=== PATIENT | male | born 1945 | race Caucasian/White ===

== ENCOUNTER 2017-07-29 11:45 | Inpatient (IN) | payer MEDICARE ==
[~2017-07-29] VITALS: Ht 170.2 cm; Wt 75.0 kg
[2017-07-29] VITALS (13 sets, daily range): BP systolic 139–223; BP diastolic 58–94; PULSE 46–59; RESP 15–18; TEMP 98; O2SAT 96–99
--- NOTE | 2017-07-29 11:57 | PD ---
HPI Chief Complaint: Stroke Alert Time Seen by Provider: 11:51 Travel History International Travel<30 days: No Contact w/Intl Traveler<30days: No Traveled to known affect area: No History of Present Illness HPI 72-year-old male patient with history of CAD status post Stents, presents to the ER today brought in by EMS as a stroke alert, about an hour prior to arrival , started having slurred speech, dysarthria according to EMS and family. 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 Modifying Factors: None Associated Signs & Symptoms: Stroke alert, dysarthria Risk Factors: None PFSH Social History Tobacco Use: No Allergies-Medications (Allergen,Severity, Reaction): Coded Allergies: No Known Allergies (Unverified , 07/29/17) Review of Systems Except as stated in HPI: all other systems reviewed are Neg Physical Exam Narrative GENERAL: Well-developed elderly male patient currently in mild distress. Awake and oriented 3. SKIN: Focused skin assessment warm/dry. HEAD: Atraumatic. Normocephalic. EYES: Pupils equal and round. No scleral icterus. No injection or drainage. ENT: No nasal bleeding or discharge. Mucous membranes pink and moist. NECK: Trachea midline. No JVD. CARDIOVASCULAR: Regular rate and rhythm. No murmur appreciated. RESPIRATORY: No accessory muscle use. Clear to auscultation. Breath sounds equal bilaterally. GASTROINTESTINAL: Abdomen soft, non-tender, nondistended. Hepatic and splenic margins not palpable. MUSCULOSKELETAL: No obvious deformities. No clubbing. No cyanosis. No edema. NEUROLOGICAL: Awake and alert. No obvious cranial nerve deficits. Motor grossly within normal limits. Slurred speech. No pronator drift. PSYCHIATRIC: Appropriate mood and affect; insight and judgment normal. Data Data Last Documented VS Vital Signs Date Time Temp Pulse Resp B/P (MAP) Pulse Ox O2 Delivery O2 Flow Rate FiO2 07/29/17 12:31 18 98 Room Air 07/29/17 11:49 98.0 59 213/90 (131) Orders Orders Diet Npo (07/29/17 Lunch) Activity Bed Rest (07/29/17 ) Electrocardiogram (07/29/17 ) I-Stat Profile (07/29/17 11:51) Prothrombin Time / Inr (Pt) (07/29/17 11:51) Act Partial Throm Time (Ptt) (07/29/17 11:51) Complete Blood Count With Diff (07/29/17 11:51) Fibrinogen (07/29/17 11:51) Creatine Kinase (Cpk) (07/29/17 11:51) Troponin I (07/29/17 11:51) Drug Screen, Random Urine (07/29/17 11:51) Type And Screen (07/29/17 11:51) Ct Brain W/O Iv Contrast(Rout) (07/29/17 ) Cta Brain W Iv Contrast W 3d (07/29/17 11:51) Cta Neck W Iv Contrast W 3d (07/29/17 11:51) Consult Neurology (07/29/17 ) Blood Glucose (07/29/17 11:51) Ecg Monitoring (07/29/17 11:51) Neuro Checks Q2HX12,Q4H (07/29/17 11:51) Nursing Bedside Swallow Assess .ONCE (07/29/17 11:51) Iv Access Insert/Monitor (07/29/17 11:51) NPO (07/29/17 11:51) Oximetry (07/29/17 11:51) Resp Oxygen Nc Stroke (07/29/17 ) Cath For Specimen (07/29/17 11:51) Iohexol 350 Inj (Omnipaque 350 Inj) (07/29/17 12:28) Aspirin (Aspirin) (07/29/17 12:45) Nicardipine Inj (Cardene Inj) (07/29/17 12:45) Westergren Sedimentation Rate (07/29/17 12:36) Rapid Plasma Regin (Rpr) W Ttr (07/29/17 12:36) Joan Screen (07/29/17 12:36) Thyroid Stimulating Hormone (07/29/17 12:36) Free Thyroxine (T4) (07/29/17 12:36) Vitamin B1 (Thiamine) (07/29/17 12:36) Vitamin B12 (07/29/17 12:36) Urinalysis - C+S If Indicated (07/29/17 12:36) Ast (Sgot) (07/29/17 12:36) Alt (Sgpt) (07/29/17 12:36) Mri Brain W&W/O Contrast (07/29/17 12:36) Eeg Study (07/29/17 12:36) Echo 2d Comp With Doppler (07/29/17 12:36) Holter Monitor Recording (07/29/17 12:36) Court Clerk / Telemetry ARIEL.Q8H (07/29/17 12:36) Troponin I (07/29/17 12:36) [place] (07/29/17 12:36) Clopidogrel (Plavix) (07/29/17 12:45) Aspirin Ec (Ecotrin Ec) (07/29/17 12:45) Sodium Chlor 0.9% 1000 Ml Inj (Ns 1000 M (07/29/17 12:36) Lipid Profile (07/29/17 12:36) Scd&Teds Bilateral/Knee High ARIEL.QSHIFT (07/29/17 12:36) Urine Culture (07/29/17 12:25) Admit Order (Ed Use Only) (07/29/17 13:02) Labs Laboratory Tests Test 07/29/17 11:55 07/29/17 12:25 White Blood Count 6.6 TH/MM3 Red Blood Count 4.58 MIL/MM3 Hemoglobin 14.2 GM/DL Bedside Hemoglobin 12.9 G/DL Hematocrit 41.2 % Bedside Hematocrit 38.0 % Mean Corpuscular Volume 90.0 FL Mean Corpuscular Hemoglobin 31.1 PG Mean Corpuscular Hemoglobin Concent 34.5 % Red Cell Distribution Width 13.5 % Platelet Count 213 TH/MM3 Mean Platelet Volume 7.5 FL Neutrophils (%) (Auto) 60.3 % Lymphocytes (%) (Auto) 29.9 % Monocytes (%) (Auto) 7.4 % Eosinophils (%) (Auto) 2.0 % Basophils (%) (Auto) 0.4 % Neutrophils # (Auto) 4.0 TH/MM3 Lymphocytes # (Auto) 2.0 TH/MM3 Monocytes # (Auto) 0.5 TH/MM3 Eosinophils # (Auto) 0.1 TH/MM3 Basophils # (Auto) 0.0 TH/MM3 CBC Comment DIFF FINAL Differential Comment Prothrombin Time 10.4 SEC Prothromb Time International Ratio 1.0 RATIO Activated Partial Thromboplast Time 22.9 SEC Fibrinogen 293 mg/dL Bedside Sodium 140 MMOL/L Bedside Potassium 4.2 MMOL/L Bedside Chloride 104 MMOL/L Bedside Blood Urea Nitrogen 15 MG/DL Bedside Creatinine 1.3 MG/DL Bedside Glucose 116 MG/DL Total Creatine Kinase 54 U/L Troponin I LESS THAN 0.02 NG/ML Urine Color LIGHT-YELLOW Urine Turbidity CLEAR Urine pH 7.5 Urine Specific [place] 1.018 Urine Protein NEG mg/dL Urine Glucose (UA) NEG mg/dL Urine Ketones NEG mg/dL Urine Occult Blood NEG Urine Nitrite NEG Urine Bilirubin NEG Urine Urobilinogen LESS THAN 2.0 MG/DL Urine Leukocyte Esterase MOD Urine RBC LESS THAN 1 /hpf Urine WBC 16 /hpf Microscopic Urinalysis Comment CULTURE INDICATED MDM Medical Screen Exam Complete: Yes Emergency Medical Condition: Yes Medical Record Reviewed: Yes Differential Diagnosis Stroke versus ICH versus hypertensive urgency versus metabolic issues Narrative Course CAT scan was initially negative. Dr. Martin of neurology saw the patient, does not feel the patient would be a TPA candidate, also has had some syncopal episodes over the last week according to the family, and at this point, aspirin was given in the ER. Patient will need further workup, and case was discussed with Dr. Mike for admission to medicine. Stroke Alert NIHSS NIH Stroke Scale Result: 1 NIHSS Time Completed: 11:50 Thrombolytic Contraindications Contraindications: Uncontrolled HTN at event Contraindications Comment: Fairly low NIH stroke score. Diagnosis Diagnosis: Primary Impression: CVA (cerebral vascular accident) Additional Impression: Accelerated hypertension Admitting Physician Requests: Admit Irasema Peter MD Jul 29, 2017 11:57
--- NOTE | 2017-07-29 12:13 | RADRPT ---
EXAM DATE/TIME: 07/29/2017 12:05 [facility] COMPARISON: No previous studies available for comparison. INDICATIONS : Stroke alert. Altered mental status. RADIATION DOSE: 39.54 CTDIvol (mGy) This report was called by Dr. Elise to Dr. Villalpando and DR Martin at 12: 11pm MEDICAL HISTORY : Non-responsive. SURGICAL HISTORY : Non-responsive. ENCOUNTER: Initial ACUITY: 1 day PAIN SCALE: Non-responsive LOCATION: Bilateral head TECHNIQUE: Multiple contiguous axial images were obtained of the head. Using automated exposure control and adj ustment of the mA and/or kV according to patient size, radiation dose was kept as low as reasonably a chievable to obtain optimal diagnostic quality images. DICOM format image data is available electro nically for review and comparison. FINDINGS: CEREBRUM: The ventricles are normal for age. No evidence of midline shift, mass lesion, hemorrhage or acute in farction. No extra-axial fluid collections are seen. POSTERIOR FOSSA: The cerebellum and brainstem are intact. The 4th ventricle is midline. The cerebellopontine angle i s unremarkable. EXTRACRANIAL: The visualized portion of the orbits is intact. SKULL: The calvaria is intact. No evidence of skull fracture. CONCLUSION: Normal examination. Misty Elise MD on July 29, 2017 at 12:08 Board Certified Radiologist. This report was verified electronically.
[2017-07-29 12:17] LABS: BASOPHIL % 0.4 % (0.0-2.0); EOSINOPHIL # 0.1 TH/MM3 (0-0.4); HEMATOCRIT 41.2 % (39.0-51.0); HEMOGLOBIN 14.2 GM/DL (13.0-17.0); LYMPH % 29.9 % (9.0-44.0); MEAN CORPUSCULAR HEMOGLOBIN 31.1 PG (27.0-34.0); MEAN CORPUSCULAR HGB CONC 34.5 % (32.0-36.0); MEAN PLATELET VOLUME 7.5 FL (7.0-11.0); MONO % 7.4 % (0.0-8.0); MONOCYTE # 0.5 TH/MM3 (0-0.9); NEUT % 60.3 % (16.0-70.0); PLATELET COUNT 213 TH/MM3 (150-450); RED BLOOD COUNT 4.58 MIL/MM3 (4.50-5.90); RED CELL DISTRIBUTION WIDTH 13.5 % (11.6-17.2); WHITE BLOOD COUNT 6.6 TH/MM3 (4.0-11.0)
[2017-07-29 12:28] LABS: PROTHROMBIN TIME - PATIENT 10.4 SEC (9.8-11.6)
[2017-07-29] MEDS ORDERED: IOHEXOL 350 MG/ML 10 ML VIAL (for RAD DIAG) IVCONTRAST ONE (12:28)
[2017-07-29] MEDS: SODIUM CHLOR 0.9% 1000 ML INJ 1,000 ML IV SCH (12:36)
[2017-07-29 12:39] LABS: TROPONIN I LESS THAN 0.02 NG/ML (0.02-0.05)
[2017-07-29] MEDS: ASPIRIN EC 325 MG TABEC PO SCH (12:45)
[2017-07-29] MEDS: CLOPIDOGREL 75 MG TAB PO SCH (12:45)
[2017-07-29] MEDS ORDERED: ASPIRIN 325 MG TAB PO ONE (12:45)
[2017-07-29] MEDS ORDERED: niCARdipine INJ 25 MG in SODIUM CHLOR 0.9% 250 ML INJ 240 ML IV PRN (12:45)
--- NOTE | 2017-07-29 12:50 | RADRPT ---
EXAM DATE/TIME: 07/29/2017 12:13 [facility] COMPARISON: No previous studies available for comparison. INDICATIONS : Stroke alert, altered mental status. IV CONTRAST: 85 cc Omnipaque 350 (iohexol) IV ; Cumulative dose for multiple exams. RADIATION DOSE: 28.71 CTDIvol (mGy) ; Combined studies MEDICAL HISTORY : Non-responsive. SURGICAL HISTORY : Non-responsive. ENCOUNTER: Initial ACUITY: 1 day PAIN SCALE: Non-responsive LOCATION: Bilateral head TECHNIQUE: Volumetric scanning was performed using a multi-row detector CT scanner. The data was post processed with a variety of visualization algorithms including full volume maximum intensity projection, multi -planar sliding thin slab reformation, curved planar reformation, and surface rendering techniques. Using automated exposure control and adjustment of the mA and/or kV according to patient size, radiat ion dose was kept as low as reasonably achievable to obtain optimal diagnostic quality images. DICO M format image data is available electronically for review and comparison. FINDINGS: There is excellent visualization of the major intracranial arteries out to the second-order branch ve ssels. There is no evidence for aneurysm, vessel truncation or stenosis, and no evidence for vascula r malformation. There is mild atherosclerosis identified within the bilateral carotid bulbs. No evidence of significa nt luminal narrowing. CONCLUSION: No evidence of aneurysm, dissection or stenosis. No significant luminal narrowing.. Misty Elise MD on July 29, 2017 at 12:44 Board Certified Radiologist. This report was verified electronically.
[2017-07-29 12:58] LABS: BILIRUBIN, URINE NEG (NEG); BLOOD, URINE NEG (NEG); GLUCOSE,URINE NEG (NEG); KETONE, URINE NEG (NEG); NITRITE,URINE NEG (NEG); PH, URINE 7.5 (5.0-8.5); URINE COLOR LIGHT-YELLOW (YELLW/STRAW); URINE LEUKOCYTE ESTERASE MOD (NEG)
--- NOTE | 2017-07-29 13:01 | RADRPT ---
EXAM DATE/TIME: 07/29/2017 12:13 [facility] COMPARISON: No previous studies available for comparison. INDICATIONS : Stroke alert, altered mental status. IV CONTRAST: 85 cc Omnipaque 350 (iohexol) IV ; Cumulative dose for multiple exams. RADIATION DOSE: 28.71 CTDIvol (mGy) ; Combined studies MEDICAL HISTORY : Non-responsive. SURGICAL HISTORY : Non-responsive. ENCOUNTER: Initial ACUITY: 1 day PAIN SCALE: Non-responsive LOCATION: Bilateral neck Elevated flow velocities and ICA/CCA ratios have been found to correlate with increased degrees of vessel stenosis, calculated as percentage of diameter relative to a normal segment of distal ICA/CCA. TECHNIQUE: Volumetric scanning was performed using a multirow detector CT scanner. The data was post processed with a variety of visualization algorithms including full-volume maximum intensity projection, multip lanar sliding thin-slab reformation, curved-planar reformation, and surface-rendering techniques. Us ing automated exposure control and adjustment of the mA and/or kV according to patient size, radiatio n dose was kept as low as reasonably achievable to obtain optimal diagnostic quality images. DICOM f ormat image data is available electronically for review and comparison. FINDINGS: AORTIC ARCH: There is a three-vessel origin of the great vessels from the aorta. No evidence of ostial narrowing. RIGHT CAROTID: The common carotid artery is intact. The carotid bulb has a normal configuration without ulceration o r narrowing. The internal carotid artery lumen is smooth without stenosis. The external carotid lillian ry is intact. LEFT CAROTID: The common carotid artery is intact. The carotid bulb has a normal configuration without ulceration or narrowing. The internal carotid artery lumen is smooth without stenosis. The external carotid ar aline is intact. VERTEBRALS: The vertebral arteries have a symmetric diameter. No stenotic lesions are seen. CONCLUSION: Normal vascular anatomy without evidence of stenosis, dissection significant luminal narrowing. Exten sive degenerative changes are identified within the cervical spine. The lungs are significant for a n oncalcified nodule identified within the left upper lobe measuring 4 mm. Misty Elise MD on July 29, 2017 at 12:56 Board Certified Radiologist. This report was verified electronically.
[2017-07-29] MEDS ORDERED: DEXTROSE 50% IN WATER 50 ML VIAL(D50) IV PUSH PRN (13:15)
[2017-07-29] MEDS ORDERED: GLUCAGON 1 MG/ML VIAL OTHER PRN (13:15)
--- NOTE | 2017-07-29 13:18 | MB ---
cc: Branden Martin MD DATE: 07/29/2017 HISTORY OF PRESENT ILLNESS: A 72-year-old right-handed man with hypertension, hypercholesterolemia, cardiac stent, 1 small kidney, Parkinson disease for 11 years, treated [place]. He is down here visiting and said this morning about 9:00 a.m., he had some tingling and numbness on the left fingers and then a little bit of difficulty talking. The sheet metal worker helper thought he had a little bit of left facial droop. He was brought in as a stroke alert, but really his NIH stroke scale was 1. As such, he did not get TPA. REVIEW OF SYSTEMS: He denied any headache, chest pain or palpitations, diabetes, CABG, atrial fibrillation, Coumadin, hepatic or pulmonary disease, thyroid disease, lupus, ulcer, cancer, seizure, or prior stroke. SOCIAL HISTORY: He is not a smoker or drinker, lives with his . FAMILY HISTORY: Negative for cancer, seizure or stroke. MEDICATIONS: 1. Atorvastatin 2. Finasteride. 3. Sinemet 25/100 three a day. 4. Azilect 1 mg a day. 5. Linzess. 6. Venlafaxine. 7. Plavix 75 a day. 8. Metoprolol. 9. Ranitidine. 10. Aspirin 81 mg. 11. Multivitamin. 12. Calcium alkaline. 13. Alfuzosin hydrochloride ER 10 mg. PHYSICAL EXAMINATION: VITAL SIGNS: He is afebrile, heart rate 59, respirations 17, blood pressure 213/90. NECK: There were no carotid bruits. HEART: Regular rhythm. I did not detect a murmur. NEUROLOGIC: Pupils were equal. Visual jackson are full. Extraocular movements intact without nystagmus. Face could have just a hint of droopiness in the left corner of his mouth but he moves it symmetrically with normal sensation. Tongue was midline. There is no drifting. Normal strength in upper and lower extremities bilaterally. DTRs are trace throughout. Toes downgoing bilaterally. Pinprick is intact throughout including the left side of his face and his left fingers. He is not ataxic on [id number]. Speech is fluent. He is not aphasic. Tone: No major cogwheel rigidity right now. He is a little bit clumsy on fast finger movements bilaterally due to his Parkinson's, a little bit worse in the left than the right. He has a little bit of tremor in the left hand, but he said he was shaking that himself. LABORATORY DATA: CBC is normal. Basic metabolic profile is normal at this time. Glucose 116. Coags are normal. IMAGING STUDIES: CT scan of the brain was normal. CT of the neck and [place] also looks normal. He has a little bit of calcification on the left carotid, but otherwise negative. EKG shows sinus rhythm. IMPRESSION AND PLAN: Some history of Parkinson disease, a little bit of numbness by history on the left hand and fingers and the left face, a little bit thickened speech ,sounds like a transient ischemic attack. For now, he is already on Plavix. He is in sinus rhythm here on telemetry and his CTAs are negative. We will do an echo and a Holter, and I have just increased his aspirin to 325 at this time. Do an MRI of the brain and EEG. Should get a prolonged monitor on him at some point, [place], at least a 30-day monitor, possibly a loop recorder unless something else shows up here. Check some additional blood work on him, a lipid profile. He tells me he has not missed his Plavix at all. It would be okay to run his blood pressure down to 160 at this time. I will be following him while he is in the hospital. I note at this time, his NIH stroke scale would be 0 and he did not get TPA as a result. MD ROXANA Hernandez/ALONA , 12:38 PM , 01:16 PM
--- NOTE | 2017-07-29 15:10 | MB ---
cc: Branden Martin MD DATE: 07/29/2017 ADDENDUM After talking with the family, they tell me passed out twice in the last 2 weeks and yesterday, he had a similar symptom of left-sided tingling and high blood pressure. I have recommended to have cardiology see him to the med team. MD ROXANA Hernandez/ALONA , 02:38 PM , 03:09 PM
[2017-07-29] MEDS ORDERED: ENALAPRILAT 1.25 MG/ML VIAL IV PUSH PRN (15:30)
[2017-07-29] MEDS ORDERED: METOPROLOL TARTRATE 25 MG TAB PO ONE (15:30)
--- NOTE | 2017-07-29 15:54 | HHI.HP ---
[facility] Unknown Admission Diagnosis Stroke alert/severe hypertension Diagnoses: (1) TIA (transient ischemic attack) (2) Accelerated hypertension Chief Complaint: numbness in hands Travel History International Travel<30 Days: No Contact w/Intl Traveler <30 Da: No Traveled to Known Affected Are: No History of Present Illness The patient is a 72-year-old male with history of TIA who presented to the emergency department with complaint of numbness in his hands that started this morning. He also had some difficulty speaking. His states that his speech was slurred and he had left-sided facial droop. He reported weakness on his left side. Symptoms have essentially resolved at this point. Denies headache or vision changes. Denies chest pain or dyspnea. Review of Systems Constitutional: DENIES: Fever, Chills, Night Sweats Eyes: DENIES: Blurred vision, Vision loss Ears, nose, mouth, throat: DENIES: Hearing loss Respiratory: DENIES: Cough, Wheezing, Sputum production, Shortness of breath Cardiovascular: DENIES: Chest pain, Palpitations, Dyspnea on Exertion, Lower Extremity Edema Gastrointestinal: DENIES: Abdominal pain, Constipation, Diarrhea, Nausea, Vomiting Genitourinary: DENIES: Urinary frequency, Urinary incontinence, Urgency, Hematuria, Dysuria, Nocturia Musculoskeletal: DENIES: Joint pain, Muscle aches Integumentary: DENIES: Pruritus, Rash Hematologic/lymphatic: DENIES: Bruising Neurologic: COMPLAINS OF: Paresthesias, DENIES: Headache Past Family Social History Past Medical History History of TIA in February 2017 Coronary artery disease Parkinson's Past Surgical History Cardiac catheterization with placement of 2 stents Reported Medications Metoprolol 25 mg twice daily Plavix 75 mg daily Atorvastatin Finasteride Sinemet Azilect Linzess Venlafaxine Ranitidine Aspirin 81 mg daily Multivitamin Calcium supplement Alfuzosin Allergies: Coded Allergies: No Known Allergies (Unverified , 07/29/17) Family History Heart disease Social History Denies tobacco or illicit drug use. Rare alcohol use. Physical Exam Vital Signs Vital Signs Date Time Temp Pulse Resp B/P (MAP) Pulse Ox O2 Delivery O2 Flow Rate FiO2 4/7/18 15:15 50 139/58 (85) 07/29/17 15:00 55 144/65 (91) 07/29/17 14:50 99 Room Air 07/29/17 14:45 50 149/68 (95) 07/29/17 14:00 46 185/79 (114) 07/29/17 13:25 51 18 141/65 (90) 99 Room Air 07/29/17 13:10 50 209/83 07/29/17 12:31 18 98 Room Air 07/29/17 12:31 98 Room Air 07/29/17 11:49 98.0 59 17 213/90 (131) 98 Physical Exam GENERAL: Well-nourished, well-developed male in no acute distress. HEENT: Normocephalic, atraumatic. Pupils equal, round and reactive. Extraocular movements intact. No scleral icterus. No injection or drainage. Oropharynx is clear. Mucous membranes are moist. CARDIOVASCULAR: Regular rate and rhythm without murmurs, gallops, or rubs. RESPIRATORY: Clear to auscultation. No wheezes, rales, or rhonchi. Breathing is non-labored. GASTROINTESTINAL: Abdomen soft, non-tender, nondistended. EXTREMITIES: No lower extremity edema. No calf tenderness. PSYCH: Alert and oriented x 3. NEURO: Cranial nerves II through XII are grossly intact. Strength is 5/5 in upper and lower extremities. Laboratory Laboratory Tests Test 07/29/17 11:55 07/29/17 12:25 White Blood Count 6.6 Red Blood Count 4.58 Hemoglobin 14.2 Bedside Hemoglobin 12.9 Hematocrit 41.2 Bedside Hematocrit 38.0 Mean Corpuscular Volume 90.0 Mean Corpuscular Hemoglobin 31.1 Mean Corpuscular Hemoglobin Concent 34.5 Red Cell Distribution Width 13.5 Platelet Count 213 Mean Platelet Volume 7.5 Neutrophils (%) (Auto) 60.3 Lymphocytes (%) (Auto) 29.9 Monocytes (%) (Auto) 7.4 Eosinophils (%) (Auto) 2.0 Basophils (%) (Auto) 0.4 Neutrophils # (Auto) 4.0 Lymphocytes # (Auto) 2.0 Monocytes # (Auto) 0.5 Eosinophils # (Auto) 0.1 Basophils # (Auto) 0.0 CBC Comment DIFF FINAL Differential Comment Prothrombin Time 10.4 Prothromb Time International Ratio 1.0 Activated Partial Thromboplast Time 22.9 Fibrinogen 293 Bedside Sodium 140 Bedside Potassium 4.2 Bedside Chloride 104 Bedside Blood Urea Nitrogen 15 Bedside Creatinine 1.3 Bedside Glucose 116 Total Creatine Kinase 54 Troponin I LESS THAN 0.02 Urine Color LIGHT-YELLOW Urine Turbidity CLEAR Urine pH 7.5 Urine Specific Herre[place] 1.018 Urine Protein NEG Urine Glucose (UA) NEG Urine Ketones NEG Urine Occult Blood NEG Urine Nitrite NEG Urine Bilirubin NEG Urine Urobilinogen LESS THAN 2.0 Urine Leukocyte Esterase MOD Urine RBC LESS THAN 1 Urine WBC 16 Microscopic Urinalysis Comment CULTURE INDICATED Urine Opiates Screen NEG Urine Barbiturates Screen NEG Urine Amphetamines Screen NEG Urine Benzodiazepines Screen NEG Urine Cocaine Screen NEG Urine Cannabinoids Screen NEG Date/Time Source Procedure Growth Status 07/29/17 12:25 Urine Clean Catch Urine Culture Pending Received Result Diagram: 07/29/17 1155 Imaging Last Impressions Neck CTA 07/29/17 1151 Signed Impressions: Service Date/Time: Saturday, July 29, 2017 12:13 - CONCLUSION: Normal vascular anatomy without evidence of stenosis, dissection significant luminal narrowing. Extensive degenerative changes are identified within the cervical spine. The lungs are significant for a noncalcified nodule identified within the left upper lobe measuring 4 mm. Misty Elise MD Head CTA 07/29/17 1151 Signed Impressions: Service Date/Time: Saturday, July 29, 2017 12:13 - CONCLUSION: No evidence of aneurysm, dissection or stenosis. No significant luminal narrowing.. Misty Elise MD Head CT 07/29/17 0000 Signed Impressions: Service Date/Time: Saturday, July 29, 2017 12:05 - CONCLUSION: Normal examination. Misty Elise MD Caprini VTE Risk Assessment Caprini VTE Risk Assessment: Mod/High Risk (score >= 2) Caprini Risk Assessment Model Point Value = 1 Point Value = 2 Point Value = 3 Point Value = 5 Age 41-60 Minor surgery BMI > 25 kg/m2 Swollen legs Varicose veins or History of unexplained or recurrent spontaneous Oral contraceptives or hormone replacement Sepsis (< 1 month) Serious lung disease, including pneumonia (< 1 month) Abnormal pulmonary function Acute myocardial infarction Congestive heart failure (< 1 month) History of inflammatory bowel disease Medical patient at bed rest Age 61-74 Arthroscopic surgery Major open surgery (> 45 min) Laparoscopic surgery (> 45 min) Malignancy Confined to bed (> 72 hours) Immobilizing plaster cast Central venous access Age >= 75 History of VTE Family history of VTE Factor V Leiden Prothrombin [id number] Lupus anticoagulant Anticardiolipin antibodies Elevated serum homocysteine Heparin-induced thrombocytopenia Other congenital or acquired thrombophilia Stroke (< 1 month) Elective arthroplasty Hip, pelvis, or leg fracture Acute spinal cord injury (< 1 month) Prophylaxis Regimen Total Risk Factor Score Risk Level Prophylaxis Regimen 0-1 Low Early ambulation 2 Moderate Order ONE of the following: *Sequential Compression Device (SCD) *Heparin 5000 units SQ BID 3-4 Higher Order ONE of the following medications: *Heparin 5000 units SQ TID *Enoxaparin/Lovenox 40 mg SQ daily (WT < 150 kg, CrCl > 30 mL/min) *Enoxaparin/Lovenox 30 mg SQ daily (WT < 150 kg, CrCl > 10-29 mL/min) *Enoxaparin/Lovenox 30 mg SQ BID (WT < 150 kg, CrCl > 30 mL/min) AND/OR *Sequential Compression Device (SCD) 5 or more Highest Order ONE of the following medications: *Heparin 5000 units SQ TID (Preferred with Epidurals) *Enoxaparin/Lovenox 40 mg SQ daily (WT < 150 kg, CrCl > 30 mL/min) *Enoxaparin/Lovenox 30 mg SQ daily (WT < 150 kg, CrCl > 10-29 mL/min) *Enoxaparin/Lovenox 30 mg SQ BID (WT < 150 kg, CrCl > 30 mL/min) AND *Sequential Compression Device (SCD) Assessment and Plan Assessment and Plan 1. TIA: Patient developed numbness in his hands, slurred speech, and left facial droop. Symptoms have resolved. Imaging is unremarkable. Appreciate neurology recommendations. Patient was not a candidate to receive TPA. Continue Plavix. Echocardiogram, Holter monitor ordered. Aspirin increased to 325 mg daily. Cardiology consulted. 2. Hypertensive urgency: Blood pressure significantly elevated. Patient was placed on nicardipine drip initially. Will transition him off of the nicardipine and increase oral beta-cherie. Vasotec IV as needed. 3. Coronary artery disease: No chest pain. Check serial cardiac enzymes. Patient's states that he is due to have another stent placed when he returns to [place]. Consult cardiology for further recommendations. 4. DVT prophylaxis: SHARI Freitas. Volodymyr Mike MD Jul 29, 2017 15:54
[2017-07-29 16:14] LABS: AST (GOT) 19 U/L (15-37); CHOLESTEROL 138 MG/DL (120-200)
[2017-07-29 16:40] LABS: ALT (GPT) 22 U/L (12-78); CHOLESTEROL/ HDL RATIO 2.35 RATIO; HDL CHOLESTEROL 58.6 MG/DL (40.0-60.0); LDL CHOLESTEROL 53 MG/DL (0-99); TRIGLYCERIDES 132 MG/DL (42-150); TROPONIN I LESS THAN 0.02 NG/ML (0.02-0.05)
[2017-07-29] MEDS ORDERED: GADODIAMIDE PF 287 MG/ML 20 ML VIAL (for RAD MRI) IVCONTRAST ONE (16:42)
[2017-07-29] MEDS: INSULIN ASPART SUPPLEMENTAL SCALE SQ SCH ×2 (17:00→21:00)
[2017-07-29] MEDS ORDERED: PLAV75TA29 PO (17:29)
[2017-07-29] MEDS ORDERED: ALFU10TA2 PO (17:29)
[2017-07-29] MEDS ORDERED: VENL100T PO (17:29)
[2017-07-29] MEDS ORDERED: METO25TA3 PO (17:29)
[2017-07-29] MEDS ORDERED: CARB25TA9 PO ×2 (17:29)
[2017-07-29] MEDS ORDERED: LINA145C PO (17:29)
[2017-07-29] MEDS ORDERED: AZIL1TAB2 (17:29)
[2017-07-29] MEDS ORDERED: ATOR20TA15 PO (17:29)
[2017-07-29] MEDS ORDERED: RANI150T PO (17:29)
[2017-07-29] MEDS ORDERED: ASPI-516 CHEW (17:29)
[2017-07-29 17:37] LABS: TROPONIN I LESS THAN 0.02 NG/ML (0.02-0.05)
--- NOTE | 2017-07-29 18:27 | RADRPT ---
EXAM DATE/TIME: 07/29/2017 16:26 [place] COMPARISON: No previous studies available for comparison. INDICATIONS : Slurred speech. Left side weakness. CONTRAST: 16 cc Omniscan (gadodiamide) IV MEDICAL HISTORY : Parkinson's. Hypertension. SURGICAL HISTORY : Coronary artery stent. ENCOUNTER: Initial ACUITY: 1 day PAIN SCORE: 0/10 LOCATION: cranial TECHNIQUE: Multiplanar, multisequence MRI of the brain was performed both prior to and following the administrat ion of paramagnetic contrast. FINDINGS: CEREBRUM: The ventricles are normal for age. No evidence of midline shift, mass lesion, hemorrhage or acute in farction. No extraaxial fluid collections are seen. The pituitary gland and suprasellar cistern are normal in configuration. WHITE MATTER: Scattered signal abnormalities are seen in the white matter. POSTERIOR FOSSA: The cerebellum and brainstem are intact. The 4th ventricle is midline. The cerebellopontine angle is unremarkable. The cerebellar tonsils are normal in position. DIFFUSION IMAGING: No focal areas of restricted diffusion are seen. No evidence of acute infarction. EXTRACRANIAL: The visualized portions of the orbits and paranasal sinuses are unremarkable. POST-CONTRAST: No abnormal areas of parenchymal or dural enhancement. No evidence of blood-brain barrier breakdown. CONCLUSION: 1. Cerebral white matter disease with scattered T2 hyperintensities characteristic of chronic microva scular ischemic changes. 2. No evidence of acute infarct, hemorrhage, mass or edema. Robert Trevizo MD on July 29, 2017 at 18:23 Board Certified Radiologist. This report was verified electronically.
--- NOTE | 2017-07-29 20:36 | MB ---
cc: Dusty Connelly DO DATE: 07/29/2017 REASON FOR CONSULTATION: TIA, syncopal episode. HISTORY OF PRESENT ILLNESS: Eugenio Alcantara is a pleasant 72-year-old male who presented to [facility] Emergency Room on 07/29/2017 due to numbness in his hands that started this morning. The patient is overall a difficult historian as he is having some dysarthria. Apparently his was around earlier to get more information from, but when seeing the patient no family is around. Apparently when chemical process operator arrived, he had some left facial droop and was brought in as a stroke alert. Apparently, the mentioned to the ER doctor, as well as neurology that he has passed out twice in the last 2 weeks and had similar symptoms of left-sided tingling with high blood pressure. I was asked to see him due to this as well as his history of coronary artery disease. Per the notes, the patient had recent stenting done and is due to have another stent placed when he returns to [place]. I have no further information on this at this time. PAST MEDICAL HISTORY: 1. Coronary artery disease. 2. TIA (02/2017). 3. Parkinson's. PAST SURGICAL HISTORY: Cardiac catheterization with placement of 2 stents to unknown coronary anatomy (done in [place]). ALLERGIES: NO KNOWN DRUG ALLERGIES. MEDICATIONS: 1. Alfuzosin 10 mg daily. 2. Plavix 75 mg daily. 3. Lipitor 20 mg every night. 4. Metoprolol tartrate 25 mg b.i.d. 5. Aspirin 81 mg daily. 6. Effexor 150 mg daily. 7. Carbidopa/levodopa 25/100 every 8 hours. 8. ____ 150 mg daily. 9. Linzess 145 mcg daily. FAMILY HISTORY: Denies premature coronary artery disease or sudden cardiac within the family. SOCIAL HISTORY: Denies tobacco, alcohol or drug abuse. REVIEW OF SYSTEMS: Fourteen systems were reviewed including osteopathic. Pertinent positives and negatives above, otherwise negative. PHYSICAL EXAMINATION: VITAL SIGNS: Temperature 98.0, heart rate 55, blood pressure 144/65, respirations 18, pulse oximetry 99% on room air. GENERAL: The patient appears well, no acute distress. Alert, awake and oriented x 3. HEENT: Extraocular muscles intact. Mucous membranes moist. NECK: Supple. No JVD at 45 degrees. No carotid bruits heard bilaterally. Carotid upstroke is brisk in nature. HEART: Mildly bradycardic, but positive first and second heart sounds with no noted murmurs, gallops or rubs. LUNGS: Clear to auscultation bilaterally. No wheezes, rales or rhonchi. ABDOMEN: Soft, nontender, nondistended. No organomegaly noted. EXTREMITIES: Show no clubbing, cyanosis or edema. Femoral and distal pulses intact bilaterally. NEUROLOGIC: Does have minimal facial droop noted on the left side. Otherwise, no focal deficits noted. OSTEOPATHIC: No kyphoscoliosis, lordosis or paraspinal tender points. LABORATORY DATA: Hemoglobin 14.2, hematocrit 41.2, platelets 213. Potassium 4.2, BUN 15, creatinine 1.3. Troponin negative x 2. Electrocardiogram (07/29/2017 at 1236) sinus rhythm with possible PACs versus an atrial bigeminy, nonspecific ST-T wave changes. IMPRESSIONS: 1. Transient ischemic attack. 2. Hypertensive urgency. 3. Coronary artery disease. 4. Syncopal episode of unknown cause. 5. Probable atrial bigeminy by EKG. RECOMMENDATIONS: 1. Mr. Alcantara presented with TIA-like symptoms and will be worked up per neurology. 2. We will plan on checking a 2-D echo to look at his overall left ventricular function, cardiac structure and possible valvulopathies. 3. As far as his coronary artery disease goes, he can continue on aspirin and Plavix therapy. At this time, he has no symptoms concerning for changes of his coronary anatomy, as well as having a recent TIA would be contraindicated for further consideration of ischemic evaluation. 4. Overall, he needs better blood pressure control. 5. He does have atrial bigeminy on his EKG, but this in itself should not lead to syncopal episodes. Syncope may be due to hypertensive urgency. 6. Overall, I agree with Dr. Martin that he should have some type of rhythm analysis, but this may have to be deferred until he is back in [place] with his rn clinician for a longer event monitor of 30 days or loop recorder. Thank you for allowing me to see Eugenio Alcantara. If there are any questions, please do not hesitate to call. Dusty Connelly DO VGP/rt , 05:43 PM , 08:35 PM MTDRaven
[2017-07-29] MEDS ORDERED: METOPROLOL TARTRATE 50 MG TAB PO SCH (21:00)
[2017-07-29] MEDS: METOPROLOL TARTRATE 25 MG TAB PO SCH (21:00)
[2017-07-29] MEDS ORDERED: cloNIDine HCL 0.1 MG TAB PO ONE (21:15)
[2017-07-29 23:02] LABS: TROPONIN I LESS THAN 0.02 NG/ML (0.02-0.05)
[2017-07-30] VITALS (27 sets, daily range): BP systolic 98–200; BP diastolic 54–92; PULSE 48–83; RESP 15–17; TEMP 97.5–97.8; O2SAT 97–100
[2017-07-30 05:13] LABS: CHOLESTEROL/ HDL RATIO 2.54 RATIO; HDL CHOLESTEROL 56.6 MG/DL (40.0-60.0)
[2017-07-30] MEDS ORDERED: hydrALAZINE HCL 20 MG/ML VIAL IV PUSH ONE (05:45)
[2017-07-30] MEDS: SODIUM CHLOR 0.9% 1000 ML INJ 1,000 ML IV SCH ×3 (05:57→23:35)
--- NOTE | 2017-07-30 07:23 | HHI.PR ---
Subjective Remarks sr no new co Objective Vital Signs Date Time Temp Pulse Resp B/P (MAP) Pulse Ox O2 Delivery O2 Flow Rate FiO2 07/30/17 07:07 77 17 169/77 (107) 100 07/30/17 06:41 63 15 153/71 (98) 99 Room Air 07/30/17 06:24 53 16 131/63 (85) 99 Room Air 07/30/17 06:03 57 17 173/83 (113) 99 Room Air 07/30/17 05:45 54 16 189/86 (120) 97 Room Air 07/30/17 05:34 54 15 200/89 (126) 98 Room Air 07/30/17 05:00 48 15 186/83 (117) 97 Room Air 07/30/17 04:04 54 16 183/84 (117) 97 Room Air 07/30/17 03:00 48 15 190/84 (119) 98 Room Air 07/30/17 02:20 52 15 173/80 (111) 99 Room Air 07/30/17 00:05 50 15 178/83 (114) 97 Room Air 07/29/17 23:30 48 15 168/78 (108) 96 Room Air 07/29/17 23:00 54 16 185/84 (117) 96 Room Air 07/29/17 22:28 47 17 191/89 (123) 96 Room Air 07/29/17 22:20 51 17 203/92 (129) 97 Room Air 07/29/17 22:01 55 17 223/93 (136) 97 Room Air 07/29/17 18:07 52 204/94 (130) 07/29/17 15:15 50 139/58 (85) 07/29/17 15:00 55 144/65 (91) 07/29/17 14:50 99 Room Air 07/29/17 14:45 50 149/68 (95) 07/29/17 14:00 46 185/79 (114) 07/29/17 13:25 51 18 141/65 (90) 99 Room Air 07/29/17 13:10 50 209/83 07/29/17 12:31 18 98 Room Air 07/29/17 12:31 98 Room Air 07/29/17 11:49 98.0 59 17 213/90 (131) 98 Result Diagram: 07/29/17 1155 Objective Remarks speech clear now vff face sym 5/5 clumsy bilat left hand tremor Assessment and Plan Assessment and Plan imp PD i wonder if just a bad PD day with speech change however that does not account for the left hand tingle if echo neg could dc on asa 325 and plavix and need fu with cards and neuro up [facility] here ctax2 nl and mri neg labs all ok ldl nl check standing bp needs bp lower now too high can run to 120/70 Branden Martin MD Jul 30, 2017 07:23
[2017-07-30] MEDS: INSULIN ASPART SUPPLEMENTAL SCALE SQ SCH ×4 (08:00→21:00)
[2017-07-30] MEDS ORDERED: CLOPIDOGREL 75 MG TAB PO SCH (09:00)
[2017-07-30] MEDS ORDERED: ASPIRIN 81 MG CHEW TAB CHEW SCH (09:00)
[2017-07-30] MEDS ORDERED: NON-FORMULARY DRUG (Linaclotide (Linzess) 145 MCG) PO SCH (09:00)
[2017-07-30] MEDS ORDERED: METOPROLOL TARTRATE 25 MG TAB PO SCH (09:00)
[2017-07-30] MEDS: TAMSULOSIN HCL 0.4 MG CAP PO SCH (10:00)
[2017-07-30] MEDS: VENLAFAXINE HCL 25 MG TAB PO SCH (10:01)
[2017-07-30] MEDS: CLOPIDOGREL 75 MG TAB PO SCH (10:01)
[2017-07-30] MEDS: amLODIPine BESYLATE 5 MG TAB PO SCH (10:01)
[2017-07-30] MEDS: METOPROLOL TARTRATE 25 MG TAB PO SCH ×2 (10:02→21:00)
[2017-07-30] MEDS: ASPIRIN EC 325 MG TABEC PO SCH (10:03)
[2017-07-30] MEDS: FAMOTIDINE 20 MG TAB PO SCH ×2 (10:56→21:12)
[2017-07-30 12:48] LABS: HEMOGLOBIN A1C 5.4 % (4.3-6.0)
--- NOTE | 2017-07-30 14:02 | PD.CARD.PN ---
Subjective Subjective Remarks No events overnight Feels well Speech back to baseline per Objective Medications Current Medications Medications (Trade) Dose Ordered Sig/Szuie Route Start Time Stop Time Status Last Admin (Plavix) 75 mg DAILY PO 07/29/17 12:45 07/30/17 10:01 (Ecotrin Ec) 325 mg DAILY PO 07/29/17 12:45 07/30/17 10:03 Sodium Chloride 1,000 ml @ 75 mls/hr [id number] IV 07/29/17 12:36 07/30/17 05:57 (NovoLOG SUPPLEMENTAL SCALE) 1 ACHS SQ 07/29/17 17:00 (D50w (Vial) Inj) 50 ml UNSCH PRN IV PUSH 07/29/17 13:15 (Glucagon Inj) 1 mg UNSCH PRN OTHER 07/29/17 13:15 (Vasotec Inj) 1.25 mg Q6H PRN IV PUSH 07/29/17 15:30 07/30/17 03:14 (Lopressor) 25 mg Q12HR PO 07/29/17 21:00 07/30/17 10:02 (Norvasc) 5 mg DAILY PO 07/30/17 09:00 07/30/17 10:01 (Lipitor) 20 mg HS PO 07/30/17 21:00 (Sinemet 25-100 Mg) 1 tab Q8HR PO 07/30/17 14:00 (Effexor) 150 mg DAILY PO 07/30/17 09:00 07/30/17 10:01 (Flomax) 0.4 mg DAILY PO 07/30/17 10:00 Non-Formulary Medication 145 mcg DAILY PO 07/30/17 09:00 UNV (Pepcid) 20 mg BID PO 07/30/17 09:30 07/30/17 10:56 Vital Signs / I&O Vital Signs Date Time Temp Pulse Resp B/P (MAP) Pulse Ox O2 Delivery O2 Flow Rate FiO2 07/30/17 13:21 62 158/88 (111) 64 99/58 (72) 62 147/92 (110) 07/30/17 13:00 56 17 117/57 (77) 07/30/17 08:44 61 161/73 (102) 07/30/17 07:32 100 07/30/17 07:30 140/67 (91) 07/30/17 07:29 62 98/54 (69) 100 07/30/17 07:26 83 17 106/57 (73) Room Air 07/30/17 07:07 77 17 169/77 (107) 100 07/30/17 06:41 63 15 153/71 (98) 99 Room Air 07/30/17 06:24 53 16 131/63 (85) 99 Room Air 07/30/17 06:03 57 17 173/83 (113) 99 Room Air 07/30/17 05:45 54 16 189/86 (120) 97 Room Air 07/30/17 05:34 54 15 200/89 (126) 98 Room Air 07/30/17 05:00 48 15 186/83 (117) 97 Room Air 07/30/17 04:04 54 16 183/84 (117) 97 Room Air 07/30/17 03:00 48 15 190/84 (119) 98 Room Air 07/30/17 02:20 52 15 173/80 (111) 99 Room Air 07/30/17 00:05 50 15 178/83 (114) 97 Room Air 07/29/17 23:30 48 15 168/78 (108) 96 Room Air 07/29/17 23:00 54 16 185/84 (117) 96 Room Air 07/29/17 22:28 47 17 191/89 (123) 96 Room Air 07/29/17 22:20 51 17 203/92 (129) 97 Room Air 07/29/17 22:01 55 17 223/93 (136) 97 Room Air 07/29/17 18:07 52 204/94 (130) 07/29/17 15:15 50 139/58 (85) 07/29/17 15:00 55 144/65 (91) 07/29/17 14:50 99 Room Air 07/29/17 14:45 50 149/68 (95) 07/29/17 14:00 46 185/79 (114) Physical Exam GENERAL: NAD, AAOX3 SKIN: Warm and dry. HEAD: Atraumatic. Normocephalic. EYES: Pupils equal and round. No scleral icterus. No injection or drainage. ENT: No nasal bleeding or discharge. Mucous membranes pink and moist. NECK: Trachea midline. No JVD. CARDIOVASCULAR: Regular rate and rhythm. RESPIRATORY: No accessory muscle use. Clear to auscultation. Breath sounds equal bilaterally. GASTROINTESTINAL: Abdomen soft, non-tender, nondistended. Hepatic and splenic margins not palpable. MUSCULOSKELETAL: Extremities without clubbing, cyanosis, or edema. No obvious deformities. NEUROLOGICAL: Awake and alert. No obvious cranial nerve deficits. Motor grossly within normal limits. Five out of 5 muscle strength in the arms and legs. Normal speech. PSYCHIATRIC: Appropriate mood and affect; insight and judgment normal. Laboratory Laboratory Tests Test 07/29/17 15:28 07/29/17 16:00 07/29/17 22:15 07/30/17 04:20 Erythrocyte Sedimentation Rate 11 mm/hr Aspartate Amino Transf (AST/SGOT) 19 U/L Alanine Aminotransferase (ALT/SGPT) 22 U/L Troponin I LESS THAN 0.02 NG/ML LESS THAN 0.02 NG/ML LESS THAN 0.02 NG/ML Triglycerides Level 132 MG/DL 127 MG/DL Cholesterol Level 138 MG/DL 144 MG/DL LDL Cholesterol 53 MG/DL 62 MG/DL HDL Cholesterol 58.6 MG/DL 56.6 MG/DL Cholesterol/HDL Ratio 2.35 RATIO 2.54 RATIO Vitamin B12 Level 678 PG/ML Free Thyroxine 1.00 NG/DL Thyroid Stimulating Hormone 3rd Gen 3.020 uIU/ML Total Creatine Kinase 38 U/L 48 U/L Hemoglobin A1c 5.4 % Assessment and Plan Problem List: (1) CAD (coronary artery disease) ICD Codes: I25.10 - Atherosclerotic heart disease of [place] coronary artery without angina pectoris (2) Parkinsonism ICD Codes: G20 - Parkinson's disease (3) TIA (transient ischemic attack) ICD Codes: G45.9 - Transient cerebral ischemic attack, unspecified (4) Accelerated hypertension ICD Codes: I10 - Essential (primary) hypertension Status: Acute Assessment and Plan 1) TIA Per neurology 2) CAD Stable, can follow up with cardiology up in [place] Per the , he had 2-3 stents in Feb and is due for another in the near future when they go back Con't ASA/Plavix 3) Syncope Possible due to hypertensive urgency? Patient asymptomatic before the events, no CP/SOB/palpitations Needs moth exterminator rhythm analysis Previously had 30 day monitor at home Recommend either another event monitor or loop recorder once back in [place] 4) HTN Somewhat better controlled today 5) 2D echo pending Dusty Connelly DO Jul 30, 2017 14:02
--- NOTE | 2017-07-30 15:01 | HHI.PR ---
Subjective Remarks The patient is a 72-year-old male with history of TIA who presented to the emergency department with complaint of numbness in his hands that started this morning. He also had some difficulty speaking. His states that his speech was slurred and he had left-sided facial droop. He reported weakness on his left side. Symptoms have essentially resolved at this point. Denies headache or vision changes. Denies chest pain or dyspnea. 07-30 patient has been seen by cardiology and neurology. Patient is having blatant orthostasis Discussed with RN and patient and family and Patient is going for a stat MRI due to symptoms that appear to sound more like orthostasis and hypotension, than actual stroke or TIA, similar symptoms from his Parkinson's Patient will need event monitor when he goes back to [place] Echo is pending We will more than likely be cleared by neurology but will hold him today due to his hypotension and orthostasis Objective Vitals Vital Signs Date Time Temp Pulse Resp B/P (MAP) Pulse Ox O2 Delivery O2 Flow Rate FiO2 07/30/17 13:21 62 158/88 (111) 64 99/58 (72) 62 147/92 (110) 07/30/17 13:00 56 17 117/57 (77) 07/30/17 08:44 61 161/73 (102) 07/30/17 07:32 100 07/30/17 07:30 140/67 (91) 07/30/17 07:29 62 98/54 (69) 100 07/30/17 07:26 83 17 106/57 (73) Room Air 07/30/17 07:07 77 17 169/77 (107) 100 07/30/17 06:41 63 15 153/71 (98) 99 Room Air 07/30/17 06:24 53 16 131/63 (85) 99 Room Air 07/30/17 06:03 57 17 173/83 (113) 99 Room Air 07/30/17 05:45 54 16 189/86 (120) 97 Room Air 07/30/17 05:34 54 15 200/89 (126) 98 Room Air 07/30/17 05:00 48 15 186/83 (117) 97 Room Air 07/30/17 04:04 54 16 183/84 (117) 97 Room Air 07/30/17 03:00 48 15 190/84 (119) 98 Room Air 07/30/17 02:20 52 15 173/80 (111) 99 Room Air 07/30/17 00:05 50 15 178/83 (114) 97 Room Air 07/29/17 23:30 48 15 168/78 (108) 96 Room Air 07/29/17 23:00 54 16 185/84 (117) 96 Room Air 07/29/17 22:28 47 17 191/89 (123) 96 Room Air 07/29/17 22:20 51 17 203/92 (129) 97 Room Air 07/29/17 22:01 55 17 223/93 (136) 97 Room Air 07/29/17 18:07 52 204/94 (130) 07/29/17 15:15 50 139/58 (85) 07/29/17 15:00 55 144/65 (91) Result Diagram: 07/29/17 1155 Other Results Laboratory Tests Test 07/29/17 11:55 07/29/17 12:25 07/29/17 15:28 07/29/17 16:00 White Blood Count 6.6 TH/MM3 Red Blood Count 4.58 MIL/MM3 Hemoglobin 14.2 GM/DL Bedside Hemoglobin 12.9 G/DL Hematocrit 41.2 % Bedside Hematocrit 38.0 % Mean Corpuscular Volume 90.0 FL Mean Corpuscular Hemoglobin 31.1 PG Mean Corpuscular Hemoglobin Concent 34.5 % Red Cell Distribution Width 13.5 % Platelet Count 213 TH/MM3 Mean Platelet Volume 7.5 FL Neutrophils (%) (Auto) 60.3 % Lymphocytes (%) (Auto) 29.9 % Monocytes (%) (Auto) 7.4 % Eosinophils (%) (Auto) 2.0 % Basophils (%) (Auto) 0.4 % Neutrophils # (Auto) 4.0 TH/MM3 Lymphocytes # (Auto) 2.0 TH/MM3 Monocytes # (Auto) 0.5 TH/MM3 Eosinophils # (Auto) 0.1 TH/MM3 Basophils # (Auto) 0.0 TH/MM3 CBC Comment DIFF FINAL Differential Comment Prothrombin Time 10.4 SEC Prothromb Time International Ratio 1.0 RATIO Activated Partial Thromboplast Time 22.9 SEC Fibrinogen 293 mg/dL Bedside Sodium 140 MMOL/L Bedside Potassium 4.2 MMOL/L Bedside Chloride 104 MMOL/L Bedside Blood Urea Nitrogen 15 MG/DL Bedside Creatinine 1.3 MG/DL Bedside Glucose 116 MG/DL Total Creatine Kinase 54 U/L 38 U/L Troponin I LESS THAN 0.02 NG/ML LESS THAN 0.02 NG/ML LESS THAN 0.02 NG/ML Urine Color LIGHT-YELLOW Urine Turbidity CLEAR Urine pH 7.5 Urine Specific [place] 1.018 Urine Protein NEG mg/dL Urine Glucose (UA) NEG mg/dL Urine Ketones NEG mg/dL Urine Occult Blood NEG Urine Nitrite NEG Urine Bilirubin NEG Urine Urobilinogen LESS THAN 2.0 MG/DL Urine Leukocyte Esterase MOD Urine RBC LESS THAN 1 /hpf Urine WBC 16 /hpf Microscopic Urinalysis Comment CULTURE INDICATED Urine Opiates Screen NEG Urine Barbiturates Screen NEG Urine Amphetamines Screen NEG Urine Benzodiazepines Screen NEG Urine Cocaine Screen NEG Urine Cannabinoids Screen NEG Erythrocyte Sedimentation Rate 11 mm/hr Aspartate Amino Transf (AST/SGOT) 19 U/L Alanine Aminotransferase (ALT/SGPT) 22 U/L Triglycerides Level 132 MG/DL Cholesterol Level 138 MG/DL LDL Cholesterol 53 MG/DL HDL Cholesterol 58.6 MG/DL Cholesterol/HDL Ratio 2.35 RATIO Vitamin B12 Level 678 PG/ML Free Thyroxine 1.00 NG/DL Thyroid Stimulating Hormone 3rd Gen 3.020 uIU/ML Test 07/29/17 22:15 07/30/17 04:20 Hemoglobin A1c 5.4 % Total Creatine Kinase 48 U/L Troponin I LESS THAN 0.02 NG/ML Triglycerides Level 127 MG/DL Cholesterol Level 144 MG/DL LDL Cholesterol 62 MG/DL HDL Cholesterol 56.6 MG/DL Cholesterol/HDL Ratio 2.54 RATIO Imaging Last Impressions Brain MRI 07/29/17 1236 Signed Impressions: Service Date/Time: Saturday, July 29, 2017 16:26 - CONCLUSION: 1. Cerebral white matter disease with scattered T2 hyperintensities characteristic of chronic microvascular ischemic changes. 2. No evidence of acute infarct, hemorrhage, mass or edema. Robert Trevizo MD Neck CTA 07/29/17 0154 Signed Impressions: Service Date/Time: Saturday, July 29, 2017 12:13 - CONCLUSION: Normal vascular anatomy without evidence of stenosis, dissection significant luminal narrowing. Extensive degenerative changes are identified within the cervical spine. The lungs are significant for a noncalcified nodule identified within the left upper lobe measuring 4 mm. Misty Elise MD Head CTA 07/29/17 1151 Signed Impressions: Service Date/Time: Saturday, July 29, 2017 12:13 - CONCLUSION: No evidence of aneurysm, dissection or stenosis. No significant luminal narrowing.. Misty Elise MD Head CT 07/29/17 0000 Signed Impressions: Service Date/Time: Saturday, July 29, 2017 12:05 - CONCLUSION: Normal examination. Misty Elise MD Objective Remarks GENERAL: Awake and alert talkative and cooperative somewhat rigid SKIN: Warm and dry. HEAD: Atraumatic. Normocephalic. EYES: Pupils equal and round. No scleral icterus. No injection or drainage. Extraocular muscles intact ENT: No nasal bleeding or discharge. Mucous membranes pink and moist. Tongue is midline NECK: Trachea midline. No JVD. Supple CARDIOVASCULAR: Regular rate and rhythm. S1-S2 no S3 or S4 RESPIRATORY: No accessory muscle use. Clear to auscultation. Breath sounds equal bilaterally. GASTROINTESTINAL: Abdomen soft, non-tender, nondistended. Hepatic and splenic margins not palpable. MUSCULOSKELETAL: Extremities without clubbing, cyanosis, or edema. No obvious deformities. NEUROLOGICAL: Awake and alert. No obvious cranial nerve deficits. Motor grossly within normal limits. 4 out of 5 muscle strength in the arms and legs. Normal speech. Rigid movement for a Parkinson's patient with rigid movements PSYCHIATRIC: Appropriate mood and affect; insight and judgment normal. Medications and IVs Current Medications Iohexol (Omnipaque 350 Inj) 85 ml STK-MED ONCE IVCONTRAST Last administered on 07/29/17at 12:28; Start 07/29/17 at 12:28; Stop 07/29/17 at 12:29; Status DC Aspirin (Aspirin) 325 mg ONCE ONCE PO Last administered on 07/29/17at 12:45; Start 07/29/17 at 12:45; Stop 07/29/17 at 12:46; Status DC Nicardipine HCl 25 mg/Sodium Chloride 250 ml @ 50 mls/hr TITRATE PRN IV Blood pressure management Last administered on 07/29/17at 13:10; Start 07/29/17 at 12:45 ; Stop 07/29/17 at 15:29; Status DC Clopidogrel Bisulfate (Plavix) 75 mg DAILY PO Last administered on 07/30/17at 10: 01; Start 07/29/17 at 12:45 Aspirin (Ecotrin Ec) 325 mg DAILY PO Last administered on 07/30/17at 10:03; Start 07/29/17 at 12:45 Sodium Chloride 1,000 ml @ 75 mls/hr [id number] IV Last administered on 07/30/17at 05:57; Start 07/29/17 at 12:36 Insulin Aspart (NovoLOG SUPPLEMENTAL SCALE) 1 ACHS SQ ; Start 07/29/17 at 17:00 Dextrose (D50w (Vial) Inj) 50 ml UNSCH PRN IV PUSH HYPOGLYCEMIA-SEE COMMENTS; Start 07/29/17 at 13:15 Glucagon (Glucagon Inj) 1 mg UNSCH PRN OTHER HYPOGLYCEMIA-SEE COMMENTS; Start 07/29/17 at 13:15 Metoprolol Tartrate (Lopressor) 25 mg ONCE ONCE PO Last administered on at 17:17; Start 07/29/17 at 15:30; Stop 07/29/17 at 15:31; Status DC Enalaprilat (Vasotec Inj) 1.25 mg Q6H PRN IV PUSH SBP> OR = 180, DBP> OR = 100 Last administered on 07/30/17at 03:14; Start 07/29/17 at 15:30 Metoprolol Tartrate (Lopressor) 50 mg Q12HR PO ; Start 07/29/17 at 21:00; Stop at 21:00; Status DC Gadodiamide (Omniscan Pf Inj) 16 ml STK-MED ONCE IVCONTRAST Last administered on 07/29/17at 16:42; Start 07/29/17 at 16:42; Stop 07/29/17 at 16:43; Status DC Metoprolol Tartrate (Lopressor) 25 mg Q12HR PO Last administered on 07/30/17at 10 :02; Start 07/29/17 at 21:00 Amlodipine Besylate (Norvasc) 5 mg DAILY PO Last administered on 07/30/17at 10:01 ; Start 07/30/17 at 09:00 Clonidine (Catapres) 0.1 mg ONCE ONCE PO Last administered on 07/29/17at 21:41; Start 07/29/17 at 21:15; Stop 07/29/17 at 21:16; Status DC Hydralazine HCl (Apresoline Inj) 10 mg ONCE ONCE IV PUSH Last administered on 07/30/17at 05:55; Start 07/30/17 at 05:45; Stop 07/30/17 at 05:52; Status DC Aspirin (Aspirin Chew) 81 mg DAILY CHEW ; Start 07/30/17 at 09:00; Stop 07/30/17 at 09:00; Status DC Atorvastatin Calcium (Lipitor) 20 mg HS PO ; Start 07/30/17 at 21:00 Carbidopa/Levodopa (Sinemet 25-100 Mg) 1 tab Q8HR PO ; Start 07/30/17 at 14:00 Clopidogrel Bisulfate (Plavix) 75 mg DAILY PO ; Start 07/30/17 at 09:00; Stop 07/30/17 at 09:18; Status DC Metoprolol Tartrate (Lopressor) 25 mg BID PO ; Start 07/30/17 at 09:00; Stop 07/30 at 09:19; Status DC Venlafaxine HCl (Effexor) 150 mg DAILY PO Last administered on 07/30/17at 10:01; Start 07/30/17 at 09:00 Tamsulosin HCl (Flomax) 0.4 mg DAILY PO ; Start 07/30/17 at 10:00 Non-Formulary Medication 145 mcg DAILY PO ; Start 07/30/17 at 09:00; Status UNV Famotidine (Pepcid) 20 mg BID PO Last administered on 07/30/17at 10:56; Start 07/30/17 at 09:30 A/P Problem List: (1) TIA (transient ischemic attack) ICD Code: G45.9 - Transient cerebral ischemic attack, unspecified (2) Accelerated hypertension ICD Code: I10 - Essential (primary) hypertension Status: Acute Assessment and Plan 1. TIA: Patient developed numbness in his hands, slurred speech, and left facial droop. Symptoms have resolved. Imaging is unremarkable. Appreciate neurology recommendations. Patient was not a candidate to receive TPA. Continue Plavix. Echocardiogram, Holter monitor ordered. Aspirin increased to 325 mg daily. Cardiology consulted. 2. Hypertensive urgency: Blood pressure significantly elevated. Patient was placed on nicardipine drip initially. Will transition him off of the nicardipine and increase oral beta-cherie. Vasotec IV as needed. 3. Coronary artery disease: No chest pain. Check serial cardiac enzymes. Patient's states that he is due to have another stent placed when he returns to [place]. Consult cardiology for further recommendations. Having orthostatic hypotension on quick movements Doubt true TIA suspect secondary to his Parkinson syndrome Parkinson's syndrome advanced with acute orthostatic hypotension and symptomatic Continue on fluids Monitor on floor IV fluids 4. DVT prophylaxis: SHARI Freitas. Discharge Planning Pending improvement of orthostasis Discussed with patient and RN and family Mynor Goddard DO Jul 30, 2017 15:01
--- NOTE | 2017-07-30 15:18 | EKG ---
Date Performed: 07/29/2017 Time Performed: 12:36:35 PTAGE: 72 years EKG: SINUS BRADYCARDIA WITH WANDERING ATRIAL PACEMAKER NONSPECIFIC ST & T-WAVE ABNORMALITY ABNOR MAL RHYTHM ECG NO PREVIOUS TRACING DOCTOR: Reed Moreno Interpretating Date/Time 07/30/2017 15:17:40
--- NOTE | 2017-07-30 15:19 | EKG ---
Date Performed: 07/29/2017 Time Performed: 17:15:28 PTAGE: 72 years EKG: SINUS BRADYCARDIA WITH WANDERING ATRIAL PACEMAKER NONSPECIFIC ST & T-WAVE ABNORMALITY Scot red to previous tracing, no significant change ABNORMAL RHYTHM ECG PREVIOUS TRACING : 07/29/2017 12.36 DOCTOR: Reed Moreno Interpretating Date/Time 07/30/2017 15:18:21
[2017-07-30] MEDS: CARBIDOPA/LEVODOPA 25 MG/100 MG TAB PO SCH ×2 (15:20→21:12)
--- NOTE | 2017-07-30 15:21 | EKG ---
Date Performed: 07/30/2017 Time Performed: 11:02:21 PTAGE: 72 years EKG: Sinus rhythm WITH WANDERING ATRIAL PACEMAKER NONSPECIFIC ST & T-WAVE ABNORMALITY Since the previous tracing, no s ignificant change noted BORDERLINE ECG PREVIOUS TRACING : 07/29/2017 22.10 DOCTOR: Reed Moreno Interpretating Date/Time 07/30/2017 15:20:14
--- NOTE | 2017-07-30 15:21 | EKG ---
Date Performed: 07/29/2017 Time Performed: 22:10:50 PTAGE: 72 years EKG: SINUS BRADYCARDIA WITH WANDERING ATRIAL PACEMAKER NONSPECIFIC ST-T WAVE CHANGE Since the pr evious tracing, no significant change noted BORDERLINE ECG PREVIOUS TRACING : 07/29/17 @ 1715 DOCTOR: Reed Moreno Interpretating Date/Time 07/30/2017 15:19:28
--- NOTE | 2017-07-30 15:28 | RADRPT ---
EXAM DATE/TIME: 07/30/2017 14:57 [facility] COMPARISON: No previous studies available for comparison. INDICATIONS : CVA. MEDICAL HISTORY : Parkinson's. Hypertension. SURGICAL HISTORY : Coronary artery stent. ENCOUNTER: Initial ACUITY: 2 day PAIN SCORE: 0/10 LOCATION: cranial TECHNIQUE: Multiplanar, multisequence MRI of the brain was performed without contrast. FINDINGS: There are moderate changes of chronic ischemic demyelination in the periventricular white matter. No recent infarct is identified on the diffusion weighted images. No mass effect or midline shift. No hydrocephalus. No abnormal extra-axial fluid collections present. CONCLUSION: 1. Mild to moderate chronic ischemic changes in the white matter. No acute findings. No recent infarc t. Chiki Dill MD on July 30, 2017 at 15:23 Board Certified Radiologist. This report was verified electronically.
--- NOTE | 2017-07-30 16:57 | OTSOAPIP ---
TIME SESSION COMPLETED: PM TREATMENT TIME: 0 MINS. CHART REVIEWED. INTERDISCIPLINARY COMMUNICATION: ATTEMPTED TO SEE PATIENT HOWEVER PATIENT WAS BEING PREPARED TO BE TRANSFER TO A DIFFERENT UNIT. PLAN: WILL SEE PATIENT NEXT TREATMENT DAY Therapist: SHIMA AYALA/Akbar Signature on file
[2017-07-30] MEDS: ATORVASTATIN 20 MG TAB PO SCH (21:12)
[2017-07-31] VITALS (26 sets, daily range): BP systolic 107–180; BP diastolic 55–97; PULSE 58–94; RESP 16–18; TEMP 97.7–97.8; O2SAT 96–99
[2017-07-31] MEDS: CARBIDOPA/LEVODOPA 25 MG/100 MG TAB PO SCH ×3 (05:25→21:50)
[2017-07-31 06:50] LABS: AUTOMATED NEUTROPHIL # 5.5 TH/MM3 (1.8-7.7); BASOPHIL % 0.2 % (0.0-2.0); EOSINOPHIL # 0.2 TH/MM3 (0-0.4); EOSINOPHIL % 2.2 % (0.0-4.0); HEMATOCRIT 37.8 % (39.0-51.0); HEMOGLOBIN 13.1 GM/DL (13.0-17.0); LYMPH % 21.9 % (9.0-44.0); LYMPHOCYTE # 1.8 TH/MM3 (1.0-4.8); MEAN CELL VOLUME 88.9 FL (80.0-100.0); MEAN CORPUSCULAR HEMOGLOBIN 30.8 PG (27.0-34.0); MEAN CORPUSCULAR HGB CONC 34.6 % (32.0-36.0); MEAN PLATELET VOLUME 7.5 FL (7.0-11.0); MONO % 7.6 % (0.0-8.0); MONOCYTE # 0.6 TH/MM3 (0-0.9); NEUT % 68.1 % (16.0-70.0); PLATELET COUNT 190 TH/MM3 (150-450); RED BLOOD COUNT 4.25 MIL/MM3 (4.50-5.90); RED CELL DISTRIBUTION WIDTH 13.9 % (11.6-17.2)
[2017-07-31 07:07] LABS: ALBUMIN 3.3 GM/DL (3.4-5.0); AST (GOT) 14 U/L (15-37); BICARBONATE 25.4 MEQ/L (21.0-32.0); BLOOD UREA NITROGEN 11 MG/DL (7-18); CALCIUM 8.1 MG/DL (8.5-10.1); CHLORIDE 110 MEQ/L (98-107); CREATININE 0.94 MG/DL (0.60-1.30); GLOMERULAR FILTRATION RATE 79 ML/MIN (>89); GLUCOSE,RANDOM 103 MG/DL (74-106); MAGNESIUM 2.2 MG/DL (1.5-2.5); SODIUM (NA) 145 MEQ/L (136-145)
[2017-07-31 07:16] LABS: ALKALINE PHOSPHATASE 85 U/L (45-117); ALT (GPT) 8 U/L (12-78); FREE T4 0.99 NG/DL (0.76-1.46); PHOSPHORUS 2.1 MG/DL (2.5-4.9); TOTAL BILIRUBIN ADULT 0.7 MG/DL (0.2-1.0); TOTAL PROTEIN 6.5 GM/DL (6.4-8.2)
--- NOTE | 2017-07-31 07:38 | HHI.PR ---
Subjective Remarks sb several episodes of OH yest with some lue sx near syncope Objective Vital Signs Date Time Temp Pulse Resp B/P (MAP) Pulse Ox O2 Delivery O2 Flow Rate FiO2 07/31/17 06:00 68 07/31/17 05:00 62 07/31/17 04:00 60 07/31/17 03:30 61 16 134/75 (94) 96 07/31/17 03:00 59 07/31/17 02:00 60 07/31/17 01:00 58 07/31/17 00:00 58 07/31/17 00:00 62 16 140/75 (96) 97 07/30/17 23:00 56 07/30/17 22:00 54 07/30/17 21:00 56 07/30/17 20:00 62 07/30/17 20:00 97.8 59 16 127/72 (90) 100 07/30/17 19:00 57 07/30/17 18:15 58 07/30/17 17:13 52 07/30/17 16:04 56 07/30/17 15:58 57 07/30/17 15:58 97.5 54 16 120/60 (80) 99 07/30/17 15:21 07/30/17 13:21 62 158/88 (111) 64 99/58 (72) 62 147/92 (110) 07/30/17 13:00 56 17 117/57 (77) 07/30/17 08:44 61 161/73 (102) I/O 07/30/17 07/30/17 07/30/17 07/31/17 07/31/17 07/31/17 07:00 15:00 23:00 07:00 15:00 23:00 Intake Total 120 ml 1240 ml Output Total 700 ml Balance 120 ml 540 ml Intake Oral 120 ml 240 ml IV Total 1000 ml Output Urine Total 700 ml # Bowel Movements 0 0 Result Diagram: 07/31/17 0557 07/31/17 05 Objective Remarks speech clear now vff face sym 5/5 clumsy bilat left hand tremor some dyskinesia lue this am Assessment and Plan Assessment and Plan imp PD i wonder if just a bad PD day with speech change however that does not account for the left hand tingle if echo neg could dc on asa 325 and plavix and need fu with cards and neuro up [facility] here ctax2 nl and mri neg labs all ok ldl nl check standing bp needs bp lower now too high can run to 120/70 07/31/17 he has some OH mattley needs to lower some bp med ? beta cherie with low hr keep checking standing bp repeat mri yest neg with spell and eeg neg ctax2 nl echo and holter still pend i think low bp here and brings out left sided PD sx Branden Martin MD Jul 31, 2017 07:38
[2017-07-31] MEDS: INSULIN ASPART SUPPLEMENTAL SCALE SQ SCH ×4 (08:00→21:56)
--- NOTE | 2017-07-31 08:21 | MG ---
cc: Branden Martin MD ELECTROENCEPHALOGRAM NUMBER: [id number]. DIAGNOSIS: Parkinson's disease, left arm weakness, near syncope. DESCRIPTION: Recording shows diffuse alpha and beta rhythms, including overall synchronous and symmetric. A lot of left temporal muscle artifact is seen and then some bitemporal muscle artifact. Photic stimulation is performed without significant posterior driving. Hyperventilation is not performed. IMPRESSION: Normal awake EEG. No evidence for focal or diffuse abnormality. MD ROXANA Hernandez/KALPANA , 09:12 PM , 09:35 PM
[2017-07-31] MEDS: METOPROLOL TARTRATE 25 MG TAB PO SCH ×2 (09:00→21:50)
[2017-07-31] MEDS ORDERED: PT:LINZESS 145 MCG PO SCH (09:00)
[2017-07-31] MEDS: TAMSULOSIN HCL 0.4 MG CAP PO SCH ×2 (09:00→09:17)
[2017-07-31] MEDS: VENLAFAXINE HCL 25 MG TAB PO SCH (09:00)
[2017-07-31] MEDS: amLODIPine BESYLATE 5 MG TAB PO SCH (09:17)
[2017-07-31] MEDS: CLOPIDOGREL 75 MG TAB PO SCH (09:17)
[2017-07-31] MEDS: FAMOTIDINE 20 MG TAB PO SCH ×2 (09:17→21:51)
[2017-07-31] MEDS: ASPIRIN EC 325 MG TABEC PO SCH (09:17)
[2017-07-31] MEDS: SODIUM CHLOR 0.9% 1000 ML INJ 1,000 ML IV SCH (10:26)
--- NOTE | 2017-07-31 12:55 | HHI.PR ---
Subjective Remarks The patient is a 72-year-old male with history of TIA who presented to the emergency department with complaint of numbness in his hands that started this morning. He also had some difficulty speaking. His states that his speech was slurred and he had left-sided facial droop. He reported weakness on his left side. Symptoms have essentially resolved at this point. Denies headache or vision changes. Denies chest pain or dyspnea. 07-30 patient has been seen by cardiology and neurology. Patient is having blatant orthostasis Discussed with RN and patient and family and Patient is going for a stat MRI due to symptoms that appear to sound more like orthostasis and hypotension, than actual stroke or TIA, similar symptoms from his Parkinson's Patient will need event monitor when he goes back to [place] Echo is pending We will more than likely be cleared by neurology but will hold him today due to his hypotension and orthostasis 07-31 WILL START ON MIDODRINE 5MG PO TID DW RN AND PATIENT AND FAMILY DW WITH [facility] AM LABS CLEARED BY NEUROLOGY STILL HAD SOME ORTHOSTASIS WANTS NOTE FOR AIRLINE Objective Vitals Vital Signs Date Time Temp Pulse Resp B/P (MAP) Pulse Ox O2 Delivery O2 Flow Rate FiO2 07/31/17 12:28 76 07/31/17 11:36 74 07/31/17 11:36 97.8 74 18 177/88 (117) 99 146/77 (100) 138/71 (93) 07/31/17 10:22 68 07/31/17 09:35 66 07/31/17 08:47 64 07/31/17 07:59 97.7 60 18 180/97 (124) 97 110/63 (79) 107/55 (72) 07/31/17 07:59 60 07/31/17 06:00 68 07/31/17 05:00 62 07/31/17 04:00 60 07/31/17 03:30 61 16 134/75 (94) 96 07/31/17 03:00 59 07/31/17 02:00 60 07/31/17 01:00 58 07/31/17 00:00 58 07/31/17 00:00 62 16 140/75 (96) 97 07/30/17 23:00 56 07/30/17 22:00 54 07/30/17 21:00 56 07/30/17 20:00 62 07/30/17 20:00 97.8 59 16 127/72 (90) 100 07/30/17 19:00 57 07/30/17 18:15 58 07/30/17 17:13 52 07/30/17 16:04 56 07/30/17 15:58 57 07/30/17 15:58 97.5 54 16 120/60 (80) 99 07/30/17 15:21 07/30/17 13:21 62 158/88 (111) 64 99/58 (72) 62 147/92 (110) 07/30/17 13:00 56 17 117/57 (77) I/O 07/30/17 07/30/17 07/30/17 07/31/17 07/31/17 07/31/17 06:59 14:59 22:59 06:59 14:59 22:59 Intake Total 120 ml 1240 ml Output Total 700 ml Balance 120 ml 540 ml Intake Oral 120 ml 240 ml IV Total 1000 ml Output Urine Total 700 ml # Bowel Movements 0 0 Result Diagram: 07/31/17 0557 07/31/17 0557 Other Results Laboratory Tests Test 07/29/17 11:55 07/29/17 12:25 07/29/17 15:28 07/29/17 16:00 White Blood Count 6.6 TH/MM3 Red Blood Count 4.58 MIL/MM3 Hemoglobin 14.2 GM/DL Bedside Hemoglobin 12.9 G/DL Hematocrit 41.2 % Bedside Hematocrit 38.0 % Mean Corpuscular Volume 90.0 FL Mean Corpuscular Hemoglobin 31.1 PG Mean Corpuscular Hemoglobin Concent 34.5 % Red Cell Distribution Width 13.5 % Platelet Count 213 TH/MM3 Mean Platelet Volume 7.5 FL Neutrophils (%) (Auto) 60.3 % Lymphocytes (%) (Auto) 29.9 % Monocytes (%) (Auto) 7.4 % Eosinophils (%) (Auto) 2.0 % Basophils (%) (Auto) 0.4 % Neutrophils # (Auto) 4.0 TH/MM3 Lymphocytes # (Auto) 2.0 TH/MM3 Monocytes # (Auto) 0.5 TH/MM3 Eosinophils # (Auto) 0.1 TH/MM3 Basophils # (Auto) 0.0 TH/MM3 CBC Comment DIFF FINAL Differential Comment Prothrombin Time 10.4 SEC Prothromb Time International Ratio 1.0 RATIO Activated Partial Thromboplast Time 22.9 SEC Fibrinogen 293 mg/dL Bedside Sodium 140 MMOL/L Bedside Potassium 4.2 MMOL/L Bedside Chloride 104 MMOL/L Bedside Blood Urea Nitrogen 15 MG/DL Bedside Creatinine 1.3 MG/DL Bedside Glucose 116 MG/DL Total Creatine Kinase 54 U/L 38 U/L Troponin I LESS THAN 0.02 NG/ML LESS THAN 0.02 NG/ML LESS THAN 0.02 NG/ML Urine Color LIGHT-YELLOW Urine Turbidity CLEAR Urine pH 7.5 Urine Specific [place] 1.018 Urine Protein NEG mg/dL Urine Glucose (UA) NEG mg/dL Urine Ketones NEG mg/dL Urine Occult Blood NEG Urine Nitrite NEG Urine Bilirubin NEG Urine Urobilinogen LESS THAN 2.0 MG/DL Urine Leukocyte Esterase MOD Urine RBC LESS THAN 1 /hpf Urine WBC 16 /hpf Microscopic Urinalysis Comment CULTURE INDICATED Urine Opiates Screen NEG Urine Barbiturates Screen NEG Urine Amphetamines Screen NEG Urine Benzodiazepines Screen NEG Urine Cocaine Screen NEG Urine Cannabinoids Screen NEG Erythrocyte Sedimentation Rate 11 mm/hr Aspartate Amino Transf (AST/SGOT) 19 U/L Alanine Aminotransferase (ALT/SGPT) 22 U/L Triglycerides Level 132 MG/DL Cholesterol Level 138 MG/DL LDL Cholesterol 53 MG/DL HDL Cholesterol 58.6 MG/DL Cholesterol/HDL Ratio 2.35 RATIO Vitamin B12 Level 678 PG/ML Free Thyroxine 1.00 NG/DL Thyroid Stimulating Hormone 3rd Gen 3.020 uIU/ML Rapid Plasma Reagin NON-REACTIVE Test 07/29/17 22:15 07/30/17 04:20 07/30/17 21:48 07/31/17 05:57 Hemoglobin A1c 5.4 % Total Creatine Kinase 48 U/L Troponin I LESS THAN 0.02 NG/ML 0.02 NG/ML Triglycerides Level 127 MG/DL Cholesterol Level 144 MG/DL LDL Cholesterol 62 MG/DL HDL Cholesterol 56.6 MG/DL Cholesterol/HDL Ratio 2.54 RATIO White Blood Count 8.0 TH/MM3 Red Blood Count 4.25 MIL/MM3 Hemoglobin 13.1 GM/DL Hematocrit 37.8 % Mean Corpuscular Volume 88.9 FL Mean Corpuscular Hemoglobin 30.8 PG Mean Corpuscular Hemoglobin Concent 34.6 % Red Cell Distribution Width 13.9 % Platelet Count 190 TH/MM3 Mean Platelet Volume 7.5 FL Neutrophils (%) (Auto) 68.1 % Lymphocytes (%) (Auto) 21.9 % Monocytes (%) (Auto) 7.6 % Eosinophils (%) (Auto) 2.2 % Basophils (%) (Auto) 0.2 % Neutrophils # (Auto) 5.5 TH/MM3 Lymphocytes # (Auto) 1.8 TH/MM3 Monocytes # (Auto) 0.6 TH/MM3 Eosinophils # (Auto) 0.2 TH/MM3 Basophils # (Auto) 0.0 TH/MM3 CBC Comment DIFF FINAL Differential Comment Blood Urea Nitrogen 11 MG/DL Creatinine 0.94 MG/DL Random Glucose 103 MG/DL Total Protein 6.5 GM/DL Albumin 3.3 GM/DL Calcium Level 8.1 MG/DL Phosphorus Level 2.1 MG/DL Magnesium Level 2.2 MG/DL Alkaline Phosphatase 85 U/L Aspartate Amino Transf (AST/SGOT) 14 U/L Alanine Aminotransferase (ALT/SGPT) 8 U/L Total Bilirubin 0.7 MG/DL Sodium Level 145 MEQ/L Potassium Level 3.3 MEQ/L Chloride Level 110 MEQ/L Carbon Dioxide Level 25.4 MEQ/L Anion Gap 10 MEQ/L Estimat Glomerular Filtration Rate 79 ML/MIN Free Thyroxine 0.99 NG/DL Thyroid Stimulating Hormone 3rd Gen 3.810 uIU/ML Imaging Last Impressions Brain MRI 07/30/17 0000 Signed Impressions: Service Date/Time: Sunday, July 30, 2017 14:57 - CONCLUSION: 1. Mild to moderate chronic ischemic changes in the white matter. No acute findings. No recent infarct. Chiki Dill MD Neck CTA 07/29/17 115 Signed Impressions: Service Date/Time: Saturday, July 29, 2017 12:13 - CONCLUSION: Normal vascular anatomy without evidence of stenosis, dissection significant luminal narrowing. Extensive degenerative changes are identified within the cervical spine. The lungs are significant for a noncalcified nodule identified within the left upper lobe measuring 4 mm. Misty Elise MD Head CTA 07/29/17 1151 Signed Impressions: Service Date/Time: Saturday, July 29, 2017 12:13 - CONCLUSION: No evidence of aneurysm, dissection or stenosis. No significant luminal narrowing.. Misty Elise MD Head CT 07/29/17 0000 Signed Impressions: Service Date/Time: Saturday, July 29, 2017 12:05 - CONCLUSION: Normal examination. Misty Elise MD Objective Remarks GENERAL: Awake and alert talkative and cooperative somewhat rigid SKIN: Warm and dry. HEAD: Atraumatic. Normocephalic. EYES: Pupils equal and round. No scleral icterus. No injection or drainage. Extraocular muscles intact ENT: No nasal bleeding or discharge. Mucous membranes pink and moist. Tongue is midline NECK: Trachea midline. No JVD. Supple CARDIOVASCULAR: Regular rate and rhythm. S1-S2 no S3 or S4 RESPIRATORY: No accessory muscle use. Clear to auscultation. Breath sounds equal bilaterally. GASTROINTESTINAL: Abdomen soft, non-tender, nondistended. Hepatic and splenic margins not palpable. MUSCULOSKELETAL: Extremities without clubbing, cyanosis, or edema. No obvious deformities. NEUROLOGICAL: Awake and alert. No obvious cranial nerve deficits. Motor grossly within normal limits. 4 out of 5 muscle strength in the arms and legs. Normal speech. Rigid movement for a Parkinson's patient with rigid movements PSYCHIATRIC: Appropriate mood and affect; insight and judgment normal. Medications and IVs Current Medications Iohexol (Omnipaque 350 Inj) 85 ml STK-MED ONCE IVCONTRAST Last administered on 07/29/17 12:28; Start 07/29/17 at 12:28; Stop 07/29/17 at 12:29; Status DC Aspirin (Aspirin) 325 mg ONCE ONCE PO Last administered on 07/29/17 12:45; Start 07/29/17 at 12:45; Stop 07/29/17 at 12:46; Status DC Nicardipine HCl 25 mg/Sodium Chloride 250 ml @ 50 mls/hr TITRATE PRN IV Blood pressure management Last administered on 07/29/17 13:10; Start 07/29/17 at 12:45 ; Stop 07/29/17 at 15:29; Status DC Clopidogrel Bisulfate (Plavix) 75 mg DAILY PO Last administered on 07/31/17 09: 17; Start 07/29/17 at 12:45 Aspirin (Ecotrin Ec) 325 mg DAILY PO Last administered on 07/31/17 09:17; Start 07/29/17 at 12:45 Sodium Chloride 1,000 ml @ 100 mls/hr Q10H IV Last administered on 4/9/18at 10 :26; Start 07/29/17 at 12:36 Insulin Aspart (NovoLOG SUPPLEMENTAL SCALE) 1 ACHS SQ Last administered on at 17:00; Start 07/29/17 at 17:00 Dextrose (D50w (Vial) Inj) 50 ml UNSCH PRN IV PUSH HYPOGLYCEMIA-SEE COMMENTS; Start 07/29/17 at 13:15 Glucagon (Glucagon Inj) 1 mg UNSCH PRN OTHER HYPOGLYCEMIA-SEE COMMENTS; Start 07/29/17 at 13:15 Metoprolol Tartrate (Lopressor) 25 mg ONCE ONCE PO Last administered on at 17:17; Start 07/29/17 at 15:30; Stop 07/29/17 at 15:31; Status DC Enalaprilat (Vasotec Inj) 1.25 mg Q6H PRN IV PUSH SBP> OR = 180, DBP> OR = 100 Last administered on 07/30/17at 03:14; Start 07/29/17 at 15:30 Metoprolol Tartrate (Lopressor) 50 mg Q12HR PO ; Start 07/29/17 at 21:00; Stop at 21:00; Status DC Gadodiamide (Omniscan Pf Inj) 16 ml STK-MED ONCE IVCONTRAST Last administered on 07/29/17at 16:42; Start 07/29/17 at 16:42; Stop 07/29/17 at 16:43; Status DC Metoprolol Tartrate (Lopressor) 25 mg Q12HR PO Last administered on 07/30/17at 10 :02; Start 07/29/17 at 21:00 Amlodipine Besylate (Norvasc) 5 mg DAILY PO Last administered on 07/31/17at 09:17 ; Start 07/30/17 at 09:00 Clonidine (Catapres) 0.1 mg ONCE ONCE PO Last administered on 07/29/17at 21:41; Start 07/29/17 at 21:15; Stop 07/29/17 at 21:16; Status DC Hydralazine HCl (Apresoline Inj) 10 mg ONCE ONCE IV PUSH Last administered on 07/30/17at 05:55; Start 07/30/17 at 05:45; Stop 07/30/17 at 05:52; Status DC Aspirin (Aspirin Chew) 81 mg DAILY CHEW ; Start 07/30/17 at 09:00; Stop 07/30/17 at 09:00; Status DC Atorvastatin Calcium (Lipitor) 20 mg HS PO Last administered on 07/30/17at 21:12 ; Start 07/30/17 at 21:00 Carbidopa/Levodopa (Sinemet 25-100 Mg) 1 tab Q8HR PO Last administered on at 05:25; Start 07/30/17 at 14:00 Clopidogrel Bisulfate (Plavix) 75 mg DAILY PO ; Start 07/30/17 at 09:00; Stop 07/30/17 at 09:18; Status DC Metoprolol Tartrate (Lopressor) 25 mg BID PO ; Start 07/30/17 at 09:00; Stop 07/30 at 09:19; Status DC Venlafaxine HCl (Effexor) 150 mg DAILY PO Last administered on 07/31/17at 09:00; Start 07/30/17 at 09:00 Tamsulosin HCl (Flomax) 0.4 mg DAILY PO ; Start 07/30/17 at 10:00 Non-Formulary Medication 145 mcg DAILY PO ; Start 07/30/17 at 09:00; Status UNV Famotidine (Pepcid) 20 mg BID PO Last administered on 07/31/17at 09:17; Start 07/30/17 at 09:30 Patient Own Medication PT OWN MED: LINZ... DAILY PO ; Start 07/31/17 at 09:00; Status Future Hold Midodrine (Proamatine) 5 mg TID@07,12,17 PO ; Start 07/31/17 at 12:15 A/P Problem List: (1) TIA (transient ischemic attack) ICD Code: G45.9 - Transient cerebral ischemic attack, unspecified (2) Accelerated hypertension ICD Code: I10 - Essential (primary) hypertension Status: Acute Assessment and Plan 1. TIA: Patient developed numbness in his hands, slurred speech, and left facial droop. Symptoms have resolved. Imaging is unremarkable. Appreciate neurology recommendations. Patient was not a candidate to receive TPA. Continue Plavix. Echocardiogram, Holter monitor ordered. Aspirin increased to 325 mg daily. Cardiology consulted. 2. Hypertensive urgency: Blood pressure significantly elevated. Patient was placed on nicardipine drip initially. Will transition him off of the nicardipine and increase oral beta-cherie. Vasotec IV as needed. 3. Coronary artery disease: No chest pain. Check serial cardiac enzymes. Patient's states that he is due to have another stent placed when he returns to [place]. Consult cardiology for further recommendations. Having orthostatic hypotension on quick movements Doubt true TIA suspect secondary to his Parkinson syndrome Parkinson's syndrome advanced with acute orthostatic hypotension and symptomatic Continue on fluids Monitor on floor POSITIVE ORTHOSTASIS- ADD PROAMATINE 5MG TID HYPOKALEMIA WILL REPLACE IV fluids 4. DVT prophylaxis: SHARI Freitas. Discharge Planning Pending improvement of orthostasis Discussed with patient and RN and family Mynor Goddard DO Jul 31, 2017 12:55
[2017-07-31] MEDS: MIDODRINE 5 MG TAB PO SCH ×2 (12:59→17:20)
--- NOTE | 2017-07-31 13:00 | HHI.FF ---
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 My clinical findings support the need for the requested home health care services because: Ltd mobility - disease progression Deconditioned w/ increased weakness I certify that my clinical findings support that this patient is homebound because: Unsteady gait/balance Myonr Goddard DO Jul 31, 2017 12:59
[2017-07-31] MEDS: POTASSIUM CHLOR 20 MEQ PREMIX 100 ML IV SCH ×4 (13:20→19:00)
--- NOTE | 2017-07-31 14:48 | ECHRPT ---
Indication: CVA/TIA CONCLUSIONS The left ventricular systolic function is normal with an estimated ejection fraction in the range of 60-65%. Normal left ventricular size. Wall thickness is normal. No regional wall motion abnormalities are present. The pulmonary valve is not well visualized. BP: 134 / 75 HR: 68 Rhythm: Sinus MEASUREMENTS (Male / Female) Normal Values Technical Quality:Fair 2D ECHO LV Diastolic Diameter PLAX 4.3 cm 4.2 - 5.9 / 3.9 - 5.3 cm LV Systolic Diameter PLAX 3.0 cm IVS Diastolic Thickness 1.0 cm 0.6 - 1.0 / 0.6 - 0.9 cm LVPW Diastolic Thickness 1.0 cm 0.6 - 1.0 / 0.6 - 0.9 cm LV Relative Wall Thickness 0.5 RV Internal Dim ED PLAX 2.5 cm LVOT Diameter 1.9 cm LA Systolic Diameter LX 3.5 cm 3.0 - 4.0 / 2.7 - 3.8 cm LV Ejection Fraction MOD 4C 62.8 % LV Cardiac Index MOD 4C 2112.2 cm/minm LV Ejection Fraction 4C AL 63.4 % LV Cardiac Index 4C AL 2195.5 cm/minm M-MODE Aortic Root Diameter MM 2.8 cm LA Systolic Diameter MM 3.2 cm LA Ao Ratio MM 1.1 AV Cusp Separation MM 1.6 cm DOPPLER AV Peak Velocity 132.0 cm/s AV Peak Gradient 7.0 mmHg LVOT Peak Velocity 106.0 cm/s LVOT Peak Gradient 4.5 mmHg AV Area Cont Eq pk 2.3 cm MV Area PHT 4.2 cm Mitral E Point Velocity 61.7 cm/s Mitral A Point Velocity 111.0 cm/s Mitral E to A Ratio 0.6 LV E' Lateral Velocity 7.9 cm/s Mitral E to LV E' Lateral Ratio 7.8 LV E' Septal Velocity 5.3 cm/s Mitral E to LV E' Septal Ratio 11.7 PV Peak Velocity 110.0 cm/s PV Peak Gradient 4.8 mmHg FINDINGS LEFT VENTRICLE The left ventricular systolic function is normal with an estimated ejection fraction in the range of 60-65%. Normal left ventricular size. Wall thickness is normal. No regional wall motion abnormalities are present. RIGHT VENTRICLE Normal right ventricular size and systolic function. LEFT ATRIUM The left atrial size is normal. RIGHT ATRIUM The right atrial size is normal. ATRIAL SEPTUM Normal atrial septal thickness without atrial level shunting by limited color doppler interrogation. AORTA The aortic root and proximal ascending aorta are normal in size on limited imaging. MITRAL VALVE Mild mitral annular thickening. No mitral valve stenosis or regurgitation. AORTIC VALVE Trileaflet aortic valve. No aortic valve stenosis or regurgitation. TRICUSPID VALVE Structurally normal tricuspid valve. No tricuspid valve stenosis or regurgitation. PULMONARY VALVE The pulmonary valve is not well visualized. VESSELS The inferior vena cava was not well visualized. PERICARDIUM No pericardial effusion. Morris Dos Santos MD (Electronically Signed) Final Date:31 July 2017 14:47
--- NOTE | 2017-07-31 15:43 | PD.CARD.PN ---
Subjective Subjective Remarks No events overnight Feels well Speech back to baseline per Does appear to have orthostatic hypotension Objective Medications Current Medications Medications (Trade) Dose Ordered Sig/Suzie Route Start Time Stop Time Status Last Admin (Plavix) 75 mg DAILY PO 07/29/17 12:45 07/31/17 09:17 (Ecotrin Ec) 325 mg DAILY PO 07/29/17 12:45 07/31/17 09:17 (NovoLOG SUPPLEMENTAL SCALE) 1 ACHS SQ 07/29/17 17:00 07/30/17 17:00 (D50w (Vial) Inj) 50 ml UNSCH PRN IV PUSH 07/29/17 13:15 (Glucagon Inj) 1 mg UNSCH PRN OTHER 07/29/17 13:15 (Vasotec Inj) 1.25 mg Q6H PRN IV PUSH 07/29/17 15:30 07/30/17 03:14 (Lopressor) 25 mg Q12HR PO 07/29/17 21:00 07/30/17 10:02 (Norvasc) 5 mg DAILY PO 07/30/17 09:00 07/31/17 09:17 (Lipitor) 20 mg HS PO 07/30/17 21:00 07/30/17 21:12 (Sinemet 25-100 Mg) 1 tab Q8HR PO 07/30/17 14:00 07/31/17 14:35 (Effexor) 150 mg DAILY PO 07/30/17 09:00 07/31/17 09:00 (Flomax) 0.4 mg DAILY PO 07/30/17 10:00 (Pepcid) 20 mg BID PO 07/30/17 09:30 07/31/17 09:17 Patient Own Medication PT OWN MED: LINZ... DAILY PO 07/31/17 09:00 Future Hold (Proamatine) 5 mg TID@07,12,17 PO 07/31/17 12:15 07/31/17 12:59 Potassium Chloride 100 ml @ 50 mls/hr Q2H IV 07/31/17 13:00 07/31/17 20:59 07/31/17 14:35 Vital Signs / I&O Vital Signs Date Time Temp Pulse Resp B/P (MAP) Pulse Ox O2 Delivery O2 Flow Rate FiO2 07/31/17 14:30 94 07/31/17 13:14 75 07/31/17 12:28 76 07/31/17 11:36 74 07/31/17 11:36 97.8 74 18 177/88 (117) 99 146/77 (100) 138/71 (93) 07/31/17 10:22 68 07/31/17 09:35 66 07/31/17 08:47 64 07/31/17 07:59 97.7 60 18 180/97 (124) 97 110/63 (79) 107/55 (72) 07/31/17 07:59 60 07/31/17 06:00 68 07/31/17 05:00 62 07/31/17 04:00 60 07/31/17 03:30 61 16 134/75 (94) 96 07/31/17 03:00 59 07/31/17 02:00 60 07/31/17 01:00 58 07/31/17 00:00 58 07/31/17 00:00 62 16 140/75 (96) 97 07/30/17 23:00 56 07/30/17 22:00 54 07/30/17 21:00 56 07/30/17 20:00 62 07/30/17 20:00 97.8 59 16 127/72 (90) 100 07/30/17 19:00 57 07/30/17 18:15 58 07/30/17 17:13 52 07/30/17 16:04 56 07/30/17 15:58 57 07/30/17 15:58 97.5 54 16 120/60 (80) 99 I/O 07/30/17 07/30/17 07/30/17 07/31/17 07/31/17 07/31/17 07:00 15:00 23:00 07:00 15:00 23:00 Intake Total 120 ml 1240 ml Output Total 700 ml Balance 120 ml 540 ml Intake Oral 120 ml 240 ml IV Total 1000 ml Output Urine Total 700 ml # Bowel Movements 0 0 Physical Exam GENERAL: NAD, AAOX3 SKIN: Warm and dry. HEAD: Atraumatic. Normocephalic. EYES: Pupils equal and round. No scleral icterus. No injection or drainage. ENT: No nasal bleeding or discharge. Mucous membranes pink and moist. NECK: Trachea midline. No JVD. CARDIOVASCULAR: Regular rate and rhythm. RESPIRATORY: No accessory muscle use. Clear to auscultation. Breath sounds equal bilaterally. GASTROINTESTINAL: Abdomen soft, non-tender, nondistended. Hepatic and splenic margins not palpable. MUSCULOSKELETAL: Extremities without clubbing, cyanosis, or edema. No obvious deformities. NEUROLOGICAL: Awake and alert. No obvious cranial nerve deficits. Motor grossly within normal limits. Five out of 5 muscle strength in the arms and legs. Normal speech. PSYCHIATRIC: Appropriate mood and affect; insight and judgment normal. Laboratory Laboratory Tests Test 07/30/17 21:48 07/31/17 05:57 Troponin I 0.02 NG/ML White Blood Count 8.0 TH/MM3 Red Blood Count 4.25 MIL/MM3 Hemoglobin 13.1 GM/DL Hematocrit 37.8 % Mean Corpuscular Volume 88.9 FL Mean Corpuscular Hemoglobin 30.8 PG Mean Corpuscular Hemoglobin Concent 34.6 % Red Cell Distribution Width 13.9 % Platelet Count 190 TH/MM3 Mean Platelet Volume 7.5 FL Neutrophils (%) (Auto) 68.1 % Lymphocytes (%) (Auto) 21.9 % Monocytes (%) (Auto) 7.6 % Eosinophils (%) (Auto) 2.2 % Basophils (%) (Auto) 0.2 % Neutrophils # (Auto) 5.5 TH/MM3 Lymphocytes # (Auto) 1.8 TH/MM3 Monocytes # (Auto) 0.6 TH/MM3 Eosinophils # (Auto) 0.2 TH/MM3 Basophils # (Auto) 0.0 TH/MM3 CBC Comment DIFF FINAL Differential Comment Blood Urea Nitrogen 11 MG/DL Creatinine 0.94 MG/DL Random Glucose 103 MG/DL Total Protein 6.5 GM/DL Albumin 3.3 GM/DL Calcium Level 8.1 MG/DL Phosphorus Level 2.1 MG/DL Magnesium Level 2.2 MG/DL Alkaline Phosphatase 85 U/L Aspartate Amino Transf (AST/SGOT) 14 U/L Alanine Aminotransferase (ALT/SGPT) 8 U/L Total Bilirubin 0.7 MG/DL Sodium Level 145 MEQ/L Potassium Level 3.3 MEQ/L Chloride Level 110 MEQ/L Carbon Dioxide Level 25.4 MEQ/L Anion Gap 10 MEQ/L Estimat Glomerular Filtration Rate 79 ML/MIN Free Thyroxine 0.99 NG/DL Thyroid Stimulating Hormone 3rd Gen 3.810 uIU/ML Assessment and Plan Problem List: (1) CAD (coronary artery disease) ICD Codes: I25.10 - Atherosclerotic heart disease of [place] coronary artery without angina pectoris (2) Parkinsonism ICD Codes: G20 - Parkinson's disease (3) TIA (transient ischemic attack) ICD Codes: G45.9 - Transient cerebral ischemic attack, unspecified (4) Accelerated hypertension ICD Codes: I10 - Essential (primary) hypertension Status: Acute Assessment and Plan 1) TIA Per neurology 2) CAD Stable, can follow up with cardiology up in [place] Per the , he had 2-3 stents in Feb and is due for another in the near future when they go back Con't ASA/Plavix 3) Syncope Possible due to hypertensive urgency? Patient asymptomatic before the events, no CP/SOB/palpitations Needs senior care rhythm analysis Previously had 30 day monitor at home Recommend either another event monitor or loop recorder once back in [place] 4) HTN Somewhat better controlled today 5) EF 65% 6) Orthostatic hypotension Possible due to Carbidopa/Levodopa and Flomax Started on Midodrine Dusty Connelyl DO Jul 31, 2017 15:43
--- NOTE | 2017-07-31 16:16 | HM ---
Date Performed: 07/30/2017 Time Performed: 11:41:00 HOOKUP DATE: 07/30/17 11:41:00 AM Sun ANALYSIS START TIME: 07/30/2017 11:46:00 AM ANALYSIS END TIME: 07/31/2017 11:50:00 AM PATIENT AGE: 72 PATIENT HEIGHT PATIENT WEIGHT DRUG LIST PATIENT DIAGNOSIS: stroke alert TEST NARRATIVE: The patient's average heart rate was 62 BPM. No episodes of tachycardia wer e noted. Heart rates less than 50 BPM were noted 5% of the time. No pauses exceeding 2.0 seconds were noted. 149 ventricular ectopics, which represented < 1% of the total beat count, were noted . The highest ventricular ectopic frequency occurred from 06:00 AM to 07:00 AM Mon. During this sanya e 18 VE(s) occurred. Ventricular ectopics were observed as 146 isolated beat(s) and as 1 run(s). 3211 supraventricular ectopics, which represented 4% of the total beat count, were noted. The highe st supraventricular ectopic frequency occurred from 01:00 PM to 02:00 PM Sun. During this time 506 S VE(s) occurred. Multiple episodes of ST depression (defined as -1.0 mm or more) were noted in ch josh 1. The maximum depression of -2.8 mm occurred at 01:06:40 PM Sun. Multiple episodes of ST dep ression (defined as -1.0 mm or more) were noted in channel 2. The maximum depression of -3.1 mm occ urred at 10:40:53 AM Mon. Multiple episodes of ST depression (defined as -1.0 mm or more) were note d in channel 3. The maximum depression of -2.2 mm occurred at 01:07:15 PM Sun. TEST INTERPRETATION: Minmum HR 44. Maximum HR 100. Average HR 62. Underlying rhythm is normal si nus. There are short runs of PACs up to 5 beats. There are occasional PVCs noted. Conclusions: PACs, PVCs, short runs of PACs, one 3 beat run of PVCs noted at 0635 at rate of 35 BPM. Signed by : Ekta Campoverde
[2017-07-31 16:22] LABS: HEMOGLOBIN A1C 5.3 % (4.3-6.0)
[2017-07-31] MEDS: ATORVASTATIN 20 MG TAB PO SCH (21:50)
[2017-08-01] VITALS (7 sets, daily range): BP systolic 114–180; BP diastolic 58–95; PULSE 51–60; RESP 16–18; TEMP 97.7–97.9; O2SAT 97–99
[2017-08-01 06:47] LABS: AUTOMATED NEUTROPHIL # 4.6 TH/MM3 (1.8-7.7); BASOPHIL % 0.3 % (0.0-2.0); EOSINOPHIL # 0.3 TH/MM3 (0-0.4); EOSINOPHIL % 4.4 % (0.0-4.0); HEMATOCRIT 39.1 % (39.0-51.0); HEMOGLOBIN 13.7 GM/DL (13.0-17.0); LYMPH % 27.7 % (9.0-44.0); LYMPHOCYTE # 2.2 TH/MM3 (1.0-4.8); MEAN CELL VOLUME 88.9 FL (80.0-100.0); MEAN CORPUSCULAR HEMOGLOBIN 31.2 PG (27.0-34.0); MEAN CORPUSCULAR HGB CONC 35.1 % (32.0-36.0); MEAN PLATELET VOLUME 7.7 FL (7.0-11.0); MONO % 8.5 % (0.0-8.0); MONOCYTE # 0.7 TH/MM3 (0-0.9); NEUT % 59.1 % (16.0-70.0); PLATELET COUNT 184 TH/MM3 (150-450); RED BLOOD COUNT 4.39 MIL/MM3 (4.50-5.90); RED CELL DISTRIBUTION WIDTH 13.9 % (11.6-17.2); WHITE BLOOD COUNT 7.8 TH/MM3 (4.0-11.0)
[2017-08-01 06:59] LABS: ALBUMIN 3.5 GM/DL (3.4-5.0); AST (GOT) 22 U/L (15-37); BICARBONATE 25.5 MEQ/L (21.0-32.0); BLOOD UREA NITROGEN 10 MG/DL (7-18); CALCIUM 8.4 MG/DL (8.5-10.1); CHLORIDE 112 MEQ/L (98-107); CREATININE 0.99 MG/DL (0.60-1.30); GLOMERULAR FILTRATION RATE 74 ML/MIN (>89); GLUCOSE,RANDOM 98 MG/DL (74-106); MAGNESIUM 2.2 MG/DL (1.5-2.5); SODIUM (NA) 144 MEQ/L (136-145)
[2017-08-01 07:06] LABS: ALKALINE PHOSPHATASE 97 U/L (45-117); ALT (GPT) 9 U/L (12-78); PHOSPHORUS 2.7 MG/DL (2.5-4.9); TOTAL BILIRUBIN ADULT 0.5 MG/DL (0.2-1.0); TOTAL PROTEIN 7.1 GM/DL (6.4-8.2)
--- NOTE | 2017-08-01 07:13 | HHI.PR ---
Subjective Remarks sb several episodes of OH yest with some lue sx near syncope ----- 08/01/17 no more left sided spells bp lowes 109/ has 40 pt drop at times to 114/ Objective Vital Signs Date Time Temp Pulse Resp B/P (MAP) Pulse Ox O2 Delivery O2 Flow Rate FiO2 08/01/17 01:36 58 16 129/73 (91) 98 07/31/17 21:28 97 21 07/31/17 18:02 74 07/31/17 17:08 74 07/31/17 16:49 80 07/31/17 15:44 78 07/31/17 15:44 97.7 78 18 178/77 (110) 97 172/75 (107) 138/71 (93) 07/31/17 14:30 94 07/31/17 13:14 75 07/31/17 12:28 76 07/31/17 11:36 74 07/31/17 11:36 97.8 74 18 177/88 (117) 99 146/77 (100) 138/71 (93) 07/31/17 10:22 68 07/31/17 09:35 66 07/31/17 08:47 64 07/31/17 07:59 97.7 60 18 180/97 (124) 97 110/63 (79) 107/55 (72) 07/31/17 07:59 60 I/O 07/31/17 07/31/17 07/31/17 08/01/17 08/01/17 08/01/17 07:00 15:00 23:00 07:00 15:00 23:00 Intake Total 1240 ml 240 ml Output Total 700 ml 1900 ml Balance 540 ml -1660 ml Intake Oral 240 ml 240 ml IV Total 1000 ml Output Urine Total 700 ml 1900 ml # Bowel Movements 0 0 Result Diagram: 08/01/17 0553 08/01/17 0553 Objective Remarks speech clear now vff face sym 5/5 clumsy bilat no left hand tremor some mild scissor gait but steady some confusion overnoc Assessment and Plan Assessment and Plan imp PD i wonder if just a bad PD day with speech change however that does not account for the left hand tingle if echo neg could dc on asa 325 and plavix and need fu with [place] here ctax2 nl and mri neg labs all ok ldl nl check standing bp needs bp lower now too high can run to 120/70 07/31/17 he has some OH likley needs to lower some bp med ? beta cherie with low hr keep checking standing bp repeat mri yest neg with spell and eeg neg ctax2 nl echo and holter still pend i think low bp here and brings out left sided PD sx 08/01/17 no more spells echo and holter nl needs fu with me or his o/p neurologist some autonomic dysfxt ok to dc home before gets too confused on asa and plavix Branden Martin MD Aug 01, 2017 07:13
[2017-08-01] MEDS: INSULIN ASPART SUPPLEMENTAL SCALE SQ SCH ×2 (08:00→12:00)
[2017-08-01] MEDS: VENLAFAXINE HCL 25 MG TAB PO SCH (09:00)
[2017-08-01] MEDS: METOPROLOL TARTRATE 25 MG TAB PO SCH (09:09)
[2017-08-01] MEDS: ASPIRIN EC 325 MG TABEC PO SCH (09:10)
[2017-08-01] MEDS: MIDODRINE 5 MG TAB PO SCH ×2 (09:10→12:00)
[2017-08-01] MEDS: TAMSULOSIN HCL 0.4 MG CAP PO SCH (09:10)
[2017-08-01] MEDS: CLOPIDOGREL 75 MG TAB PO SCH (09:10)
[2017-08-01] MEDS: FAMOTIDINE 20 MG TAB PO SCH (09:11)
[2017-08-01] MEDS: amLODIPine BESYLATE 5 MG TAB PO SCH (09:11)
--- NOTE | 2017-08-01 09:47 | PD.CARD.PN ---
Subjective Subjective Remarks No events overnight Feels well Orthostatic hypotension somewhat better Objective Medications Current Medications Medications (Trade) Dose Ordered Sig/Suzie Route Start Time Stop Time Status Last Admin (Plavix) 75 mg DAILY PO 07/29/17 12:45 08/01/17 09:10 (Ecotrin Ec) 325 mg DAILY PO 07/29/17 12:45 08/01/17 09:10 (NovoLOG SUPPLEMENTAL SCALE) 1 ACHS SQ 07/29/17 17:00 07/30/17 17:00 (D50w (Vial) Inj) 50 ml UNSCH PRN IV PUSH 07/29/17 13:15 (Glucagon Inj) 1 mg UNSCH PRN OTHER 07/29/17 13:15 (Vasotec Inj) 1.25 mg Q6H PRN IV PUSH 07/29/17 15:30 07/30/17 03:14 (Lopressor) 25 mg Q12HR PO 07/29/17 21:00 08/01/17 09:09 (Norvasc) 5 mg DAILY PO 07/30/17 09:00 08/01/17 09:11 (Lipitor) 20 mg HS PO 07/30/17 21:00 07/31/17 21:50 (Sinemet 25-100 Mg) 1 tab Q8HR PO 07/30/17 14:00 07/31/17 21:50 (Effexor) 150 mg DAILY PO 07/30/17 09:00 08/01/17 09:00 (Flomax) 0.4 mg DAILY PO 07/30/17 10:00 08/01/17 09:10 (Pepcid) 20 mg BID PO 07/30/17 09:30 08/01/17 09:11 Patient Own Medication PT OWN MED: LINZ... DAILY PO 07/31/17 09:00 Future Hold (Proamatine) 5 mg TID@07,12,17 PO 07/31/17 12:15 08/01/17 09:10 Vital Signs / I&O Vital Signs Date Time Temp Pulse Resp B/P (MAP) Pulse Ox O2 Delivery O2 Flow Rate FiO2 08/01/17 04:00 58 16 146/88 (107) 99 08/01/17 02:00 52 08/01/17 01:36 58 16 129/73 (91) 98 144/71 (95) 114/58 (76) 08/01/17 01:00 54 08/01/17 00:00 54 08/01/17 00:00 51 07/31/17 23:00 80 07/31/17 22:00 78 07/31/17 21:28 97 21 07/31/17 21:00 80 07/31/17 20:15 80 07/31/17 20:00 164/86 (112) 07/31/17 18:02 74 07/31/17 17:08 74 07/31/17 16:49 80 07/31/17 15:44 78 07/31/17 15:44 97.7 78 18 178/77 (110) 97 172/75 (107) 138/71 (93) 07/31/17 14:30 94 07/31/17 13:14 75 07/31/17 12:28 76 07/31/17 11:36 74 07/31/17 11:36 97.8 74 18 177/88 (117) 99 146/77 (100) 138/71 (93) 07/31/17 10:22 68 I/O 07/31/17 07/31/17 07/31/17 08/01/17 08/01/17 08/01/17 07:00 15:00 23:00 07:00 15:00 23:00 Intake Total 1240 ml 240 ml 240 ml Output Total 700 ml 1900 ml 1250 ml Balance 540 ml -1660 ml -1010 ml Intake Oral 240 ml 240 ml 240 ml IV Total 1000 ml Output Urine Total 700 ml 1900 ml 1250 ml # Bowel Movements 0 0 Physical Exam GENERAL: NAD, AAOX3 SKIN: Warm and dry. HEAD: Atraumatic. Normocephalic. EYES: Pupils equal and round. No scleral icterus. No injection or drainage. ENT: No nasal bleeding or discharge. Mucous membranes pink and moist. NECK: Trachea midline. No JVD. CARDIOVASCULAR: Regular rate and rhythm. RESPIRATORY: No accessory muscle use. Clear to auscultation. Breath sounds equal bilaterally. GASTROINTESTINAL: Abdomen soft, non-tender, nondistended. Hepatic and splenic margins not palpable. MUSCULOSKELETAL: Extremities without clubbing, cyanosis, or edema. No obvious deformities. NEUROLOGICAL: Awake and alert. No obvious cranial nerve deficits. Motor grossly within normal limits. Five out of 5 muscle strength in the arms and legs. Normal speech. PSYCHIATRIC: Appropriate mood and affect; insight and judgment normal. Laboratory Laboratory Tests Test 08/01/17 05:53 White Blood Count 7.8 TH/MM3 Red Blood Count 4.39 MIL/MM3 Hemoglobin 13.7 GM/DL Hematocrit 39.1 % Mean Corpuscular Volume 88.9 FL Mean Corpuscular Hemoglobin 31.2 PG Mean Corpuscular Hemoglobin Concent 35.1 % Red Cell Distribution Width 13.9 % Platelet Count 184 TH/MM3 Mean Platelet Volume 7.7 FL Neutrophils (%) (Auto) 59.1 % Lymphocytes (%) (Auto) 27.7 % Monocytes (%) (Auto) 8.5 % Eosinophils (%) (Auto) 4.4 % Basophils (%) (Auto) 0.3 % Neutrophils # (Auto) 4.6 TH/MM3 Lymphocytes # (Auto) 2.2 TH/MM3 Monocytes # (Auto) 0.7 TH/MM3 Eosinophils # (Auto) 0.3 TH/MM3 Basophils # (Auto) 0.0 TH/MM3 CBC Comment DIFF FINAL Differential Comment Blood Urea Nitrogen 10 MG/DL Creatinine 0.99 MG/DL Random Glucose 98 MG/DL Total Protein 7.1 GM/DL Albumin 3.5 GM/DL Calcium Level 8.4 MG/DL Phosphorus Level 2.7 MG/DL Magnesium Level 2.2 MG/DL Alkaline Phosphatase 97 U/L Aspartate Amino Transf (AST/SGOT) 22 U/L Alanine Aminotransferase (ALT/SGPT) 9 U/L Total Bilirubin 0.5 MG/DL Sodium Level 144 MEQ/L Potassium Level 4.0 MEQ/L Chloride Level 112 MEQ/L Carbon Dioxide Level 25.5 MEQ/L Anion Gap 7 MEQ/L Estimat Glomerular Filtration Rate 74 ML/MIN Assessment and Plan Problem List: (1) CAD (coronary artery disease) ICD Codes: I25.10 - Atherosclerotic heart disease of [place] coronary artery without angina pectoris (2) Parkinsonism ICD Codes: G20 - Parkinson's disease (3) TIA (transient ischemic attack) ICD Codes: G45.9 - Transient cerebral ischemic attack, unspecified (4) Accelerated hypertension ICD Codes: I10 - Essential (primary) hypertension Status: Acute Assessment and Plan 1) TIA Per neurology 2) CAD Stable, can follow up with cardiology up in [place] Per the , he had 2-3 stents in Nov and is due for another in the near future when they go back Con't ASA/Plavix 3) Syncope Possible due to hypertensive urgency? Patient asymptomatic before the events, no CP/SOB/palpitations Needs exterminator rhythm analysis Previously had 30 day monitor at home Recommend either another event monitor or loop recorder once back in [place] 4) HTN Somewhat better controlled today 5) EF 65% 6) Orthostatic hypotension Possible due to Carbidopa/Levodopa and Flomax Started on Midodrine Autonomic dysfunction 7) No further cardiovascular work up at this time Dusty Connelly DO Aug 01, 2017 09:47
[2017-08-01] MEDS: CARBIDOPA/LEVODOPA 25 MG/100 MG TAB PO SCH (14:05)
--- NOTE | 2017-08-01 15:09 | HHI.PR ---
Subjective Remarks The patient is a 72-year-old male with history of TIA who presented to the emergency department with complaint of numbness in his hands that started this morning. He also had some difficulty speaking. His states that his speech was slurred and he had left-sided facial droop. He reported weakness on his left side. Symptoms have essentially resolved at this point. Denies headache or vision changes. Denies chest pain or dyspnea. 07-30 patient has been seen by cardiology and neurology. Patient is having blatant orthostasis Discussed with RN and patient and family and Patient is going for a stat MRI due to symptoms that appear to sound more like orthostasis and hypotension, than actual stroke or TIA, similar symptoms from his Parkinson's Patient will need event monitor when he goes back to [place] Echo is pending We will more than likely be cleared by neurology but will hold him today due to his hypotension and orthostasis 07-31 WILL START ON MIDODRINE 5MG PO TID DW RN AND PATIENT AND FAMILY DW WITH [facility] AM LABS CLEARED BY NEUROLOGY STILL HAD SOME ORTHOSTASIS WANTS NOTE FOR AIRLINE 08-01 CLEARED BY CARDIO AND NEUROLOGY ON MIDODRINE 5MG TID WORKED WITH PT AND OT LESS ORTHOSTATIC DC TO HOME WITH [facility] Objective Vitals Vital Signs Date Time Temp Pulse Resp B/P (MAP) Pulse Ox O2 Delivery O2 Flow Rate FiO2 08/01/17 11:00 97.9 60 18 170/80 (110) 97 165/82 (109) 115/68 (84) 08/01/17 07:00 97.7 58 18 180/95 (123) 98 170/88 (115) 120/69 (86) 08/01/17 04:00 58 16 146/88 (107) 99 08/01/17 02:00 52 08/01/17 01:36 58 16 129/73 (91) 98 144/71 (95) 114/58 (76) 08/01/17 01:00 54 08/01/17 00:00 54 08/01/17 00:00 51 07/31/17 23:00 80 07/31/17 22:00 78 07/31/17 21:28 97 21 07/31/17 21:00 80 07/31/17 20:15 80 07/31/17 20:00 164/86 (112) 07/31/17 18:02 74 07/31/17 17:08 74 07/31/17 16:49 80 07/31/17 15:44 78 07/31/17 15:44 97.7 78 18 178/77 (110) 97 172/75 (107) 138/71 (93) I/O 07/31/17 07/31/17 07/31/17 08/01/17 08/01/17 08/01/17 07:00 15:00 23:00 07:00 15:00 23:00 Intake Total 1240 ml 240 ml 240 ml Output Total 700 ml 1900 ml 1250 ml Balance 540 ml -1660 ml -1010 ml Intake Oral 240 ml 240 ml 240 ml IV Total 1000 ml Output Urine Total 700 ml 1900 ml 1250 ml # Bowel Movements 0 0 Result Diagram: 08/01/17 0553 08/01/17 0553 Other Results Laboratory Tests Test 07/29/17 15:28 07/29/17 16:00 07/29/17 22:15 07/30/17 04:20 Erythrocyte Sedimentation Rate 11 mm/hr Aspartate Amino Transf (AST/SGOT) 19 U/L Alanine Aminotransferase (ALT/SGPT) 22 U/L Troponin I LESS THAN 0.02 NG/ML LESS THAN 0.02 NG/ML LESS THAN 0.02 NG/ML Triglycerides Level 132 MG/DL 127 MG/DL Cholesterol Level 138 MG/DL 144 MG/DL LDL Cholesterol 53 MG/DL 62 MG/DL HDL Cholesterol 58.6 MG/DL 56.6 MG/DL Cholesterol/HDL Ratio 2.35 RATIO 2.54 RATIO Vitamin B12 Level 678 PG/ML Free Thyroxine 1.00 NG/DL Thyroid Stimulating Hormone 3rd Gen 3.020 uIU/ML Anti-Nuclear Antibody Screen NEG Rapid Plasma Reagin NON-REACTIVE Total Creatine Kinase 38 U/L 48 U/L Hemoglobin A1c 5.4 % Test 07/30/17 21:48 07/31/17 05:57 08/01/17 05:53 Troponin I 0.02 NG/ML White Blood Count 8.0 TH/MM3 7.8 TH/MM3 Red Blood Count 4.25 MIL/MM3 4.39 MIL/MM3 Hemoglobin 13.1 GM/DL 13.7 GM/DL Hematocrit 37.8 % 39.1 % Mean Corpuscular Volume 88.9 FL 88.9 FL Mean Corpuscular Hemoglobin 30.8 PG 31.2 PG Mean Corpuscular Hemoglobin Concent 34.6 % 35.1 % Red Cell Distribution Width 13.9 % 13.9 % Platelet Count 190 TH/MM3 184 TH/MM3 Mean Platelet Volume 7.5 FL 7.7 FL Neutrophils (%) (Auto) 68.1 % 59.1 % Lymphocytes (%) (Auto) 21.9 % 27.7 % Monocytes (%) (Auto) 7.6 % 8.5 % Eosinophils (%) (Auto) 2.2 % 4.4 % Basophils (%) (Auto) 0.2 % 0.3 % Neutrophils # (Auto) 5.5 TH/MM3 4.6 TH/MM3 Lymphocytes # (Auto) 1.8 TH/MM3 2.2 TH/MM3 Monocytes # (Auto) 0.6 TH/MM3 0.7 TH/MM3 Eosinophils # (Auto) 0.2 TH/MM3 0.3 TH/MM3 Basophils # (Auto) 0.0 TH/MM3 0.0 TH/MM3 CBC Comment DIFF FINAL DIFF FINAL Differential Comment Blood Urea Nitrogen 11 MG/DL 10 MG/DL Creatinine 0.94 MG/DL 0.99 MG/DL Random Glucose 103 MG/DL 98 MG/DL Total Protein 6.5 GM/DL 7.1 GM/DL Albumin 3.3 GM/DL 3.5 GM/DL Calcium Level 8.1 MG/DL 8.4 MG/DL Phosphorus Level 2.1 MG/DL 2.7 MG/DL Magnesium Level 2.2 MG/DL 2.2 MG/DL Alkaline Phosphatase 85 U/L 97 U/L Aspartate Amino Transf (AST/SGOT) 14 U/L 22 U/L Alanine Aminotransferase (ALT/SGPT) 8 U/L 9 U/L Total Bilirubin 0.7 MG/DL 0.5 MG/DL Sodium Level 145 MEQ/L 144 MEQ/L Potassium Level 3.3 MEQ/L 4.0 MEQ/L Chloride Level 110 MEQ/L 112 MEQ/L Carbon Dioxide Level 25.4 MEQ/L 25.5 MEQ/L Anion Gap 10 MEQ/L 7 MEQ/L Estimat Glomerular Filtration Rate 79 ML/MIN 74 ML/MIN Hemoglobin A1c 5.3 % Free Thyroxine 0.99 NG/DL Thyroid Stimulating Hormone 3rd Gen 3.810 uIU/ML Imaging Last Impressions Brain MRI 07/30/17 0000 Signed Impressions: Service Date/Time: Sunday, July 30, 2017 14:57 - CONCLUSION: 1. Mild to moderate chronic ischemic changes in the white matter. No acute findings. No recent infarct. Chiki Dill MD Neck CTA 07/29/17 1151 Signed Impressions: Service Date/Time: Saturday, July 29, 2017 12:13 - CONCLUSION: Normal vascular anatomy without evidence of stenosis, dissection significant luminal narrowing. Extensive degenerative changes are identified within the cervical spine. The lungs are significant for a noncalcified nodule identified within the left upper lobe measuring 4 mm. Misty Elise MD Head CTA 07/29/17 1151 Signed Impressions: Service Date/Time: Saturday, July 29, 2017 12:13 - CONCLUSION: No evidence of aneurysm, dissection or stenosis. No significant luminal narrowing.. Misty Elise MD Head CT 07/29/17 0000 Signed Impressions: Service Date/Time: Saturday, July 29, 2017 12:05 - CONCLUSION: Normal examination. Misty Elise MD Objective Remarks GENERAL: Awake and alert talkative and cooperative somewhat rigid SKIN: Warm and dry. HEAD: Atraumatic. Normocephalic. EYES: Pupils equal and round. No scleral icterus. No injection or drainage. Extraocular muscles intact ENT: No nasal bleeding or discharge. Mucous membranes pink and moist. Tongue is midline NECK: Trachea midline. No JVD. Supple CARDIOVASCULAR: Regular rate and rhythm. S1-S2 no S3 or S4 RESPIRATORY: No accessory muscle use. Clear to auscultation. Breath sounds equal bilaterally. GASTROINTESTINAL: Abdomen soft, non-tender, nondistended. Hepatic and splenic margins not palpable. MUSCULOSKELETAL: Extremities without clubbing, cyanosis, or edema. No obvious deformities. NEUROLOGICAL: Awake and alert. No obvious cranial nerve deficits. Motor grossly within normal limits. 4 out of 5 muscle strength in the arms and legs. Normal speech. Rigid movement for a Parkinson's patient with rigid movements PSYCHIATRIC: Appropriate mood and affect; insight and judgment normal. Procedures NONE Medications and IVs Current Medications Iohexol (Omnipaque 350 Inj) 85 ml STK-MED ONCE IVCONTRAST Last administered on 07/29/17at 12:28; Start 07/29/17 at 12:28; Stop 07/29/17 at 12:29; Status DC Aspirin (Aspirin) 325 mg ONCE ONCE PO Last administered on 07/29/17at 12:45; Start 07/29/17 at 12:45; Stop 07/29/17 at 12:46; Status DC Nicardipine HCl 25 mg/Sodium Chloride 250 ml @ 50 mls/hr TITRATE PRN IV Blood pressure management Last administered on 07/29/17at 13:10; Start 07/29/17 at 12:45 ; Stop 07/29/17 at 15:29; Status DC Clopidogrel Bisulfate (Plavix) 75 mg DAILY PO Last administered on 08/01/17at 09 :10; Start 07/29/17 at 12:45 Aspirin (Ecotrin Ec) 325 mg DAILY PO Last administered on 08/01/17at 09:10; Start 07/29/17 at 12:45 Sodium Chloride 1,000 ml @ 100 mls/hr Q10H IV Last administered on 07/31/17at 10 :26; Start 07/29/17 at 12:36; Stop 07/31/17 at 14:27; Status DC Insulin Aspart (NovoLOG SUPPLEMENTAL SCALE) 1 ACHS SQ Last administered on at 17:00; Start 07/29/17 at 17:00 Dextrose (D50w (Vial) Inj) 50 ml UNSCH PRN IV PUSH HYPOGLYCEMIA-SEE COMMENTS; Start 07/29/17 at 13:15 Glucagon (Glucagon Inj) 1 mg UNSCH PRN OTHER HYPOGLYCEMIA-SEE COMMENTS; Start 07/29/17 at 13:15 Metoprolol Tartrate (Lopressor) 25 mg ONCE ONCE PO Last administered on at 17:17; Start 07/29/17 at 15:30; Stop 07/29/17 at 15:31; Status DC Enalaprilat (Vasotec Inj) 1.25 mg Q6H PRN IV PUSH SBP> OR = 180, DBP> OR = 100 Last administered on 07/30/17at 03:14; Start 07/29/17 at 15:30 Metoprolol Tartrate (Lopressor) 50 mg Q12HR PO ; Start 07/29/17 at 21:00; Stop at 21:00; Status DC Gadodiamide (Omniscan Pf Inj) 16 ml STK-MED ONCE IVCONTRAST Last administered on 07/29/17at 16:42; Start 07/29/17 at 16:42; Stop 07/29/17 at 16:43; Status DC Metoprolol Tartrate (Lopressor) 25 mg Q12HR PO Last administered on 08/01/17at 09:09; Start 07/29/17 at 21:00 Amlodipine Besylate (Norvasc) 5 mg DAILY PO Last administered on 08/01/17at 09: 11; Start 07/30/17 at 09:00 Clonidine (Catapres) 0.1 mg ONCE ONCE PO Last administered on 07/29/17at 21:41; Start 07/29/17 at 21:15; Stop 07/29/17 at 21:16; Status DC Hydralazine HCl (Apresoline Inj) 10 mg ONCE ONCE IV PUSH Last administered on 07/30/17at 05:55; Start 07/30/17 at 05:45; Stop 07/30/17 at 05:52; Status DC Aspirin (Aspirin Chew) 81 mg DAILY CHEW ; Start 07/30/17 at 09:00; Stop 07/30/17 at 09:00; Status DC Atorvastatin Calcium (Lipitor) 20 mg HS PO Last administered on 07/31/17at 21:50 ; Start 07/30/17 at 21:00 Carbidopa/Levodopa (Sinemet 25-100 Mg) 1 tab Q8HR PO Last administered on at 14:05; Start 07/30/17 at 14:00 Clopidogrel Bisulfate (Plavix) 75 mg DAILY PO ; Start 07/30/17 at 09:00; Stop 07/30/17 at 09:18; Status DC Metoprolol Tartrate (Lopressor) 25 mg BID PO ; Start 07/30/17 at 09:00; Stop 07/30 at 09:19; Status DC Venlafaxine HCl (Effexor) 150 mg DAILY PO Last administered on 08/01/17at 09:00 ; Start 07/30/17 at 09:00 Tamsulosin HCl (Flomax) 0.4 mg DAILY PO Last administered on 08/01/17at 09:10; Start 07/30/17 at 10:00 Non-Formulary Medication 145 mcg DAILY PO ; Start 07/30/17 at 09:00; Status UNV Famotidine (Pepcid) 20 mg BID PO Last administered on 08/01/17at 09:11; Start at 09:30 Patient Own Medication PT OWN MED: LINZ... DAILY PO ; Start 07/31/17 at 09:00; Status Future Hold Midodrine (Proamatine) 5 mg TID@07,12,17 PO Last administered on 08/01/17at 12: 00; Start 07/31/17 at 12:15 Potassium Chloride 100 ml @ 50 mls/hr Q2H IV Last administered on 07/31/17at 19: 00; Start 07/31/17 at 13:00; Stop 07/31/17 at 20:59; Status DC A/P Problem List: (1) TIA (transient ischemic attack) ICD Code: G45.9 - Transient cerebral ischemic attack, unspecified (2) Accelerated hypertension ICD Code: I10 - Essential (primary) hypertension Status: Acute Assessment and Plan 1. TIA: Patient developed numbness in his hands, slurred speech, and left facial droop. Symptoms have resolved. Imaging is unremarkable. Appreciate neurology recommendations. Patient was not a candidate to receive TPA. Continue Plavix. Echocardiogram, Holter monitor ordered. Aspirin increased to 325 mg daily. Cardiology consulted. 2. Hypertensive urgency: Blood pressure significantly elevated. Patient was placed on nicardipine drip initially. Will transition him off of the nicardipine and increase oral beta-cherie. Vasotec IV as needed. 3. Coronary artery disease: No chest pain. Check serial cardiac enzymes. Patient's states that he is due to have another stent placed when he returns to [place]. Consult cardiology for further recommendations. 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 DVT prophylaxis: SHARI Freitas. Discharge Planning Patient has been cleared by cardiology AND neurology Mynor Goddard DO Aug 01, 2017 15:09
[2017-08-01] MEDS ORDERED: CARB25TA9 PO (15:15)
[2017-08-01] MEDS ORDERED: CEFU1TAB18 PO (15:15)
[2017-08-01] MEDS ORDERED: PLAV75TA29 PO (15:15)
[2017-08-01] MEDS ORDERED: ATOR20TA15 PO (15:15)
[2017-08-01] MEDS ORDERED: VENL100T PO (15:15)
[2017-08-01] MEDS ORDERED: MIDO5TAB PO (15:15)
[2017-08-01] MEDS ORDERED: METO25TA3 PO (15:15)
[2017-08-01] MEDS ORDERED: ALFU10TA2 PO (15:15)
[2017-08-01] MEDS ORDERED: ASPI325T33 PO (15:15)
[2017-08-01] MEDS ORDERED: AMLO5 PO (15:15)
--- NOTE | 2017-08-01 15:17 | HHI.DS ---
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 ICD Code: G90.3 - Multi-system degeneration of the autonomic nervous system Diagnosis: Principal (4) Orthostatic hypertension ICD Code: I10 - Essential (primary) hypertension Diagnosis: Principal (5) Parkinsonism ICD Code: G20 - Parkinson's disease Diagnosis: Principal (6) CAD (coronary artery disease) ICD Code: I25.10 - Atherosclerotic heart disease of [place] coronary artery without angina pectoris Diagnosis: Principal (7) UTI (urinary tract infection) ICD Code: N39.0 - Urinary tract infection, site not specified Diagnosis: Principal Procedures NONE Brief History - From Admission The patient is a 72-year-old male with history of TIA who presented to the emergency department with complaint of numbness in his hands that started this morning. He also had some difficulty speaking. His states that his speech was slurred and he had left-sided facial droop. He reported weakness on his left side. Symptoms have essentially resolved at this point. Denies headache or vision changes. Denies chest pain or dyspnea. CBC/BMP: 08/01/17 0553 08/01/17 0553 Significant Findings Laboratory Tests Test 07/29/17 15:28 07/29/17 16:00 07/29/17 22:15 07/30/17 04:20 Troponin I LESS THAN 0.02 NG/ML LESS THAN 0.02 NG/ML LESS THAN 0.02 NG/ML Total Creatine Kinase 38 U/L (39-308) Test 07/30/17 21:48 07/31/17 05:57 08/01/17 05:53 Red Blood Count 4.25 MIL/MM3 (4.50-5.90) 4.39 MIL/MM3 (4.50-5.90) Hematocrit 37.8 % (39.0-51.0) Albumin 3.3 GM/DL (3.4-5.0) Calcium Level 8.1 MG/DL (8.5-10.1) 8.4 MG/DL (8.5-10.1) Phosphorus Level 2.1 MG/DL (2.5-4.9) Aspartate Amino Transf (AST/SGOT) 14 U/L (15-37) Alanine Aminotransferase (ALT/SGPT) 8 U/L (12-78) 9 U/L (12-78) Potassium Level 3.3 MEQ/L (3.5-5.1) Chloride Level 110 MEQ/L (98-107) 112 MEQ/L (98-107) Estimat Glomerular Filtration Rate 79 ML/MIN (>89) 74 ML/MIN (>89) Thyroid Stimulating Hormone 3rd Gen 3.810 uIU/ML (0.358-3.740) Monocytes (%) (Auto) 8.5 % (0.0-8.0) Eosinophils (%) (Auto) 4.4 % (0.0-4.0) Imaging Last Impressions Brain MRI 07/30/17 0000 Signed Impressions: Service Date/Time: Sunday, July 30, 2017 14:57 - CONCLUSION: 1. Mild to moderate chronic ischemic changes in the white matter. No acute findings. No recent infarct. Chiki Dill MD Neck CTA 07/29/17 115 Signed Impressions: Service Date/Time: Saturday, July 29, 2017 12:13 - CONCLUSION: Normal vascular anatomy without evidence of stenosis, dissection significant luminal narrowing. Extensive degenerative changes are identified within the cervical spine. The lungs are significant for a noncalcified nodule identified within the left upper lobe measuring 4 mm. Misty Elise MD Head CTA 07/29/17 1151 Signed Impressions: Service Date/Time: Saturday, July 29, 2017 12:13 - CONCLUSION: No evidence of aneurysm, dissection or stenosis. No significant luminal narrowing.. Misty Elise MD Head CT 07/29/17 0000 Signed Impressions: Service Date/Time: Saturday, July 29, 2017 12:05 - CONCLUSION: Normal examination. Misty Elise MD PE at Discharge GENERAL: Awake and alert talkative and cooperative somewhat rigid SKIN: Warm and dry. HEAD: Atraumatic. Normocephalic. EYES: Pupils equal and round. No scleral icterus. No injection or drainage. Extraocular muscles intact ENT: No nasal bleeding or discharge. Mucous membranes pink and moist. Tongue is midline NECK: Trachea midline. No JVD. Supple CARDIOVASCULAR: Regular rate and rhythm. S1-S2 no S3 or S4 RESPIRATORY: No accessory muscle use. Clear to auscultation. Breath sounds equal bilaterally. GASTROINTESTINAL: Abdomen soft, non-tender, nondistended. Hepatic and splenic margins not palpable. MUSCULOSKELETAL: Extremities without clubbing, cyanosis, or edema. No obvious deformities. NEUROLOGICAL: Awake and alert. No obvious cranial nerve deficits. Motor grossly within normal limits. 4 out of 5 muscle strength in the arms and legs. Normal speech. Rigid movement for a Parkinson's patient with rigid movements PSYCHIATRIC: Appropriate mood and affect; insight and judgment normal. Hospital Course The patient is a 72-year-old male with history of TIA who presented to the emergency department with complaint of numbness in his hands that started this morning. He also had some difficulty speaking. His states that his speech was slurred and he had left-sided facial droop. He reported weakness on his left side. Symptoms have essentially resolved at this point. Denies headache or vision changes. Denies chest pain or dyspnea. 4-8 patient has been seen by cardiology and neurology. Patient is having blatant orthostasis Discussed with RN and patient and family and Patient is going for a stat MRI due to symptoms that appear to sound more like orthostasis and hypotension, than actual stroke or TIA, similar symptoms from his Parkinson's Patient will need event monitor when he goes back to [place] is pending We will more than likely be cleared by neurology but will hold him today due to his hypotension and orthostasis 4-9 WILL START ON MIDODRINE 5MG PO TID DW RN AND PATIENT AND FAMILY DW WITH [facility] AM LABS CLEARED BY NEUROLOGY STILL HAD SOME ORTHOSTASIS WANTS NOTE FOR AIRLINE 4-10 CLEARED BY CARDIO AND NEUROLOGY ON MIDODRINE 5MG TID WORKED WITH PT AND OT LESS ORTHOSTATIC DC TO HOME WITH [facility] UTI WILL TREAT WITH CEFTIN Pt Condition on Discharge: Fair Discharge Disposition: Disch w/ Home Health Serv Discharge Time: > 30 minutes Discharge Instructions DIET: Follow Instructions for: As Tolerated, No Restrictions, Heart Healthy Diet Speech Therapy-Diet Recommends: Regular Activities you can perform: Regular-No Restrictions Follow up Referrals: Cardiology - 1 Month Neurology - 2 Weeks with Branden Martin MD PCP Follow-up - 1 Month New Medications: Cefuroxime (Ceftin) 250 Mg Tab 250 MG PO BID for Infection for 10 Days, #20 TAB Amlodipine (Norvasc) 5 Mg Tab 5 MG PO DAILY for Blood Pressure Management, #[address] (Aspirin EC) 325 Mg Tabdr 325 MG PO DAILY for Blood Clot Prevention, #30 TAB Midodrine (Midodrine) 5 Mg Tab 5 MG PO TID@07,12,17 for Blood Pressure Management, #90 TAB Continued Medications: Alfuzosin ER 24 HR (Alfuzosin ER 24 HR) 10 Mg Tab 10 MG PO DAILY for BPH, #30 TAB 0 Refills (This prescription has been renewed) Atorvastatin (Atorvastatin) 20 Mg Tab 20 MG PO HS for Cholesterol Management, #30 TAB 0 Refills (This prescription has been renewed) Carbidopa-Levodopa (Carbidopa-Levodopa) 25-100 Mg Tab 1 TAB PO Q8HR for Parkinson Disease Mgmt, #90 TAB 0 Refills (This prescription has been renewed) Clopidogrel (Plavix) 75 Mg Tab 75 MG PO DAILY for Blood Clot Prevention, #30 TAB 0 Refills (This prescription has been renewed) Linaclotide (Linzess) 145 Mcg Cap 145 MCG PO DAILY, CAP 0 Refills Metoprolol Tartrate (Metoprolol Tartrate) 25 Mg Tab 25 MG PO BID for Regulate Heart Beat, #60 TAB 0 Refills (This prescription has been renewed) Ranitidine (Ranitidine) 150 Mg Tab 150 MG PO DAILY for Heartburn Management, #30 TAB 0 Refills Rasagiline (Azilect) 1 Mg Tab TAB Venlafaxine (Effexor) 100 Mg Tab 150 MG PO DAILY for Depression Control, #60 TAB 0 Refills (This prescription has been renewed) Discontinued Medications: Carbidopa-Levodopa (Carbidopa-Levodopa) 25-100 Mg Tab 1 TAB PO Q8HR for Parkinson Disease Mgmt, #90 TAB 0 Refills Mynor Goddard DO Aug 01, 2017 15:17
== END 2017-08-01 16:31 | disposition home health service (06) | DRG 69 ==
LOC: NEPC 11:45 → NEDA 13:03 → NEDH 20:29 → HCIS 07-30 15:35
PROVIDERS: ADMIT Hospitalist; ATTEND Hospitalist
DX: G45.9 Transient cerebral ischemic attack, unspecified (principal); G20 Parkinson's disease; N39.0 Urinary tract infection, site not specified; I10 Essential (primary) hypertension; R47.1 Dysarthria and anarthria; E87.6 Hypokalemia; I16.0 Hypertensive urgency; I95.1 Orthostatic hypotension; E78.00 Pure hypercholesterolemia, unspecified; F45.8 Other somatoform disorders; I25.10 Atherosclerotic heart disease of native coronary artery without angina pectoris; Z95.5 Presence of coronary angioplasty implant and graft; N27.0 Small kidney, unilateral; Z79.02 Long term (current) use of antithrombotics/antiplatelets; Z79.82 Long term (current) use of aspirin
CPT/HCPCS: 70450; 70496; 70498; 70551; 70553; 80048; 80053; 80061; 80307; 81001; 82550; 82607; 82948; 83036; 83735; 84100; 84425; 84439; 84443; 84450; 84460; 84484; 85025; 85384; 85610; 85652; 85730; 86038; 86592; 86850; 86900; 86901; 87086; 93005; 93225; 93226; 93306; 95819; A9579; J0360; J1815; J3480; J7030; J7050; Q9967

== ENCOUNTER 2018-02-09 19:28 | Inpatient (IN) ==
[2018-02-09] MEDS ORDERED: Acetaminophen 650 MG Supp RECTAL ONE (19:53)
[2018-02-09] MEDS ORDERED: Piperacil/Tazo 4.5 GM Premix 4.5 GM/100 ML BAG IV.SIG ONE (19:56)
[2018-02-09] MEDS ORDERED: Vancomycin Inj 1 GM/200 ML PIGGYBACK IV.SIG ONE (19:56)
[2018-02-09] MEDS: Sod Chloride 0.9% Inj 1,000 ML IV.SIG SCH (20:15)
--- NOTE | 2018-02-09 20:27 | CT ---
EXAM DATE: 02/09/2018 8:05 PM EDT AGE/SEX: 72 years / Male INDICATIONS: Abdominal pain. CLINICAL DATA: This is the patient's initial encounter. Patient reports that signs and symptoms have been present for 1 day and indicates a pain score of Nonresponsive. MEDICAL/SURGICAL HISTORY: Parkinson's disease. Hypertension. Hypercholesterolemia. None. RADIATION DOSE: 12.35 CTDI (mGy) COMPARISON: No prior exams available for comparison. TECHNIQUE: Multiple contiguous axial images were obtained through the abdomen. Images were obtained using multiple row detector helical technique. Using automated exposure control and adjustment of the mA and/or kV according to patient size, radiation dose was kept as low as reasonably achievable to o btain optimal diagnostic quality images. DICOM format image data is available electronically for rev iew and comparison. FINDINGS: There is patchy airspace consolidation in the right lower lobe most characteristic of pneumonia or as piration. Small bilateral pleural effusions with left basilar atelectasis as well. Trace pericardial fluid. No acute findings in the liver, spleen, adrenals, left kidney or pancreas. Right kidney is atrophic. No calcified gallstones or biliary ductal dilatation. Moderate constipation. Carpio catheter present in the bladder. CONCLUSION: 1. Patchy dense consolidation right lower lobe most characteristic of pneumonia or aspiration. Small bilateral pleural effusions. 2. No acute findings within the abdomen and pelvis. Atrophic right kidney. Moderate constipation. Fo halima catheter in decompressed bladder. Electronically signed by: Chiki Dill MD 02/09/2018 8:26 PM EDT
--- NOTE | 2018-02-09 20:39 | XR ---
EXAM DATE: 02/09/2018 7:53 PM EDT AGE/SEX: 72 years / Male INDICATIONS: Fever. Short of breath. CLINICAL DATA: This is the patient's initial encounter. Patient reports that signs and symptoms have been present for 3 days and indicates a pain score of 0/10. MEDICAL/SURGICAL HISTORY: . Parkinson's disease. Hypertension. Hypercholesterolemia. None. COMPARISON: No prior exams available for comparison. FINDINGS: The heart is mildly prominent. Perihilar and bibasilar infiltrates are noted consistent with pulmonar y vascular congestion versus pneumonia. Clinical correlation is recommended. Degenerative changes and scoliosis of the thoracic spine are noted. There is elevation of the right hemidiaphragm. CONCLUSION: 1. Perihilar and bibasilar infiltrates consistent with pulmonary vascular congestion versus pneumoni a. Clinical correlation is recommended. 2. Mild cardiomegaly. 3. Elevation of the right hemidiaphragm. Electronically signed by: Dominick Whitehead MD 02/09/2018 8:38 PM EDT
[2018-02-09 20:45] LABS: Baso % (Auto) 0.3 % (0.0-2.0); Eos # (Auto) 0.1 th/mm3 (0.0-0.4); Eos % (Auto) 0.6 % (0.0-4.0); Hemoglobin 10.2 gm/dL (13.0-17.0); Lymph # (Auto) 0.8 th/mm3 (1.0-4.8); Lymph % (Auto) 8.2 % (9.0-44.0); Mean Corpuscular HGB Conc 34.2 % (32.0-36.0); Mean Corpuscular Hemoglobin 31.3 pg (27.0-34.0); Mean Corpuscular Volume 91.5 fL (80.0-100.0); Mean Platelet Volume 7.7 fL (7.0-11.0); Mono # (Auto) 0.8 th/mm3 (0.0-0.9); Mono % (Auto) 8.6 % (0.0-8.0); Neut # (Auto) 7.8 th/mm3 (1.8-7.7); Neut % (Auto) 82.3 % (16.0-70.0); Platelet Count 212 th/mm3 (150-450); Red Blood Count 3.27 mil/mm3 (4.50-5.90); Red Cell Distribution Width 13.5 % (11.6-17.2); White Blood Count 9.5 th/mm3 (4.0-11.0)
[2018-02-09 20:53] LABS: Prothrombin Time 10.4 sec (9.8-11.6)
[2018-02-09 20:56] LABS: Bilirubin,Urine Negative (Negative); Clarity,Urine Hazy (Clear); Color,Urine Yellow (Yellw/Straw); Glucose,Urine (UA) 50 mg/dL (Negative); Hyaline Casts,Urine 1 /lpf (0-3); Leukocyte Esterase,Urine Trace (Negative); Nitrite,Urine Negative (Negative); Specific Gravity,Urine 1.014 (1.002-1.035)
[2018-02-09 20:57] LABS: Albumin 2.5 g/dL (3.4-5.0); Anion Gap 10 meq/L (5-15); Aspartate Aminotransferase 43 U/L (15-37); Blood Urea Nitrogen 9 mg/dL (7-18); Calcium 8.4 mg/dL (8.5-10.1); Carbon Dioxide 27.2 meq/L (21.0-32.0); Chloride 97 meq/L (98-107); Glomerular Filtration Rate 79 mL/min (>89); Glucose,Random 191 mg/dL (74-106); Magnesium 1.8 mg/dL (1.5-2.5); Potassium 3.6 meq/L (3.5-5.1); Sodium 134 meq/L (136-145)
[2018-02-09 20:58] LABS: Alanine Aminotransferase 21 U/L (12-78)
[2018-02-09 21:02] LABS: Alkaline Phosphatase 102 U/L (45-117); Total Protein 6.5 g/dL (6.4-8.2); Troponin I 0.04 ng/mL (0.02-0.05)
--- NOTE | 2018-02-09 21:13 | ED ---
HPI General Chief Complaint: Fever Stated Complaint: Fever/Possible UTI Time Seen by Provider: 02/09/18 19:53 Source: EMS Mode of arrival: EMS Limitations: altered mental status History of Present Illness HPI Narrative: 72-year-old male was brought to the emergency room by EMS for fever, chills and some altered mental status. He was brought from home. Patient's temperature upon arrival oral was 103. As per EMS he was getting treated with ciprofloxacin for UTI. Patient has history of Parkinson's and his called 911. As per EMS patient has been sick for past couple days but worse today. Patient was awake and answering questions with some pause and delay but overall appropriately. He was hypertensive upon arrival. He denied of any pain anywhere. He does recall having intense chills today. Awaiting for his family to arrive to give more history. Patient has history of parkinsonism. As per EMS had given last Tylenol yesterday. MD complaint: Reports fever Onset (ago): hour(s) Temperature Source: oral (103) Related Data Home Medications Medication Instructions Recorded Confirmed alfuzosin 10 mg PO DAILY 02/09/18 02/09/18 aspirin [Aspir-81] 81 mg PO DAILY 02/09/18 02/09/18 atorvastatin 20 mg PO DAILY 02/09/18 02/09/18 calcium carbonate [Calcium 500] 1 tab PO DAILY 02/09/18 02/09/18 carbidopa-levodopa 2 tab PO TID 02/09/18 02/09/18 clopidogrel [Plavix] 75 mg PO DAILY 02/09/18 02/09/18 finasteride 1 mg PO DAILY 02/09/18 02/09/18 fludrocortisone 0.1 mg PO DAILY 02/09/18 02/09/18 linaclotide [Linzess] 145 mcg PO DAILY 02/09/18 02/09/18 metoprolol tartrate 25 mg PO BID 02/09/18 02/09/18 wfozmaubjtfa-Pa-wvmf-minerals 1 tab PO DAILY 02/09/18 02/09/18 [Multiple Vitamin, Womens] omega-3 fatty acids [Fish Oil 1 tab PO DAILY 02/09/18 02/09/18 Concentrate] ranitidine HCl 150 mg PO DAILY 02/09/18 02/09/18 rasagiline [Azilect] 1 mg PO DAILY 02/09/18 02/09/18 venlafaxine 150 mg PO DAILY 02/09/18 02/09/18 Previous Rx's Medication Instructions Recorded amoxicillin-pot clavulanate 1 tab PO Q12H 7 Days #14 tab 02/12/18 [Augmentin] benzonatate [Tessalon Perles] 100 mg PO TID PRN 7 Days #21 cap 02/12/18 budesonide-formoterol [Symbicort] 2 puff INH BID 30 Days #1 g 02/12/18 Allergies Allergy/AdvReac Type Severity Reaction Status Date / Time No Known Allergies Allergy Unverified 07/29/17 12:33 Review of Systems ROS: all other systems reviewed are negative Constitutional Reports chills and Reports fever(s) [facility] Medical History Medical History High cholesterol (Acute) Hypertension (Acute) Parkinson disease (Acute) Social History Social History Substance History: No History of Abuse Second Hand Smoke Exposure: No Smoking Status: Never smoker How Often Do You Have a Drink Containing Alcohol: Never Recent Travel in [facility] within the Last 8 Weeks: No Recent Out of Country Travel within the Last 8 Weeks: No Immunization History Tetanus Immunization: >5 Years Exam Narrative Exam Narrative: GENERAL: Awake, slight confused, moderate distress SKIN: Focused skin assessment warm/dry. Large ecchymosis on the right hip area HEAD: Atraumatic. Normocephalic. EYES: Pupils equal and round. No scleral icterus. No injection or drainage. ENT: No nasal bleeding or discharge. Mucous membranes pink and moist. NECK: Trachea midline. No JVD. CARDIOVASCULAR: Regular rate and rhythm. No murmur appreciated. RESPIRATORY: No accessory muscle use. Clear to auscultation. Breath sounds equal bilaterally. GASTROINTESTINAL: Abdomen soft, distended, tense, nontender. Hepatic and splenic margins not palpable. MUSCULOSKELETAL: No obvious deformities. No clubbing. No cyanosis. No edema. NEUROLOGICAL: Awake but slightly confused. No obvious cranial nerve deficits. Motor grossly within normal limits. Normal speech. PSYCHIATRIC: Appropriate mood and affect; insight and judgment normal. Course Initial Documented Vital Signs Temperature 103 F H 02/09/18 19:38 Pulse Rate 96 H 02/09/18 19:38 Respiratory Rate 22 02/09/18 19:38 Blood Pressure 194/95 H 02/09/18 19:38 Pulse Oximetry 95 02/09/18 19:38 Last Documented Vital Signs Temperature 97.8 F 02/12/18 18:01 Pulse Rate 85 02/13/18 00:06 Respiratory Rate 18 02/12/18 18:01 Blood Pressure 195/93 H 02/12/18 18:01 Pulse Oximetry 95 02/12/18 18:01 Critical Care Time Critical Care Time: Yes Total Critical Care Time: 45 Attestation: Aggregate critical care time was 45 minutes. Time to perform other separately billable procedures was not included in the critical care time. My time did not include minutes spent treating any other patients simultaneously or on activities that did not directly contribute to the patient's treatment. The services I provided to this patient were to treat and/or prevent clinically significant deterioration that could result in: Sepsis, sepsis protocol I provided critical care services requiring my management, as noted below: Chart data review, documentation time, medication orders and management, vital sign assessments/reviewing monitor data, ordering and reviewing lab tests, ordering and interpreting/reviewing x-rays and diagnostic studies, care of the patient and discussion of the patient with the admitting physicians. Medical Decision Making MDM Narrative Medical decision making narrative: 11 PM all the workup is back and x-ray as well as a CT is suggestive of a right lower lobe infiltrate. Patient has received IV Zosyn and IV vancomycin. I updated his about the test results. His told me that last Monday he was seen at the [facility] emergency room for frequent falls. He was diagnosed with UTI and was discharged home on ciprofloxacin. He started getting fever with chills that night. Today she noticed that he was confused and having visual hallucinations. She called 911. I explained to her that patient would require admission. She is agreeable with that plan. I discussed the case with the hospitalist was accepted the patient. I explained to the about the diagnosis and that he would require admission. Medical Screen Exam Complete: Yes Emergency Medical Condition: Yes Lab Data Result diagrams: 02/10/18 08:26 02/12/18 04:35 Lab Results 02/09/18 02/09/18 02/09/18 Range/Units 20:15 20:15 20:15 WBC 9.5 (4.0-11.0) th/mm3 RBC 3.27 L (4.50-5.90) mil/mm3 Hgb 10.2 L (13.0-17.0) gm/dL Hct 30.0 L (39.0-51.0) % MCV 91.5 (80.0-100.0) fL MCH 31.3 (27.0-34.0) pg MCHC 34.2 (32.0-36.0) % RDW 13.5 (11.6-17.2) % Plt Count 212 (150-450) th/mm3 MPV 7.7 (7.0-11.0) fL Neut % (Auto) 82.3 H (16.0-70.0) % Lymph % (Auto) 8.2 L (9.0-44.0) % [place] % (Auto) 8.6 H (0.0-8.0) % Eos % (Auto) 0.6 (0.0-4.0) % Baso % (Auto) 0.3 (0.0-2.0) % Neut # (Auto) 7.8 H (1.8-7.7) th/mm3 Lymph # (Auto) 0.8 L (1.0-4.8) th/mm3 [place] # (Auto) 0.8 (0.0-0.9) th/mm3 Eos # (Auto) 0.1 (0.0-0.4) th/mm3 Baso # (Auto) 0.0 (0.0-0.2) th/mm3 WBC Differential . Differential Comment Auto diff final PT 10.4 (9.8-11.6) sec INR 1.0 Ratio Sodium 134 L (136-145) meq/L Potassium 3.6 (3.5-5.1) meq/L Chloride 97 L (98-107) meq/L Carbon Dioxide 27.2 (21.0-32.0) meq/L Anion Gap 10 (5-15) meq/L BUN 9 (7-18) mg/dL Creatinine 0.94 (0.60-1.30) mg/dL Estimated GFR 79 L (>89) mL/min Random Glucose 191 H (74-106) mg/dL Lactic Acid (0.4-2.0) mmol/L Calcium 8.4 L (8.5-10.1) mg/dL Magnesium 1.8 (1.5-2.5) mg/dL Total Bilirubin 0.7 (0.2-1.0) mg/dL AST 43 H (15-37) U/L ALT 21 (12-78) U/L Alkaline Phosphatase 102 (45-117) U/L Troponin I 0.04 (0.02-0.05) ng/mL Total Protein 6.5 (6.4-8.2) g/dL Albumin 2.5 L (3.4-5.0) g/dL Urine Color (Yellw/Straw) Urine Clarity (Clear) Urine pH (5.0-8.5) Ur Specific [place] (1.002-1.035) Urine Protein (Neg-Trace) mg/dL Urine Glucose (UA) (Negative) mg/dL Urine Ketones (Negative) mg/dL Urine Occult Blood (Negative) Urine Nitrate (Negative) Urine Bilirubin (Negative) Urine Urobilinogen (Less than 2) mg/dL Ur Leukocyte Esterase (Negative) Urine WBC (0-5) /hpf Hyaline Casts (0-3) /lpf Micro UA Comment Ur Microscopic Review Urine Culture Comments Vancomycin Trough (5.0-10.0) mcg/mL 02/09/18 02/09/18 02/09/18 Range/Units 20:15 20:15 23:26 WBC (4.0-11.0) th/mm3 RBC (4.50-5.90) mil/mm3 Hgb (13.0-17.0) gm/dL Hct (39.0-51.0) % MCV (80.0-100.0) fL MCH (27.0-34.0) pg MCHC (32.0-36.0) % RDW (11.6-17.2) % Plt Count (150-450) th/mm3 MPV (7.0-11.0) fL Neut % (Auto) (16.0-70.0) % Lymph % (Auto) (9.0-44.0) % [place] % (Auto) (0.0-8.0) % Eos % (Auto) (0.0-4.0) % Baso % (Auto) (0.0-2.0) % Neut # (Auto) (1.8-7.7) th/mm3 Lymph # (Auto) (1.0-4.8) th/mm3 [place] # (Auto) (0.0-0.9) th/mm3 Eos # (Auto) (0.0-0.4) th/mm3 Baso # (Auto) (0.0-0.2) th/mm3 WBC Differential Differential Comment PT (9.8-11.6) sec INR Ratio Sodium (136-145) meq/L Potassium (3.5-5.1) meq/L Chloride (98-107) meq/L Carbon Dioxide (21.0-32.0) meq/L Anion Gap (5-15) meq/L BUN (7-18) mg/dL Creatinine (0.60-1.30) mg/dL Estimated GFR (>89) mL/min Random Glucose (74-106) mg/dL Lactic Acid 2.1 H 0.8 (0.4-2.0) mmol/L Calcium (8.5-10.1) mg/dL Magnesium (1.5-2.5) mg/dL Total Bilirubin (0.2-1.0) mg/dL AST (15-37) U/L ALT (12-78) U/L Alkaline Phosphatase (45-117) U/L Troponin I (0.02-0.05) ng/mL Total Protein (6.4-8.2) g/dL Albumin (3.4-5.0) g/dL Urine Color Yellow (Yellw/Straw) Urine Clarity Hazy H (Clear) Urine pH 6.0 (5.0-8.5) Ur Specific [place] 1.014 (1.002-1.035) Urine Protein 30 H (Neg-Trace) mg/dL Urine Glucose (UA) 50 (Negative) mg/dL Urine Ketones Trace H (Negative) mg/dL Urine Occult Blood Negative (Negative) Urine Nitrate Negative (Negative) Urine Bilirubin Negative (Negative) Urine Urobilinogen 2.0 H (Less than 2) mg/dL Ur Leukocyte Esterase Trace H (Negative) Urine WBC 13 H (0-5) /hpf Hyaline Casts 1 (0-3) /lpf Micro UA Comment Cath-culture ind Ur Microscopic Review Not Reportable Urine Culture Comments Cath-cult indicated Vancomycin Trough (5.0-10.0) mcg/mL 02/10/18 02/10/18 02/11/18 Range/Units 08:26 08:26 02:35 WBC 9.1 (4.0-11.0) th/mm3 RBC 3.16 L (4.50-5.90) mil/mm3 Hgb 10.0 L (13.0-17.0) gm/dL Hct 28.4 L (39.0-51.0) % MCV 89.9 (80.0-100.0) fL MCH 31.7 (27.0-34.0) pg MCHC 35.3 (32.0-36.0) % RDW 13.5 (11.6-17.2) % Plt Count 210 (150-450) th/mm3 MPV 7.8 (7.0-11.0) fL Neut % (Auto) 84.8 H (16.0-70.0) % Lymph % (Auto) 5.6 L (9.0-44.0) % [place] % (Auto) 9.0 H (0.0-8.0) % Eos % (Auto) 0.4 (0.0-4.0) % Baso % (Auto) 0.2 (0.0-2.0) % Neut # (Auto) 7.7 (1.8-7.7) th/mm3 Lymph # (Auto) 0.5 L (1.0-4.8) th/mm3 [place] # (Auto) 0.8 (0.0-0.9) th/mm3 Eos # (Auto) 0.0 (0.0-0.4) th/mm3 Baso # (Auto) 0.0 (0.0-0.2) th/mm3 WBC Differential . Differential Comment Auto diff final PT (9.8-11.6) sec INR Ratio Sodium 140 (136-145) meq/L Potassium 3.3 L (3.5-5.1) meq/L Chloride 105 D (98-107) meq/L Carbon Dioxide 27.1 (21.0-32.0) meq/L Anion Gap 8 (5-15) meq/L BUN 9 (7-18) mg/dL Creatinine 0.92 0.77 (0.60-1.30) mg/dL Estimated GFR 81 L Greater than 89 (>89) mL/min Random Glucose 159 H (74-106) mg/dL Lactic Acid (0.4-2.0) mmol/L Calcium 7.8 L (8.5-10.1) mg/dL Magnesium (1.5-2.5) mg/dL Total Bilirubin 0.8 (0.2-1.0) mg/dL AST 31 (15-37) U/L ALT 28 (12-78) U/L Alkaline Phosphatase 99 (45-117) U/L Troponin I (0.02-0.05) ng/mL Total Protein 6.1 L (6.4-8.2) g/dL Albumin 2.3 L (3.4-5.0) g/dL Urine Color (Yellw/Straw) Urine Clarity (Clear) Urine pH (5.0-8.5) Ur Specific [place] (1.002-1.035) Urine Protein (Neg-Trace) mg/dL Urine Glucose (UA) (Negative) mg/dL Urine Ketones (Negative) mg/dL Urine Occult Blood (Negative) Urine Nitrate (Negative) Urine Bilirubin (Negative) Urine Urobilinogen (Less than 2) mg/dL Ur Leukocyte Esterase (Negative) Urine WBC (0-5) /hpf Hyaline Casts (0-3) /lpf Micro UA Comment Ur Microscopic Review Urine Culture Comments Vancomycin Trough (5.0-10.0) mcg/mL 02/12/18 02/12/18 Range/Units 02:35 04:35 WBC (4.0-11.0) th/mm3 RBC (4.50-5.90) mil/mm3 Hgb (13.0-17.0) gm/dL Hct (39.0-51.0) % MCV (80.0-100.0) fL MCH (27.0-34.0) pg MCHC (32.0-36.0) % RDW (11.6-17.2) % Plt Count (150-450) th/mm3 MPV (7.0-11.0) fL Neut % (Auto) (16.0-70.0) % Lymph % (Auto) (9.0-44.0) % [place] % (Auto) (0.0-8.0) % Eos % (Auto) (0.0-4.0) % Baso % (Auto) (0.0-2.0) % Neut # (Auto) (1.8-7.7) th/mm3 Lymph # (Auto) (1.0-4.8) th/mm3 [place] # (Auto) (0.0-0.9) th/mm3 Eos # (Auto) (0.0-0.4) th/mm3 Baso # (Auto) (0.0-0.2) th/mm3 WBC Differential Differential Comment PT (9.8-11.6) sec INR Ratio Sodium 141 (136-145) meq/L Potassium 3.4 L (3.5-5.1) meq/L Chloride 105 (98-107) meq/L Carbon Dioxide 27.6 (21.0-32.0) meq/L Anion Gap 8 (5-15) meq/L BUN 16 (7-18) mg/dL Creatinine 0.91 (0.60-1.30) mg/dL Estimated GFR 82 L (>89) mL/min Random Glucose 262 H D (74-106) mg/dL Lactic Acid (0.4-2.0) mmol/L Calcium 8.0 L (8.5-10.1) mg/dL Magnesium (1.5-2.5) mg/dL Total Bilirubin (0.2-1.0) mg/dL AST (15-37) U/L ALT (12-78) U/L Alkaline Phosphatase (45-117) U/L Troponin I (0.02-0.05) ng/mL Total Protein (6.4-8.2) g/dL Albumin (3.4-5.0) g/dL Urine Color (Yellw/Straw) Urine Clarity (Clear) Urine pH (5.0-8.5) Ur Specific [place] (1.002-1.035) Urine Protein (Neg-Trace) mg/dL Urine Glucose (UA) (Negative) mg/dL Urine Ketones (Negative) mg/dL Urine Occult Blood (Negative) Urine Nitrate (Negative) Urine Bilirubin (Negative) Urine Urobilinogen (Less than 2) mg/dL Ur Leukocyte Esterase (Negative) Urine WBC (0-5) /hpf Hyaline Casts (0-3) /lpf Micro UA Comment Ur Microscopic Review Urine Culture Comments Vancomycin Trough 11.6 H (5.0-10.0) mcg/mL Imaging Data Radiologist's impression: Chest X-Ray 02/09/18 19:53 CONCLUSION: 1. Perihilar and bibasilar infiltrates consistent with pulmonary vascular congestion versus pneumonia. Clinical correlation is recommended. 2. Mild cardiomegaly. 3. Elevation of the right hemidiaphragm. Abdomen/Pelvis CT 02/09/18 19:54 CONCLUSION: 1. Patchy dense consolidation right lower lobe most characteristic of pneumonia or aspiration. Small bilateral pleural effusions. 2. No acute findings within the abdomen and pelvis. Atrophic right kidney. Moderate constipation. Carpio catheter in decompressed bladder. ECG Data Attestation: I personally reviewed and interpreted this ECG as follows: Interpretation: Twelve-lead EKG was reviewed by me. Normal sinus rhythm, normal axis, nonspecific ST-T wave changes. Heart rate of 98 bpm. Discharge Plan Discharge Disposition Patient Disposition: 30 Still Patient Discharge Condition Condition: Stable Discharge Details Anticipated Discharge Date: 02/13/18 Physicians Team ED Provider: Ebonie Easley Primary Care Provider: UNKNOWN, Attending Provider: Solange Chen Status ED Status: Left Department Discharge Information Discharge Date/Time: 02/10/18 01:40
[2018-02-09] MEDS ORDERED: Vancomycin Consult Pharmacy OTHER PRN (22:38)
[2018-02-09] MEDS ORDERED: Acetaminophen 325 MG Tablet PO PRN (22:38)
[2018-02-09] MEDS ORDERED: Bisacodyl 10 MG Supp RECTAL PRN (22:38)
--- NOTE | 2018-02-09 22:44 | P.HPIM ---
History of Present Illness Primary Care Physician: UNKNOWN History of Present Illness: This is a 72-year-old male with a PMH of HTN, Hyperlipidemia and Parkinson's Disease who was brought to the ER by EMS secondary to fever, confusion and weakness. Pt's and cousins at bedside providing history. Per family, pt seen at [facility] on Monday for weakness and confusion, found to have UTI and d /c'd home on Keflex, states pt taking medications as prescribed. Today, pt noted to be more confused w/ progressive weakness, persistent fevers and unable to ambulate independently like he normally does. states he follows w/ Dr. Santiago and w/ a Neurologist back in [place] for Parkinson's, contacted Dr. Santiago office today and was told to go to the ER for further evaluation. On arrival, BP 194/95, HR 96, O2 sat 95% on RA, Temp 103. CBC essentially unremarkable. INR 1.0. Chemistry unremarkable except for GFR 79. Lactic Acid 2.1. UA positive for UTI. CXR with bibasilar infiltrates. CT Abdomen/Pelvis patchy dense consolidation right lower lobe, no acute findings in the abdomen and pelvis, moderate constipation. S/p Vanc/Zosyn in ER. - Diagnosis (1) SIRS (systemic inflammatory response syndrome) (2) PNA (pneumonia) (3) UTI (urinary tract infection) (4) Failure of outpatient treatment (5) Parkinson disease Review of Systems PAST FAMILY HISTORY: Reviewed. No h/o DM or CAD All other systems reviewed negative except as stated in HPI PMFSH - History History Provided By: Trade Economist / EMT - Medical History Medical History: Medical History (Last Reviewed 02/09/18 @ 21:10 by Ebonie Easley MD) High cholesterol Hypertension Parkinson disease - Tobacco History Second Hand Smoke Exposure: No Smoking Status: Never smoker - Alcohol History How Often Do You Have a Drink Containing Alcohol: Never - Substance Use History Substance History: No History of Abuse - Travel History Recent Travel in the [place] Within the Last 8 Weeks: No Recent Travel Out of the Country Within the Last 8 Weeks: No - Immunization History Tetanus Immunization: >5 Years Medications and Allergies Active Medications: Active Medications Sodium Chloride (Ns Inj) 1,000 mls @ 0 mls/hr IV.SIG BOLUS GODFREY Stop: 02/10/18 20:01 Last Infusion: 02/09/18 21:58 Dose: Infused Allergies Allergy/AdvReac Type Severity Reaction Status Date / Time No Known Allergies Allergy Unverified 07/29/17 12:33 Home Medications Medication Instructions Recorded Confirmed Type alfuzosin 10 mg PO DAILY 02/09/18 02/09/18 History aspirin [Aspir-81] 81 mg PO DAILY 02/09/18 02/09/18 History atorvastatin 20 mg PO DAILY 02/09/18 02/09/18 History calcium carbonate [Calcium 500] 1 tab PO DAILY 02/09/18 02/09/18 History carbidopa-levodopa 2 tab PO TID 02/09/18 02/09/18 History clopidogrel [Plavix] 75 mg PO DAILY 02/09/18 02/09/18 History finasteride 1 mg PO DAILY 02/09/18 02/09/18 History fludrocortisone 0.1 mg PO DAILY 02/09/18 02/09/18 History linaclotide [Linzess] 145 mcg PO DAILY 02/09/18 02/09/18 History metoprolol tartrate 25 mg PO BID 02/09/18 02/09/18 History pfzaechjdryj-Wc-tmyg-minerals 1 tab PO DAILY 02/09/18 02/09/18 History [Multiple Vitamin, Womens] omega-3 fatty acids [Fish Oil 1 tab PO DAILY 02/09/18 02/09/18 History Concentrate] ranitidine HCl 150 mg PO DAILY 02/09/18 02/09/18 History rasagiline [Azilect] 1 mg PO DAILY 02/09/18 02/09/18 History venlafaxine 150 mg PO DAILY 02/09/18 02/09/18 History Exam Vital signs: Vital Signs 02/09/18 19:38 02/09/18 20:17 Temperature 103 F H Pulse Rate 96 H 89 Respiratory Rate 22 20 Blood Pressure 194/95 H 188/93 H Pulse Oximetry 95 96 Intake & Output 02/09/18 02/09/18 02/10/18 06:59 18:59 06:59 Intake Total 1350 / 1350 Balance 1350 / 1350 Weight 77.111 kg Intake: IV 1350 / 1350 Zosyn 4.5 GM Premix 4.5 gm In 100 / 100 100 ml @ 200 mls/hr IV.SIG ONCE ONE Rx#:[id number] NS Inj 1,000 ML @ Wide Open IV. 1000 / 1000 SIG BOLUS GODFREY Rx#:[id number] Vancomycin Inj 1 gm In 200 ml @ 250 / 250 200 mls/hr IV.SIG ONCE ONE Rx# :[id number] Narrative: PE: GENERAL: Pleasant elderly male in no acute distress. Family at bedside. SKIN: Focused skin assessment warm and dry. HEENT: PERRLA, EOMI. No scleral icterus or conjunctival pallor. No lid lag or facial droop. CARDIOVASCULAR: Regular rate and rhythm. No obvious murmurs to auscultation. No chest tenderness to palpation. RESPIRATORY: No obvious rhonchi, occasional wheezing. Clear to auscultation. Breath sounds equal bilaterally. GASTROINTESTINAL: Abdomen soft, non-tender, nondistended. BS normal. MUSCULOSKELETAL: Extremities without clubbing, cyanosis, or edema. No obvious deformities. NEUROLOGICAL: Awake, alert, mildly confused but answering questions. No focal neurologic deficits. Moving both upper and lower extremities spontaneously. PSYCHIATRIC: Appropriate mood and affect. Insight and judgment normal. Results - Labs CBC & Chem 7: 02/09/18 20:15 02/09/18 20:15 Labs: Short CBC 02/09/18 Range/Units 20:15 WBC 9.5 (4.0-11.0) th/mm3 Hgb 10.2 L (13.0-17.0) gm/dL Hct 30.0 L (39.0-51.0) % Plt Count 212 (150-450) th/mm3 BMP 02/09/18 20:15 Sodium 134 L Potassium 3.6 Chloride 97 L Carbon Dioxide 27.2 BUN 9 Creatinine 0.94 Calcium 8.4 L Cardiac Enzymes 02/09/18 Range/Units 20:15 Troponin I 0.04 (0.02-0.05) ng/mL Liver Function 02/09/18 Range/Units 20:15 Total Bilirubin 0.7 (0.2-1.0) mg/dL AST 43 H (15-37) U/L ALT 21 (12-78) U/L Alkaline Phosphatase 102 (45-117) U/L Albumin 2.5 L (3.4-5.0) g/dL Urine 02/09/18 Range/Units 20:15 Urine Color Yellow (Yellw/Straw) Urine Clarity Hazy H (Clear) Urine pH 6.0 (5.0-8.5) Ur Specific [place] 1.014 (1.002-1.035) Urine Protein 30 H (Neg-Trace) mg/dL Urine Glucose (UA) 50 (Negative) mg/dL - Imaging Impressions Chest X-Ray 02/09/18 19:53 CONCLUSION: 1. Perihilar and bibasilar infiltrates consistent with pulmonary vascular congestion versus pneumonia. Clinical correlation is recommended. 2. Mild cardiomegaly. 3. Elevation of the right hemidiaphragm. Abdomen/Pelvis CT 02/09/18 19:54 CONCLUSION: 1. Patchy dense consolidation right lower lobe most characteristic of pneumonia or aspiration. Small bilateral pleural effusions. 2. No acute findings within the abdomen and pelvis. Atrophic right kidney. Moderate constipation. Carpio catheter in decompressed bladder. Caprini VTE Risk Assessment Caprini VTE Risk Assessment: No/Low Risk (score <= 1) Caprini Risk Assessment Model: Point Value = 1 Point Value = 2 Point Value = 3 Point Value = 5 Age 41-60 Minor surgery BMI > 25 kg/m2 Swollen legs Varicose veins or History of unexplained or recurrent spontaneous Oral contraceptives or hormone replacement Sepsis (< 1 month) Serious lung disease, including pneumonia (< 1 month) Abnormal pulmonary function Acute myocardial infarction Congestive heart failure (< 1 month) History of inflammatory bowel disease Medical patient at bed rest Age 61-74 Arthroscopic surgery Major open surgery (> 45 min) Laparoscopic surgery (> 45 min) Malignancy Confined to bed (> 72 hours) Immobilizing plaster cast Central venous access Age >= 75 History of VTE Family history of VTE Factor V Leiden Prothrombin [id number] Lupus anticoagulant Anticardiolipin antibodies Elevated serum homocysteine Heparin-induced thrombocytopenia Other congenital or acquired thrombophilia Stroke (< 1 month) Elective arthroplasty Hip, pelvis, or leg fracture Acute spinal cord injury (< 1 month) Prophylaxis Regimen: Total Risk Factor Score Risk Level Prophylaxis Regimen 0-1 Low Early ambulation 2 Moderate Order ONE of the following: *Sequential Compression Device (SCD) *Heparin 5000 units SQ BID 3-4 Higher Order ONE of the following medications: *Heparin 5000 units SQ TID *Enoxaparin/Lovenox 40 mg SQ daily (WT < 150 kg, CrCl > 30 mL/min) *Enoxaparin/Lovenox 30 mg SQ daily (WT < 150 kg, CrCl > 10-29 mL/min) *Enoxaparin/Lovenox 30 mg SQ BID (WT < 150 kg, CrCl > 30 mL/min) AND/OR *Sequential Compression Device (SCD) 5 or more Highest Order ONE of the following medications: *Heparin 5000 units SQ TID (Preferred with Epidurals) *Enoxaparin/Lovenox 40 mg SQ daily (WT < 150 kg, CrCl > 30 mL/min) *Enoxaparin/Lovenox 30 mg SQ daily (WT < 150 kg, CrCl > 10-29 mL/min) *Enoxaparin/Lovenox 30 mg SQ BID (WT < 150 kg, CrCl > 30 mL/min) AND *Sequential Compression Device (SCD) Assessment and Plan - Assessment (1) SIRS (systemic inflammatory response syndrome) Code(s): R65.10 - Systemic inflammatory response syndrome (SIRS) of non- infectious origin without acute organ dysfunction Status: Acute (2) PNA (pneumonia) Code(s): J18.9 - Pneumonia, unspecified organism Status: Acute (3) UTI (urinary tract infection) Code(s): N39.0 - Urinary tract infection, site not specified Status: Acute (4) Failure of outpatient treatment Code(s): Z78.9 - Other specified health status Status: Acute (5) Parkinson disease Code(s): G20 - Parkinson's disease Status: Acute - Plan A/P: 1. SIRS/Sepsis: Temp 103, HR 96, Source-PNA/UTI, s/p Blood Cultures, Vanc/ Zosyn, follow up cultures, continue IV Abx, IVF for hydration. 2. PNA: CXR w/ bibasilar infiltrates, CT Abd/Pelvis w/ RLL pneumonia, images reviewed. Continue w/ IV Abx, DuoNeb prn, Symbicort 3. UTI: U/a w/ UTI, +Failed outpatient tx, recently on Keflex since Monday ( 3 days), follow up urine cultures, continue IV Abx, monitor I/O, IVF. 4. Parkinson's Disease: Resume home medications, follows w/ Dr. Santiago and Neurologist in [place]. Consult PT for eval/tx 5. DVT Prophylaxis: SCD/Teds 6. Social work for d/c planning as needed. 7. Case discussed w/ ER physician at length, labs/records/imaging reviewed by me.
[2018-02-09] MEDS: Sod Chloride 0.9% Inj 1,000 ML IV.CONT SCH (23:30)
[2018-02-10] MEDS ORDERED: Vancomycin Inj 500 MG in Sodium Chlor 0.9% Inj 100 ML IV.SIG SCH ×2
[2018-02-10] MEDS: Piperacil/Tazo 4.5 GM Premix 4.5 GM/100 ML BAG IV.SIG SCH ×4 (02:16→20:34)
[2018-02-10] MEDS: Sod Chloride 0.9% Inj 1,000 ML IV.SIG SCH (02:20)
[2018-02-10] MEDS ORDERED: AZILECT 1 MG PO SCH (09:00)
[2018-02-10] MEDS ORDERED: PT OWN LINZESS 145 MCG PO SCH (09:00)
[2018-02-10] MEDS ORDERED: PROSCAR PO SCH (09:00)
[2018-02-10] MEDS: Senna/Docusate Sodium 8.6/50 MG Tablet PO SCH ×2 (09:11→20:35)
[2018-02-10] MEDS: Metoprolol Tartrate 25 MG Tablet PO SCH ×2 (09:11→20:35)
[2018-02-10] MEDS: Sod Chloride 0.9% Inj 1,000 ML IV.CONT SCH ×2 (09:14→19:53)
[2018-02-10] MEDS: Budesonide-Formoterol 160/4.5 MCG 6 GM Inhaler INH SCH ×2 (09:35→20:35)
[2018-02-10 10:04] LABS: Baso % (Auto) 0.2 % (0.0-2.0); Eos % (Auto) 0.4 % (0.0-4.0); Hematocrit 28.4 % (39.0-51.0); Lymph # (Auto) 0.5 th/mm3 (1.0-4.8); Lymph % (Auto) 5.6 % (9.0-44.0); Mean Corpuscular HGB Conc 35.3 % (32.0-36.0); Mean Corpuscular Hemoglobin 31.7 pg (27.0-34.0); Mean Corpuscular Volume 89.9 fL (80.0-100.0); Mean Platelet Volume 7.8 fL (7.0-11.0); Mono # (Auto) 0.8 th/mm3 (0.0-0.9); Neut # (Auto) 7.7 th/mm3 (1.8-7.7); Neut % (Auto) 84.8 % (16.0-70.0); Platelet Count 210 th/mm3 (150-450); Red Blood Count 3.16 mil/mm3 (4.50-5.90); Red Cell Distribution Width 13.5 % (11.6-17.2); White Blood Count 9.1 th/mm3 (4.0-11.0)
[2018-02-10 10:36] LABS: Alanine Aminotransferase 28 U/L (12-78); Albumin 2.3 g/dL (3.4-5.0); Alkaline Phosphatase 99 U/L (45-117); Anion Gap 8 meq/L (5-15); Aspartate Aminotransferase 31 U/L (15-37); Blood Urea Nitrogen 9 mg/dL (7-18); Calcium 7.8 mg/dL (8.5-10.1); Carbon Dioxide 27.1 meq/L (21.0-32.0); Chloride 105 meq/L (98-107); Glomerular Filtration Rate 81 mL/min (>89); Glucose,Random 159 mg/dL (74-106); Potassium 3.3 meq/L (3.5-5.1); Sodium 140 meq/L (136-145); Total Protein 6.1 g/dL (6.4-8.2)
--- NOTE | 2018-02-10 11:48 | P.DCO ---
- Diagnosis (1) SIRS (systemic inflammatory response syndrome) Status: Acute (2) PNA (pneumonia) Status: Acute (3) UTI (urinary tract infection) Status: Acute (4) Failure of outpatient treatment Status: Acute (5) Parkinson disease Status: Acute - Physical Therapy Order: Evaluate and treat - Home Health Nursing Order: Medical education, Signs/symptoms of disease process, Nursing assessment with vital signs - Case Management Consult Yes - Certification I have seen patient Eugenio Alcantara on 02/10/18. My clinical findings support the need for the requested home health care services because: SEPSIS, PNA, WEAKNESS, HX OF PARKINSONS Patient has SOB, Deconditioned with increased weakness, Limited ability to care for self, Need for psychosocial assistance I certify that my clinical findings support that this patient is homebound because: Impaired cognitive ability/safety, Unsteady gait/balance
[2018-02-10] MEDS: LINZESS 145 MCG PO SCH (12:37)
[2018-02-10] MEDS: MethylPREDNISolone Sod Succinate Inj 40 MG/ML Vial IV.PUSH SCH ×2 (13:51→20:35)
[2018-02-10] MEDS ORDERED: Potassium Chloride 25 MEQ Effervescent Tablet PO ONE (13:57)
[2018-02-10] MEDS ORDERED: guaiFENesin 600 MG ER Tablet PO ONE (14:00)
--- NOTE | 2018-02-10 14:11 | P.PN ---
Subjective Interval history: Follow-up for pneumonia, sepsis, UTI-patient sitting up in chair, per family, patient more oriented today. Patient awakes to voice, he states he feels better. Has a cough with a cough that is nonproductive, occasional wheezing. No chest pain, no shortness of breath. Was able to get out of bed to the chair. Still weak. Temperature max 99.8. Blood pressure has been elevated 170s-190s. at bedside. Indicates that they are going back to [place] in approximately 2 weeks and is concerned about his ability to ambulate. Physical Exam Vital signs: Vital Signs 02/09/18 19:38 02/09/18 20:17 02/10/18 00:03 Temperature 103 F H 98.9 F Pulse Rate 96 H 89 74 Respiratory Rate 22 20 15 Blood Pressure 194/95 H 188/93 H 167/77 H Pulse Oximetry 95 96 94 L 02/10/18 01:40 02/10/18 04:10 02/10/18 06:00 Temperature 98.4 F 98.3 F Pulse Rate 75 88 96 H Respiratory Rate 17 21 22 Blood Pressure 170/90 H 179/88 H Pulse Oximetry 96 93 L 02/10/18 08:00 02/10/18 12:28 Temperature 99.8 F H 98.8 F Pulse Rate 101 H 83 Respiratory Rate 28 H 14 Blood Pressure 197/88 H 129/75 Pulse Oximetry 95 Intake & Output 02/09/18 02/10/18 02/10/18 18:59 06:59 18:59 Intake Total 2790 / 2790 1100 / 1100 Output Total 1000 / 1000 650 / 650 Balance 1790 / 1790 450 / 450 Weight 87.5 kg Intake: IV 2550 / 2550 1100 / 1100 NS Inj 1,000 ML @ 100 mls/hr IV 1000 / 1000 .CONT .Q10H [facility] Rx#:[id number] Zosyn 4.5 GM Premix 4.5 gm In 200 / 200 100 / 100 100 ml @ 200 mls/hr IV.SIG Q6H [facility] Rx#:[id number] NS Inj 1,000 ML @ Wide Open IV. 1999 / 1999 SIG BOLUS [facility] Rx#:[id number] Vancomycin Inj 1 gm In 200 ml @ 250 / 250 200 mls/hr IV.SIG ONCE ONE Rx# :[id number] Vancomycin Inj 500 MG In NS Inj 100 / 100 100 ML @ 200 mls/hr IV.SIG DAILY@0000 [facility] Rx#:[id number] Oral 240 / 240 Output: Urine Amount (Catheter) 999 / 999 650 / 650 Indwelling Urethral Catheter 999 / 999 650 / 650 Narrative: GENERAL: Pleasant elderly male in no acute distress. SKIN: warm and dry. HEENT: Pupils equal and reactive. EOMI. No scleral icterus or conjunctival pallor. No lid lag or facial droop. CARDIOVASCULAR: Regular rate and rhythm. No obvious murmurs to auscultation. No chest tenderness to palpation. RESPIRATORY: Expiratory wheezing noted, intermittent rhonchi with coughing. Diminished at bases. GASTROINTESTINAL: Abdomen soft, non-tender, nondistended. BS normal. MUSCULOSKELETAL: Extremities without clubbing, cyanosis, or edema. No obvious deformities. NEUROLOGICAL: Awake, alert, oriented x2. Answering questions. Parkinsonian tremors noted. No focal neurologic deficits. Moving both upper and lower extremities spontaneously. PSYCHIATRIC: Appropriate mood. - Urinary Catheter Management Indwelling Urethral Catheter Cath placed during this visit: yes Reason for continuing: Acute urinary retention Insertion date: 02/09/18 Insertion time: 20:16 Results - Labs CBC & Chem 7: 02/10/18 08:26 02/10/18 08:26 Laboratory Results - last 24 hr 02/09/18 02/09/18 02/09/18 20:15 20:15 20:15 WBC 9.5 RBC 3.27 L Hgb 10.2 L Hct 30.0 L MCV 91.5 MCH 31.3 MCHC 34.2 RDW 13.5 Plt Count 212 MPV 7.7 Neut % (Auto) 82.3 H Lymph % (Auto) 8.2 L [place] % (Auto) 8.6 H Eos % (Auto) 0.6 Baso % (Auto) 0.3 Neut # (Auto) 7.8 H Lymph # (Auto) 0.8 L [place] # (Auto) 0.8 Eos # (Auto) 0.1 Baso # (Auto) 0.0 WBC Differential . Differential Comment Auto diff final PT 10.4 INR 1.0 Sodium 134 L Potassium 3.6 Chloride 97 L Carbon Dioxide 27.2 Anion Gap 10 BUN 9 Creatinine 0.94 Estimated GFR 79 L Random Glucose 191 H Lactic Acid Calcium 8.4 L Magnesium 1.8 Total Bilirubin 0.7 AST 43 H ALT 21 Alkaline Phosphatase 102 Troponin I 0.04 Total Protein 6.5 Albumin 2.5 L Urine Color Urine Clarity Urine pH Ur Specific [place] Urine Protein Urine Glucose (UA) Urine Ketones Urine Occult Blood Urine Nitrate Urine Bilirubin Urine Urobilinogen Ur Leukocyte Esterase Urine WBC Hyaline Casts Micro UA Comment Ur Microscopic Review Urine Culture Comments 02/09/18 02/09/18 02/09/18 20:15 20:15 23:26 WBC RBC Hgb Hct MCV MCH MCHC RDW Plt Count MPV Neut % (Auto) Lymph % (Auto) [place] % (Auto) Eos % (Auto) Baso % (Auto) Neut # (Auto) Lymph # (Auto) [place] # (Auto) Eos # (Auto) Baso # (Auto) WBC Differential Differential Comment PT INR Sodium Potassium Chloride Carbon Dioxide Anion Gap BUN Creatinine Estimated GFR Random Glucose Lactic Acid 2.1 H 0.8 Calcium Magnesium Total Bilirubin AST ALT Alkaline Phosphatase Troponin I Total Protein Albumin Urine Color Yellow Urine Clarity Hazy H Urine pH 6.0 Ur Specific [place] 1.014 Urine Protein 30 H Urine Glucose (UA) 50 Urine Ketones Trace H Urine Occult Blood Negative Urine Nitrate Negative Urine Bilirubin Negative Urine Urobilinogen 2.0 H Ur Leukocyte Esterase Trace H Urine WBC 13 H Hyaline Casts 1 Micro UA Comment Cath-culture ind Ur Microscopic Review Not Reportable Urine Culture Comments Cath-cult indicated 02/10/18 02/10/18 08:26 08:26 WBC 9.1 RBC 3.16 L Hgb 10.0 L Hct 28.4 L MCV 89.9 MCH 31.7 MCHC 35.3 RDW 13.5 Plt Count 210 MPV 7.8 Neut % (Auto) 84.8 H Lymph % (Auto) 5.6 L [place] % (Auto) 9.0 H Eos % (Auto) 0.4 Baso % (Auto) 0.2 Neut # (Auto) 7.7 Lymph # (Auto) 0.5 L [place] # (Auto) 0.8 Eos # (Auto) 0.0 Baso # (Auto) 0.0 WBC Differential . Differential Comment Auto diff final PT INR Sodium 140 Potassium 3.3 L Chloride 105 D Carbon Dioxide 27.1 Anion Gap 8 BUN 9 Creatinine 0.92 Estimated GFR 81 L Random Glucose 159 H Lactic Acid Calcium 7.8 L Magnesium Total Bilirubin 0.8 AST 31 ALT 28 Alkaline Phosphatase 99 Troponin I Total Protein 6.1 L Albumin 2.3 L Urine Color Urine Clarity Urine pH Ur Specific [place] Urine Protein Urine Glucose (UA) Urine Ketones Urine Occult Blood Urine Nitrate Urine Bilirubin Urine Urobilinogen Ur Leukocyte Esterase Urine WBC Hyaline Casts Micro UA Comment Ur Microscopic Review Urine Culture Comments Microbiology 02/09/18 20:15 Clean Catch Urine Urine Culture - Preliminary No growth in 24 hours 02/09/18 20:15 Blood - Peripheral Aerobic Blood Culture - Preliminary No growth in 1 day 02/09/18 20:15 Blood - Peripheral Anaerobic Blood Culture - Preliminary No growth in 1 day 02/09/18 20:15 Blood - Peripheral Aerobic Blood Culture - Preliminary No growth in 1 day 02/09/18 20:15 Blood - Peripheral Anaerobic Blood Culture - Preliminary No growth in 1 day 02/09/18 20:42 Nasal Wash Influenza Types A,B Antigen - Final Negative for FLU A and B antigen Infection due to influenza A or B cannot be ruled out since the antigen present in the sample may be below the detection limit of the test. - Imaging Impressions Chest X-Ray 02/09/18 19:53 CONCLUSION: 1. Perihilar and bibasilar infiltrates consistent with pulmonary vascular congestion versus pneumonia. Clinical correlation is recommended. 2. Mild cardiomegaly. 3. Elevation of the right hemidiaphragm. Abdomen/Pelvis CT 02/09/18 19:54 CONCLUSION: 1. Patchy dense consolidation right lower lobe most characteristic of pneumonia or aspiration. Small bilateral pleural effusions. 2. No acute findings within the abdomen and pelvis. Atrophic right kidney. Moderate constipation. Carpio catheter in decompressed bladder. Assessment and Plan - Assessment (1) SIRS (systemic inflammatory response syndrome) Code(s): R65.10 - Systemic inflammatory response syndrome (SIRS) of non- infectious origin without acute organ dysfunction Status: Acute (2) PNA (pneumonia) Code(s): J18.9 - Pneumonia, unspecified organism Status: Acute (3) UTI (urinary tract infection) Code(s): N39.0 - Urinary tract infection, site not specified Status: Acute (4) Failure of outpatient treatment Code(s): Z78.9 - Other specified health status Status: Acute (5) Parkinson disease Code(s): G20 - Parkinson's disease Status: Acute - Plan 72-year-old male with a PMH of HTN, Hyperlipidemia and Parkinson's Disease who was brought to the ER by EMS secondary to fever, confusion and weakness. Pt's and cousins at bedside providing history. Per family, pt seen at [facility] on Monday for weakness and confusion, found to have UTI and d/c'd home on Keflex, states pt taking medications as prescribed. On day of admit, pt noted to be more confused w/ progressive weakness, persistent fevers and unable to ambulate independently like he normally does. On arrival, BP 194/95, HR 96, O2 sat 95% on RA, Temp 103. CBC essentially unremarkable. INR 1.0. Chemistry unremarkable except for GFR 79. Lactic Acid 2.1. UA positive for UTI. CXR with bibasilar infiltrates. CT Abdomen/Pelvis patchy dense consolidation right lower lobe, no acute findings in the abdomen and pelvis, moderate constipation. S/p Vanc/Zosyn in ER. SIRS/Sepsis: Temp 103, HR 96, Source-PNA/UTI -Continue with Zosyn and vancomycin, follow cultures, so far negative Influenza swab negative Lactic acid down to 0.8 Continue with IV fluids Fevers trending down, less coughing -Increased wheezing and cough, continue duo nebs. Add Solu-Medrol 40 mg IV every 6. Add Mucinex 600 mg p.o. twice daily UTI, failed outpatient therapy, treated recently with Keflex since Monday for 3 days Continue to follow urine culture, so far negative Continue with IV antibiotics Monitor intake and output Continue with IV fluids Parkinson's disease Follows w/ Dr. Santiago and Neurologist in [place] -Out of bed, continue with PT Continue with Azilect and Sinemet Hypertension Blood pressure noted elevated, up to 180s Continue with Lopressor 25 mg p.o. twice daily Add clonidine 0.1 mg p.o. every 6 as needed for systolic greater than 160 and diastolic greater than 90 DVT Prophylaxis: SCD/Teds Case management consultation for discharge planning, arrange home health care with PT Code Status: Full code Discussed Condition With: RN, pt and Discharge Planning: Poss dc with HHC and PT on Monday
[2018-02-10] MEDS: Vancomycin Inj 1,500 MG in Sodium Chlor 0.9% Inj 500 ML IV.SIG SCH (14:55)
--- NOTE | 2018-02-10 20:14 | ECG ---
Date Performed: 02/09/2018 Time Performed: 19:43:27 PTAGE: 72 years EKG: Sinus rhythm NONSPECIFIC ST & T-WAVE ABNORMALITY BORDERLINE ECG PREVIOUS TRACING : 07/30/2017 11.02 Since the previous tracing, no significant change noted DOCTOR: Sandie Bradford Interpretating Date/Time 02/10/2018 20:13:09
[2018-02-11] MEDS: Piperacil/Tazo 4.5 GM Premix 4.5 GM/100 ML BAG IV.SIG SCH ×4 (01:20→20:44)
[2018-02-11] MEDS: MethylPREDNISolone Sod Succinate Inj 40 MG/ML Vial IV.PUSH SCH ×3 (01:20→13:26)
[2018-02-11 03:08] LABS: Glomerular Filtration Rate Greater Than 89 mL/min (>89)
[2018-02-11] MEDS: Sod Chloride 0.9% Inj 1,000 ML IV.CONT SCH ×2 (04:04→08:55)
[2018-02-11] MEDS: Metoprolol Tartrate 25 MG Tablet PO SCH ×2 (08:37→20:45)
[2018-02-11] MEDS: Senna/Docusate Sodium 8.6/50 MG Tablet PO SCH ×2 (08:37→20:46)
[2018-02-11] MEDS: LINZESS 145 MCG PO SCH (08:38)
--- NOTE | 2018-02-11 09:29 | P.PN ---
Subjective Interval history: Follow-up for pneumonia, sepsispatient more awake today, oriented x3. Following commands. States he feels better, less coughing. No audible wheezing today. No fever overnight. Blood pressure has been elevated, 214/98 at midnight then 195/90 at 4am. No as needed medications were given. Patient denies any chest pain or shortness of breath. Physical Exam Vital signs: Vital Signs 02/10/18 12:00 02/10/18 12:28 02/10/18 16:00 Temperature 98.8 F 98.1 F Pulse Rate 79 83 78 Respiratory Rate 14 17 Blood Pressure 129/75 163/78 H Pulse Oximetry 94 L 02/10/18 20:00 02/10/18 20:11 02/11/18 00:00 Temperature 97.6 F 97.5 F L Pulse Rate 97 H 94 H 67 Respiratory Rate 18 16 18 Blood Pressure 161/77 H 214/98 H Pulse Oximetry 94 L 95 02/11/18 04:00 02/11/18 08:40 Temperature 97.2 F L 97.8 F Pulse Rate 69 75 Respiratory Rate 17 16 Blood Pressure 195/86 H 179/91 H Pulse Oximetry 98 97 Intake & Output 02/10/18 02/11/18 02/11/18 18:59 06:59 18:59 Intake Total 2365 / 2365 1200 / 1200 1100 / 1100 Output Total 650 / 650 600 / 600 3250 / 3250 Balance 1715 / 1715 600 / 600 -2150 / -2150 Weight 84.1 kg Intake: IV 2365 / 2365 1200 / 1200 1100 / 1100 NS Inj 1,000 ML @ 100 mls/hr IV 1650 / 1650 1000 / 1000 1000 / 1000 .CONT .Q10H [facility] Rx#:[id number] Zosyn 4.5 GM Premix 4.5 gm In 200 / 200 200 / 200 100 / 100 100 ml @ 200 mls/hr IV.SIG Q6H [facility] Rx#:[id number] Vancomycin Inj 1,500 MG In NS 515 / 515 Inj 500 ML @ 250 mls/hr IV.SIG Q18H [facility] Rx#:[id number] Output: Urine 600 / 600 3250 / 3250 Urine Amount (Catheter) 650 / 650 Indwelling Urethral Catheter 650 / 650 Other: Date of Last Bowel Movement 02/10/18 02/10/18 Narrative: GENERAL: Pleasant elderly male in no acute distress. SKIN: warm and dry. HEENT: Pupils equal and reactive. EOMI. No scleral icterus or conjunctival pallor. No lid lag or facial droop. CARDIOVASCULAR: Regular rate and rhythm. No obvious murmurs to auscultation. No chest tenderness to palpation. RESPIRATORY: Diminished at bases, expiratory wheezing. GASTROINTESTINAL: Abdomen soft, non-tender, nondistended. BS normal. MUSCULOSKELETAL: Extremities without clubbing, cyanosis, or edema. No obvious deformities. NEUROLOGICAL: Awake, alert, oriented x3. Answering questions. Parkinsonian tremors noted. No focal neurologic deficits. Moving both upper and lower extremities spontaneously. Generalized weakness noted. PSYCHIATRIC: Appropriate mood. - Urinary Catheter Management Indwelling Urethral Catheter Cath placed during this visit: yes Reason for continuing: Acute urinary retention Insertion date: 02/09/18 Insertion time: 20:16 Results - Labs CBC & Chem 7: 02/10/18 08:26 02/11/18 02:35 Laboratory Results - last 24 hr 02/10/18 02/10/18 02/11/18 08:26 08:26 02:35 WBC 9.1 RBC 3.16 L Hgb 10.0 L Hct 28.4 L MCV 89.9 MCH 31.7 MCHC 35.3 RDW 13.5 Plt Count 210 MPV 7.8 Neut % (Auto) 84.8 H Lymph % (Auto) 5.6 L [place] % (Auto) 9.0 H Eos % (Auto) 0.4 Baso % (Auto) 0.2 Neut # (Auto) 7.7 Lymph # (Auto) 0.5 L [place] # (Auto) 0.8 Eos # (Auto) 0.0 Baso # (Auto) 0.0 WBC Differential . Differential Comment Auto diff final Sodium 140 Potassium 3.3 L Chloride 105 D Carbon Dioxide 27.1 Anion Gap 8 BUN 9 Creatinine 0.92 0.77 Estimated GFR 81 L Greater than 89 Random Glucose 159 H Calcium 7.8 L Total Bilirubin 0.8 AST 31 ALT 28 Alkaline Phosphatase 99 Total Protein 6.1 L Albumin 2.3 L Microbiology 02/09/18 20:15 Clean Catch Urine Urine Culture - Final No growth in 48 hours 02/09/18 20:15 Blood - Peripheral Aerobic Blood Culture - Preliminary No growth in 1 day 02/09/18 20:15 Blood - Peripheral Anaerobic Blood Culture - Preliminary No growth in 1 day 02/09/18 20:15 Blood - Peripheral Aerobic Blood Culture - Preliminary No growth in 1 day 02/09/18 20:15 Blood - Peripheral Anaerobic Blood Culture - Preliminary No growth in 1 day Assessment and Plan - Assessment (1) SIRS (systemic inflammatory response syndrome) Code(s): R65.10 - Systemic inflammatory response syndrome (SIRS) of non- infectious origin without acute organ dysfunction Status: Acute (2) PNA (pneumonia) Code(s): J18.9 - Pneumonia, unspecified organism Status: Acute (3) UTI (urinary tract infection) Code(s): N39.0 - Urinary tract infection, site not specified Status: Acute (4) Failure of outpatient treatment Code(s): Z78.9 - Other specified health status Status: Acute (5) Parkinson disease Code(s): G20 - Parkinson's disease Status: Acute - Plan 72-year-old male with a PMH of HTN, Hyperlipidemia and Parkinson's Disease who was brought to the ER by EMS secondary to fever, confusion and weakness. Pt's and cousins at bedside providing history. Per family, pt seen at [facility] on Monday for weakness and confusion, found to have UTI and d/c'd home on Keflex, states pt taking medications as prescribed. On day of admit, pt noted to be more confused w/ progressive weakness, persistent fevers and unable to ambulate independently like he normally does. On arrival, BP 194/95, HR 96, O2 sat 95% on RA, Temp 103. CBC essentially unremarkable. INR 1.0. Chemistry unremarkable except for GFR 79. Lactic Acid 2.1. UA positive for UTI. CXR with bibasilar infiltrates. CT Abdomen/Pelvis patchy dense consolidation right lower lobe, no acute findings in the abdomen and pelvis, moderate constipation. S/p Vanc/Zosyn in ER. SIRS/Sepsis: Temp 103, HR 96, Source-PNA/UTI -Continue with Zosyn and vancomycin, follow cultures, so far negative Influenza swab negative Lactic acid down to 0.8 Fevers trending down, less coughing -continue duo nebs -Wean down Solu-Medrol 40 mg IV every 12 Mucinex 600 mg p.o. twice daily -Improving, will change to p.o. antibiotics tomorrow. UTI, failed outpatient therapy, treated recently with Keflex since Monday for 3 days Continue to follow urine culture, so far negative Continue with IV antibiotics Monitor intake and output Parkinson's disease Follows w/ Dr. Santiago and Neurologist in [place] -Out of bed, continue with PT Continue with Azilect and Sinemet Hypertension Blood pressure noted elevated, up to 180s Continue with Lopressor 25 mg p.o. twice daily Continue clonidine 0.1 mg p.o. every 6 as needed for systolic greater than 160 and diastolic greater than 90 -We will add Norvasc 5 mg p.o. daily DVT Prophylaxis: SCD/Teds Case management consultation for discharge planning, arrange home health care with PT Continues to improve, possible discharge on Monday Code Status: Full code Discussed Condition With: RN, patient Discharge Planning: Poss dc with HHC and PT on Monday
[2018-02-11] MEDS: Budesonide-Formoterol 160/4.5 MCG 6 GM Inhaler INH SCH ×2 (09:46→20:46)
[2018-02-11] MEDS: Vancomycin Inj 1,500 MG in Sodium Chlor 0.9% Inj 500 ML IV.SIG SCH (09:48)
[2018-02-11] MEDS: amLODIPine 5 MG Tablet PO SCH (15:54)
[2018-02-12] MEDS ORDERED: MethylPREDNISolone Sod Succinate Inj 40 MG/ML Vial IV.PUSH SCH (01:00)
[2018-02-12] MEDS: Piperacil/Tazo 4.5 GM Premix 4.5 GM/100 ML BAG IV.SIG SCH ×2 (01:17→08:38)
[2018-02-12] MEDS: Vancomycin Inj 1,500 MG in Sodium Chlor 0.9% Inj 500 ML IV.SIG SCH (02:37)
[2018-02-12] MEDS ORDERED: Pharmacy Ordered Lab Info OTHER ONE (02:45)
[2018-02-12 06:12] LABS: Carbon Dioxide 27.6 meq/L (21.0-32.0); Potassium 3.4 meq/L (3.5-5.1)
[2018-02-12] MEDS ORDERED: Potassium Chloride 25 MEQ Effervescent Tablet PO ONE (07:47)
[2018-02-12] MEDS: Budesonide-Formoterol 160/4.5 MCG 6 GM Inhaler INH SCH ×2 (08:35→21:17)
[2018-02-12] MEDS: LINZESS 145 MCG PO SCH (08:35)
[2018-02-12] MEDS: Metoprolol Tartrate 25 MG Tablet PO SCH ×2 (08:37→21:17)
[2018-02-12] MEDS: Senna/Docusate Sodium 8.6/50 MG Tablet PO SCH ×2 (08:37→21:17)
[2018-02-12] MEDS: amLODIPine 5 MG Tablet PO SCH (08:38)
--- NOTE | 2018-02-12 09:21 | P.PN ---
Subjective Interval history: Follow-up for pneumonia, sepsisseen and examined. Oriented x 3, feels much better, eating well. Urinary retention, champion placed. No N/V/D. No cp, no sob. Cough much better. No fever. doesn't want Norvasc, tried before and dropped her BP too much. On oxygen 2L/NC 94%. Pt. anxious to go home Physical Exam Vital signs: Vital Signs 02/11/18 12:00 02/11/18 15:53 02/11/18 19:55 Temperature 97.4 F L 97.3 F L Pulse Rate 65 77 88 Respiratory Rate 18 16 Blood Pressure 168/77 H 138/63 Pulse Oximetry 97 94 L 02/11/18 20:00 02/11/18 20:33 02/12/18 00:00 Temperature 98.4 F 98.1 F Pulse Rate 88 62 Respiratory Rate 16 16 Blood Pressure 174/84 H 159/77 H Pulse Oximetry 93 L 93 L 95 02/12/18 03:21 02/12/18 04:00 02/12/18 05:39 Temperature 98.3 F Pulse Rate 63 80 77 Respiratory Rate 16 Blood Pressure 194/106 H Pulse Oximetry 94 L Intake & Output 02/11/18 02/12/18 02/12/18 18:59 06:59 18:59 Intake Total 1799 / 1799 715 / 715 Output Total 3250 / 3250 1500 / 1500 Balance -1451 / -1451 -785 / -785 Weight 83.6 kg Intake: IV 1799 / 1799 715 / 715 NS Inj 1,000 ML @ 100 mls/hr IV 1084 / 1084 .CONT .Q10H [facility] Rx#:[id number] Zosyn 4.5 GM Premix 4.5 gm In 200 / 200 200 / 200 100 ml @ 200 mls/hr IV.SIG Q6H [facility] Rx#:[id number] Vancomycin Inj 1,500 MG In NS 515 / 515 515 / 515 Inj 500 ML @ 250 mls/hr IV.SIG Q18H [facility] Rx#:[id number] Output: Urine 3250 / 3250 Urine Amount (Catheter) 1500 / 1500 Indwelling Urethral Catheter 1500 / 1500 Other: Date of Last Bowel Movement 02/11/18 02/11/18 Narrative: GENERAL: Pleasant elderly male in no acute distress. SKIN: warm and dry. HEENT: Pupils equal and reactive. EOMI. No scleral icterus or conjunctival pallor. No lid lag or facial droop. CARDIOVASCULAR: Regular rate and rhythm. No obvious murmurs to auscultation. No chest tenderness to palpation. RESPIRATORY: Diminished at bases otherwise clear GASTROINTESTINAL: Abdomen soft, non-tender, nondistended. BS normal. MUSCULOSKELETAL: Extremities without clubbing, cyanosis, or edema. No obvious deformities. NEUROLOGICAL: Awake, alert, oriented x3. Answering questions. Parkinsonian tremors noted. No focal neurologic deficits. Moving both upper and lower extremities spontaneously. Generalized weakness noted. PSYCHIATRIC: Appropriate mood. - Urinary Catheter Management Indwelling Urethral Catheter Cath placed during this visit: yes Reason for continuing: Acute urinary retention Insertion date: 02/09/18 Insertion time: 20:16 Results - Labs CBC & Chem 7: 02/10/18 08:26 02/12/18 04:35 Laboratory Results - last 24 hr 02/12/18 02/12/18 02:35 04:35 Sodium 141 Potassium 3.4 L Chloride 105 Carbon Dioxide 27.6 Anion Gap 8 BUN 16 Creatinine 0.91 Estimated GFR 82 L Random Glucose 262 H D Calcium 8.0 L Vancomycin Trough 11.6 H Microbiology 02/09/18 20:15 Blood - Peripheral Aerobic Blood Culture - Preliminary No growth in 2 days 02/09/18 20:15 Blood - Peripheral Anaerobic Blood Culture - Preliminary No growth in 2 days 02/09/18 20:15 Blood - Peripheral Aerobic Blood Culture - Preliminary No growth in 2 days 02/09/18 20:15 Blood - Peripheral Anaerobic Blood Culture - Preliminary No growth in 2 days 02/09/18 20:15 Clean Catch Urine Urine Culture - Final No growth in 48 hours Assessment and Plan - Assessment (1) SIRS (systemic inflammatory response syndrome) Code(s): R65.10 - Systemic inflammatory response syndrome (SIRS) of non- infectious origin without acute organ dysfunction Status: Acute (2) PNA (pneumonia) Code(s): J18.9 - Pneumonia, unspecified organism Status: Acute (3) UTI (urinary tract infection) Code(s): N39.0 - Urinary tract infection, site not specified Status: Acute (4) Failure of outpatient treatment Code(s): Z78.9 - Other specified health status Status: Acute (5) Parkinson disease Code(s): G20 - Parkinson's disease Status: Acute - Plan 72-year-old male with a PMH of HTN, Hyperlipidemia and Parkinson's Disease who was brought to the ER by EMS secondary to fever, confusion and weakness. Pt's and cousins at bedside providing history. Per family, pt seen at [facility] on Monday for weakness and confusion, found to have UTI and d/c'd home on Keflex, states pt taking medications as prescribed. On day of admit, pt noted to be more confused w/ progressive weakness, persistent fevers and unable to ambulate independently like he normally does. On arrival, BP 194/95, HR 96, O2 sat 95% on RA, Temp 103. CBC essentially unremarkable. INR 1.0. Chemistry unremarkable except for GFR 79. Lactic Acid 2.1. UA positive for UTI. CXR with bibasilar infiltrates. CT Abdomen/Pelvis patchy dense consolidation right lower lobe, no acute findings in the abdomen and pelvis, moderate constipation. S/p Vanc/Zosyn in ER. SIRS/Sepsis: Temp 103, HR 96, Source-PNA/UTI -Continue with Zosyn and vancomycin, follow cultures, so far negative Influenza swab negative Lactic acid down to 0.8 -continue duo nebs -DC steroids Mucinex 600 mg p.o. twice daily -Changed to PO Augmentin 1 tab PO BID -DC oxygen, keep sats > 92 UTI, failed outpatient therapy, treated recently with Keflex since Monday for 3 days Continue to follow urine culture, so far negative Continue with IV antibiotics Monitor intake and output Urinary retention, champion inserted -DC champion, monitor for voiding Parkinson's disease Follows w/ Dr. Santiago and Neurologist in [place] -Out of bed, continue with PT Continue with Azilect and Sinemet Hypertension Blood pressure noted elevated, up to 200s, better today. Continue with Lopressor 25 mg p.o. twice daily Continue clonidine 0.1 mg p.o. every 6 as needed for systolic greater than 160 and diastolic greater than 90 -BP better controlled, dc Norvasc. Hx of orthostatic hypotension -continue Jenniferf Coronary artery disease, recent stent last February 2017 Per patient's , he had stent placed last year and has another blockage that may need stent. He follows up with [facility] in [place] Continue with Plavix Continue with beta-cherie Continue with Lipitor -Continue aspirin DVT Prophylaxis: SCD/Teds Case management consultation for discharge planning, arrange home health care with PT Replace K Improving, no fever. Will dc champion Plan to dc tomorrow Code Status: Full code Discussed Condition With: RN, pt, cm Discharge Planning: DC home today or tomorrow with [facility]
[2018-02-12] MEDS: Amoxicillin/Clavulanate 875/125 MG Tablet PO SCH (21:17)
[2018-02-13 06:45] VITALS: TEMP 97.3; O2SAT 95
[2018-02-13 08:14] VITALS: BP 192/93; PULSE 74; RESP 17
[2018-02-13] MEDS: Senna/Docusate Sodium 8.6/50 MG Tablet PO SCH (08:43)
[2018-02-13] MEDS: Metoprolol Tartrate 25 MG Tablet PO SCH (08:43)
[2018-02-13] MEDS: Amoxicillin/Clavulanate 875/125 MG Tablet PO SCH (08:43)
[2018-02-13] MEDS: Budesonide-Formoterol 160/4.5 MCG 6 GM Inhaler INH SCH (08:46)
--- NOTE | 2018-02-13 08:47 | P.DS ---
Date of admission: 02/09/18 23:04 Primary care physician: UNKNOWN Anticipated date of discharge: 02/13/18 Brief History from admission: This is a 72-year-old male with a PMH of HTN, Hyperlipidemia and Parkinson's Disease who was brought to the ER by EMS secondary to fever, confusion and weakness. Pt's and cousins at bedside providing history. Per family, pt seen at [facility] on Monday for weakness and confusion, found to have UTI and d /c'd home on Keflex, states pt taking medications as prescribed. Today, pt noted to be more confused w/ progressive weakness, persistent fevers and unable to ambulate independently like he normally does. states he follows w/ Dr. Santiago and w/ a Neurologist back in [place] for Parkinson's, contacted Dr. Santiago office today and was told to go to the ER for further evaluation. On arrival, BP 194/95, HR 96, O2 sat 95% on RA, Temp 103. CBC essentially unremarkable. INR 1.0. Chemistry unremarkable except for GFR 79. Lactic Acid 2.1. UA positive for UTI. CXR with bibasilar infiltrates. CT Abdomen/Pelvis patchy dense consolidation right lower lobe, no acute findings in the abdomen and pelvis, moderate constipation. S/p Vanc/Zosyn in ER. Patient update on day of discharge: Patient reports no shortness of breath. Breathing okay. No other concerns at this time. No complaints of chest pain. Wants to go home. states that they will remain here until February 24 and will return back to [place]. They are not currently staying in a condo. DS: Diagnosis - Discharge Diagnosis (1) Severe sepsis Status: Resolved Diagnosis: Principal (2) Community acquired pneumonia Status: Resolved Diagnosis: Principal (3) UTI (urinary tract infection) Status: Resolved Diagnosis: Principal (4) Failure of outpatient treatment Status: Resolved Diagnosis: Principal (5) Parkinson disease Status: Chronic Diagnosis: Secondary DS: Medications - Discharge Medications Prescriptions: budesonide-formoterol [Symbicort] 2 puff INH BID 30 Days #1 g hydrocortisone 1 applic TOPICAL BID #1 g levofloxacin 750 mg PO DAILY #6 tab DS: Summary Hospital Course: These are the medical issues addressed during this hospitalization: 72-year-old male with a PMH of HTN, Hyperlipidemia and Parkinson's Disease who was brought to the ER by EMS secondary to fever, confusion and weakness. Severe sepsis: Temp 103, HR 96, Fehdvr-gmzjbllts-keytojeo PNA/UTI -Continue with Zosyn and vancomycin, blood cultures were negative during the hospitalization Influenza swab negative Lactic acid on presentation was 2.1 and trended down to 0.8 -continue duo nebs -Initial steroids were given and then weaned off. Mucinex 600 mg p.o. twice daily -IV Zosyn changed to PO Augmentin 1 tab PO BID upon transition to home. -Oxygen was able to be weaned off during the hospitalization. UTI, failed outpatient therapy, treated recently with Keflex since Monday for 3 days Urine cultures remain negative. Treated with IV antibiotics Initial urinary retention, champion inserted now resolved. -DC champion, monitor for voiding Parkinson's disease Follows w/ Dr. Santiago and Neurologist in [place] -Out of bed, continue with PT Continue with Azilect and Sinemet Hypertension, chronic Blood pressure noted elevated, up to 200s, better today. Continue with Lopressor 25 mg p.o. twice daily Continue clonidine 0.1 mg p.o. every 6 as needed for systolic greater than 160 and diastolic greater than 90 -BP better controlled, dc Norvasc. does not want to continue with the Norvasc. Hx of orthostatic hypotension -continue Jocy Coronary artery disease, recent stent last February 2017 Per patient's , he had stent placed last year and has another blockage that may need stent. 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 - Time Spent with Patient Total time spent providing and/or coordinating discharge services: Less than 30 minutes - Quality: VTE Deep Vein Thrombosis/Pulmonary Embolism Present on Admission: No Exam Vital signs: Vital Signs 02/12/18 12:00 02/12/18 16:18 02/12/18 18:01 Temperature 98.6 F 97.3 F L 97.8 F Pulse Rate 68 67 Respiratory Rate 18 18 Blood Pressure 168/88 H 195/93 H Pulse Oximetry 95 95 02/12/18 20:00 02/12/18 20:06 02/13/18 00:00 Temperature 97.5 F L 97.9 F Pulse Rate 76 85 74 Respiratory Rate 18 18 Blood Pressure 156/74 H 170/78 H Pulse Oximetry 94 L 96 02/13/18 00:06 02/13/18 04:00 02/13/18 08:00 Temperature 97.3 F L 97.3 F L Pulse Rate 85 70 74 Respiratory Rate 19 17 Blood Pressure 215/99 H 192/93 H Pulse Oximetry 95 95 Intake & Output 02/12/18 02/13/18 02/13/18 18:59 06:59 18:59 Intake Total 640 / 640 Output Total 1225 / 1225 250 / 250 Balance -585 / -585 -250 / -250 Weight 81.3 kg Intake: IV 100 / 100 Zosyn 4.5 GM Premix 4.5 gm In 100 / 100 100 ml @ 200 mls/hr IV.SIG Q6H GODFREY Rx#:[id number] Oral 540 / 540 Output: Urine 200 / 200 250 / 250 Urine Amount (Catheter) 1025 / 1025 Indwelling Urethral Catheter 1025 / 1025 Other: # Voids 5 Date of Last Bowel Movement 02/12/18 # Bowel Movements 0 Narrative: GENERAL: This is a well-nourished, well-developed patient, in no apparent distress. CARDIOVASCULAR: Regular rate and rhythm RESPIRATORY: Slight diminished breath sounds in the left base GASTROINTESTINAL: Abdomen soft, non-tender, nondistended. Normal active bowel sounds MUSCULOSKELETAL: Extremities without clubbing, cyanosis, or edema. NEURO: Alert & Oriented x4 to person, place, time, situation. Moves all ext x4 Results Procedures completed during hospitalization: none Labs on day of discharge: Labs from last 24 hours 02/13/18 06:45 Creatinine 0.87 Estimated GFR 86 L Preliminary micro results at discharge 02/09/18 20:15 Aerobic Blood Culture - Preliminary Blood - Peripheral No growth in 3 days Anaerobic Blood Culture - Preliminary No growth in 3 days 02/09/18 20:15 Aerobic Blood Culture - Preliminary Blood - Peripheral No growth in 3 days Anaerobic Blood Culture - Preliminary No growth in 3 days - Impressions ITS Impressions Chest X-Ray 02/09/18 19:53 CONCLUSION: 1. Perihilar and bibasilar infiltrates consistent with pulmonary vascular congestion versus pneumonia. Clinical correlation is recommended. 2. Mild cardiomegaly. 3. Elevation of the right hemidiaphragm. Abdomen/Pelvis CT 02/09/18 19:54 CONCLUSION: 1. Patchy dense consolidation right lower lobe most characteristic of pneumonia or aspiration. Small bilateral pleural effusions. 2. No acute findings within the abdomen and pelvis. Atrophic right kidney. Moderate constipation. Champion catheter in decompressed bladder. Discharge Plan - Discharge Disposition Patient Disposition: W/Home Health Service - Discharge Condition Condition: Stable - Discharge Order Discharge Orders: Discharge Order (Routine); Ordered 02/13/18 Ordered By: Solange Chen - Discharge Details Anticipated Discharge Date: 02/13/18 - Physicians Team Primary Care Provider: UNKNOWN, Attending Provider: Solange Chen
[2018-02-13] MEDS: LINZESS 145 MCG PO SCH (08:49)
[2018-02-13] MEDS ORDERED: levoFLOXacin 750 MG Tablet PO SCH (09:15)
[2018-02-13] MEDS ORDERED: Lisinopril 10 MG Tablet PO ONE (09:30)
== END 2018-02-13 11:39 | disposition home health service (06) ==
LOC: NEPC 19:28 → NEDA 23:04 → N07 02-10 01:01
PROVIDERS: ADMIT Family Medicine; ATTEND Family Medicine